=== PATIENT | female | born 1990 | race Caucasian/White ===

== ENCOUNTER 2020-04-24 19:06 | Emergency (ER) | payer OTHER, SELFPAY ==
[2020-04-24 19:20] VITALS: BP 161/88; PULSE 92; RESP 20; TEMP 36.6; O2SAT 100
[2020-04-24 21:35] VITALS: BP 153/109; PULSE 75; RESP 13; O2SAT 98
--- NOTE | 2020-04-24 22:45 | ED.URI ---
HPI - URI/Sore Throat General Chief Complaint: Upper Respiratory Infection Stated Complaint: throat pain Time Seen by Provider: 04/24/20 22:41 Source: patient Mode of arrival: ambulatory Limitations: no limitations History of Present Illness HPI Narrative: 30-year-old with no major medical problems here with complaints of sore throat on and off for past few days complains of occasional shortness of breath. She denies any cough or fever or chills. MD elicited complaint: sore throat Onset (ago): day(s) (2) Consistency: constant Exacerbating factors: swallowing Relieving factors: nothing Associated symptoms: nasal congestion and sore throat Treatments prior to arrival: none Related Data Allergies Allergy/AdvReac Type Severity Reaction Status Date / Time No Known Allergies Allergy Verified 12/18/15 23:05 Review of Systems Review of Systems: All systems reviewed & are unremarkable except as noted in HPI and below Constitutional: Constitutional: Reports no additional constitutional complaints Eyes: Eyes: Reports no additional eye complaints ENT: Reports as per HPI Cardiovascular: Cardiovascular: Reports no additional cardiovascular complaints Respiratory: Respiratory: Reports dyspnea Musculoskeletal: Musculoskeletal: Reports no additional musculoskeletal complaints Integumentary/Breasts: Skin/Breast: Reports system reviewed and no additional complaints, except as docu Neurologic: Reports system reviewed and no additional complaints, except as documented PMFSH Family History Family History Father Family history of diabetes mellitus in first degree relative Social History Social History Smoking status: Former smoker Second hand tobacco smoke exposure: No Smoking end date: 03/14/13 Alcohol intake: never Gender identity (if verbalized by the patient): Female Exam Narrative: Exam Narrative: GENERAL: Well-appearing, well-nourished, and in no acute distress. HEAD: Normocephalic, atraumatic. EYES: PERRLA and EOMI. ENT: Nares clear, no rhinorrhea or epistaxis. Mucous membranes moist. Mild erythematous tonsillar fossa but no exudates NECK: Supple. CHEST: Clear to auscultation. No respiratory distress. HEART: Regular rate and rhythm. No murmur heard. Normal peripheral pulses. EXTREMITIES: Normal range of motion. No edema. SKIN: Warm, dry, no rash. NEURO: No focal deficits. Alert and oriented x3. PSYCH: Normal mood and affect. Course Course Emergency Course: Inform patient about her lab findings advised her to take amoxicillin 3 times a day and follow-up with her primary doctor also recommended her to recheck her blood pressure in few days with her primary doctor. Vital Signs Vital signs: Vital Signs Temperature 36.6 C 04/24/20 19:20 Pulse Rate 92 04/24/20 19:20 Respiratory Rate 20 04/24/20 19:20 Blood Pressure 161/88 H 04/24/20 19:20 Pulse Oximetry 100 04/24/20 19:20 Temperature 36.6 C 04/24/20 19:20 Pulse Rate 75 04/24/20 21:35 Respiratory Rate 13 04/24/20 21:35 Blood Pressure 153/109 H 04/24/20 21:35 Pulse Oximetry 98 04/24/20 21:35 MDM - URI/Sore Throat Lab Data Labs: Strep Screen Presumptive Negative *(Reference Range: Negative)* Discharge Plan Discharge Clinical Impression: Acute streptococcal pharyngitis Hypertension Qualifiers: Hypertension type: unspecified Qualified Code(s): I10 - Essential (primary) hypertension Patient Disposition: Home, Self-Care Condition: Stable Instructions: Antibiotic Form, Strep Throat (DC) Additional Instructions: Take antibiotic as prescribed, follow-up with your primary doctor regarding your high blood pressure Prescriptions: New amoxicillin 875 mg tablet 875 mg PO Q12H Qty: 20 RF: 0 Follow-up/Referrals: João Jones MD [P
[2020-04-24 22:53] VITALS: BP 140/78; PULSE 72; RESP 18; O2SAT 100
== END 2020-04-24 22:54 | disposition home or self-care (01) ==
PROVIDERS: Emergency Provider Family Medicine; PCP Family Medicine
DX: J02.0 Streptococcal pharyngitis (principal); I10 Essential (primary) hypertension; Z87.891 Personal history of nicotine dependence
CPT/HCPCS: 87081; 87880; 99283

== ENCOUNTER 2020-06-03 23:52 | Emergency (ER) | payer OTHER, SELFPAY ==
[2020-06-03 23:56] VITALS: BP 146/74; PULSE 80; RESP 22; TEMP 36.3; O2SAT 100
--- NOTE | 2020-06-04 00:35 | ED.GENADULT ---
HPI - General Adult General Chief complaint: Upper Respiratory Infection Stated complaint: congestion, cold, numbness Time Seen by Provider: 06/04/20 00:29 History of Present Illness HPI narrative: Patient 30-year-old female who presents to emergency department with chief complaint of nasal congestion generalized weakness and body aches. Patient states she was tested for Covid about 3 weeks ago reports that she has had drainage from her nose that she states initially was yellow to green but then was transitioned to clear after she has been taking [id number] Mucinex. Patient states she is not had fevers but states she is just felt weak and is also reported that she has felt a little nauseated and also had some body aches. Related Data Allergies Allergy/AdvReac Type Severity Reaction Status Date / Time No Known Allergies Allergy Verified 12/18/15 23:05 Review of Systems Review of Systems: Narrative: A 10 system review of systems was completed on the patient and is negative except for what is stated in the HPI. Nursing and ancillary documentation was reviewed. [facility] Family History Family History Father Family history of diabetes mellitus in first degree relative Social History Social History Smoking status: Former smoker Second hand tobacco smoke exposure: No Smoking end date: 03/14/13 Alcohol intake: never Gender identity (if verbalized by the patient): Male Exam Narrative: Exam Narrative: GENERAL: Well-appearing, well-nourished, and in no acute distress. HEAD: Normocephalic, atraumatic. EYES: PERRLA and EOMI. ENT: Nares clear, no rhinorrhea or epistaxis. Mucous membranes moist. NECK: Supple. CHEST: Clear to auscultation. No respiratory distress. HEART: Regular rate and rhythm. No murmur heard. Normal peripheral pulses. ABDOMEN: Soft, nontender, nondistended, normal active bowel sounds. EXTREMITIES: Normal range of motion. No edema. SKIN: Warm, dry, no rash. NEURO: No focal deficits. Alert and oriented x3. PSYCH: Normal mood and affect. Course Course Emergency Course: l Vital Signs Vital signs: Vital Signs Temperature 36.3 C L 06/03/20 23:56 Pulse Rate 80 06/03/20 23:56 Respiratory Rate 22 H 06/03/20 23:56 Blood Pressure 146/74 H 06/03/20 23:56 Pulse Oximetry 100 06/03/20 23:56 Temperature 36.3 C L 06/03/20 23:56 Pulse Rate 80 06/03/20 23:56 Respiratory Rate 22 H 06/03/20 23:56 Blood Pressure 146/74 H 06/03/20 23:56 Pulse Oximetry 100 06/03/20 23:56 Medical Decision Making Vital Signs Vital Signs: Vital Signs Temperature 36.3 C L 06/03/20 23:56 Pulse Rate 80 06/03/20 23:56 Respiratory Rate 22 H 06/03/20 23:56 Blood Pressure 146/74 H 06/03/20 23:56 Pulse Oximetry 100 06/03/20 23:56 Temperature 36.3 C L 06/03/20 23:56 Pulse Rate 80 06/03/20 23:56 Respiratory Rate 22 H 06/03/20 23:56 Blood Pressure 146/74 H 06/03/20 23:56 Pulse Oximetry 100 06/03/20 23:56 Discharge Plan Discharge Clinical Impression: Acute bacterial sinusitis Patient Disposition: Home, Self-Care Condition: Stable Instructions: Antibiotic Form, Sinusitis (ED) Prescriptions: New amoxicillin-pot clavulanate [Augmentin] 875-125 mg tablet 1 tablet PO Q12H Qty: 20 RF: 0 No Action amoxicillin 875 mg tablet 875 mg PO Q12H Qty: 20 RF: 0 Follow-up/Referrals: João Jones MD [Primary Care Provider] - Stand Alone Forms: Work/School Release IP Time of Disposition: 00:39
[2020-06-04] MEDS: AMOXICILLIN/CLAVULANATE K 875-125 MG TAB 1 TABLET PO (01:01)
[2020-06-04 01:44] VITALS: BP 148/86; PULSE 84; RESP 18; TEMP 36.8; O2SAT 98
== END 2020-06-04 01:45 | disposition home or self-care (01) ==
LOC: ANHED 06-04 00:42
PROVIDERS: Emergency Provider Emergency Medicine; PCP Family Medicine
DX: J01.90 Acute sinusitis, unspecified (principal); B96.89 Other specified bacterial agents as the cause of diseases classified elsewhere; Z87.891 Personal history of nicotine dependence
CPT/HCPCS: 99283; A9270

== ENCOUNTER 2020-08-14 23:35 | Emergency (ER) | payer OTHER, SELFPAY ==
[2020-08-14 23:52] VITALS: BP 149/76; PULSE 66; RESP 18; TEMP 36.4; O2SAT 100
[2020-08-15 00:59] VITALS: PULSE 70; RESP 18; TEMP 36.6; O2SAT 100
[2020-08-15 01:37] VITALS: BP 139/104; PULSE 78; RESP 12; O2SAT 100
--- NOTE | 2020-08-15 01:48 | ED.GENADULT ---
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 patient denies any URI symptoms or other complaints Related Data Allergies Allergy/AdvReac Type Severity Reaction Status Date / Time No Known Allergies Allergy Verified 08/14/20 23:54 Review of Systems Review of Systems: All systems reviewed & are unremarkable except as noted in HPI and below PMFSH Family History Family History Father Family history of diabetes mellitus in first degree relative Social History Social History Smoking status: Former smoker Second hand tobacco smoke exposure: No Smoking end date: 03/14/13 Alcohol intake: never Gender identity (if verbalized by the patient): Female Exam Narrative: Exam Narrative: GENERAL: Well-appearing, well-nourished, and in no acute distress. HEAD: Normocephalic, atraumatic. EYES: PERRLA and EOMI. ENT: Nares clear, no rhinorrhea or epistaxis. Mucous membranes moist. Oropharynx without tonsillar hypertrophy exudate or other lesions. Bilateral TMs pearly quan nonbulging tenderness at the right external canal with slight redness CHEST: Clear to auscultation. No respiratory distress. No wheezes rales or rhonchi HEART: Regular rate and rhythm. No murmur heard. EXTREMITIES: Normal range of motion. No edema. SKIN: Warm, dry, no rash. NEURO: No focal deficits. Alert and oriented x3. PSYCH: Normal mood and affect. Course Course Emergency Course: Patient with irritation of the right ear patient will be referred to ENT agrees with this is afebrile nontoxic-appearing no distress Vital Signs Vital signs: Vital Signs Temperature 97.5 F L 08/14/20 23:52 Pulse Rate 66 08/14/20 23:52 Respiratory Rate 18 08/14/20 23:52 Blood Pressure 149/76 H 08/14/20 23:52 Pulse Oximetry 100 08/14/20 23:52 Temperature 98 F 08/15/20 00:59 Pulse Rate 78 08/15/20 01:37 Respiratory Rate 12 08/15/20 01:37 Blood Pressure 139/104 H 08/15/20 01:37 Pulse Oximetry 100 08/15/20 01:37 Medical Decision Making MDM Narrative Medical decision making narrative: Patient presented with right ear pain with history of ear infections will be discharged home with follow-up with ENT Vital Signs Vital Signs: Vital Signs Temperature 97.5 F L 08/14/20 23:52 Pulse Rate 66 08/14/20 23:52 Respiratory Rate 18 08/14/20 23:52 Blood Pressure 149/76 H 08/14/20 23:52 Pulse Oximetry 100 08/14/20 23:52 Temperature 98 F 08/15/20 00:59 Pulse Rate 78 08/15/20 01:37 Respiratory Rate 12 08/15/20 01:37 Blood Pressure 139/104 H 08/15/20 01:37 Pulse Oximetry 100 08/15/20 01:37 Discharge Plan Discharge Clinical Impression: Acute pain of right ear Patient Disposition: Home, Self-Care Condition: Stable Instructions: Antibiotic Form, Ear Infection (AC) Additional Instructions: Follow up with your ENT within 1-2 days to set up for reevaluation. Go to ER for shortness of breath, difficulty breathing, chest pain, fever/chills, weakness, nauseau/vomitting, etc. or any other concerns. Take any prescribed medications as directed. If you do not have a drug allergy to tylenol or motrin and can tolerate it then take tylenol or motrin as needed for discomfort/pain. Prescriptions: New amoxicillin 500 mg capsule 500 mg PO Q12H 10 Days Qty: 20 RF: 0 Follow-up/Referrals: João Jones MD [Primary Care Provider] -
== END 2020-08-15 02:00 | disposition home or self-care (01) ==
PROVIDERS: Emergency Provider Emergency Medicine; PCP Family Medicine
DX: H92.01 Otalgia, right ear (principal); Z87.891 Personal history of nicotine dependence
CPT/HCPCS: 99283

== ENCOUNTER 2020-12-29 13:49 | Emergency (ER) | payer OTHER, SELFPAY ==
[2020-12-29] VITALS (9 sets, daily range): BP systolic 136–158; BP diastolic 82–103; PULSE 70–78; RESP 14–18; TEMP 36.6; O2SAT 96–100
--- NOTE | ~2020-12-29 | XR_ITS ---
EXAMINATION: XR chest 2V 12/29/2020 14:57 INDICATION: Left-sided chest pain PROCEDURE: 2 view chest COMPARISON: No prior studies for comparison. FINDINGS: The lungs are clear. The cardiomediastinal silhouette is within normal limits. There are no pleural effusions. There is no pneumothorax suspected. IMPRESSION: 1: NO ACUTE CARDIOPULMONARY DISEASE. Reviewed, dictated and finalized at location B.
--- NOTE | 2020-12-29 14:03 | ECG_ITS ---
Measurements Intervals [place] Rate: 74 P: 42 AL: 178 QRS: 25 QRSD: 105 T: 49 QT: 392 QTc: 437 Interpretive Statements SINUS RHYTHM BORDERLINE R WAVE PROGRESSION, ANTERIOR LEADS BORDERLINE ECG Electronically Signed On 12-29-2020 14:35:34 CDT by Romain Diana D.O.
[2020-12-29 14:30] LABS: Basophils Percent Auto 0.3 % (0.2-1.2); Eosinophils Absolute Auto 0.3 K/mm3 (0-0.3); Hematocrit 34.9 % (37.0-47.0); Hemoglobin 11.1 g/dL (12.0-15.0); Immature Granulocyte Absolute 0.04 K/mm3 (0.00-0.031); Immature Granulocyte Percent A 0.4 % (0-0.5); Lymphocytes Absolute Auto 1.79 K/mm3 (0.9-3.2); Lymphocytes Percent Auto 18.3 % (18.3-44.2); Mean Corpuscular HGB Conc 31.8 g/dl (32-36); Mean Corpuscular Hemoglobin 25.4 pg (26-34); Mean Corpuscular Volume 79.9 fl (80-100); Mean Platelet Volume 9.5 fl (7.4-10.4); Monocytes Absolute Auto 0.5 K/mm3 (0.1-0.6); Monocytes Percent Auto 4.8 % (2.6-8.5); Neutrophils Absolute Auto 7.2 K/mm3 (1.3-6.7); Neutrophils Percent Auto 73.2 % (45.5-73.1); Platelet Count Result 358 k/mm3 (150-375); Red Blood Count 4.37 M/mm3 (4.2-5.4); Red Cell Distribution Width 15.3 % (11.5-14.5); White Blood Count 9.8 K/mm3 (4.5-10.0)
[2020-12-29 14:40] LABS: Anion Gap 11 mmol/L (8-16); Blood Urea Nitrogen 7 mg/dL (7-17); Carbon Dioxide 22 mmol/L (22-30); Chloride 105 mmol/L (98-107); Estimated CRCL calculation 151 ml/min; Estimated Glomerular Filt Rate > 60; Glucose 99 mg/dL (65-110); Sodium 138 mmol/L (137-145)
[2020-12-29 14:48] LABS: Prothrombin Time 13.4 Seconds (11.1-14.7)
[2020-12-29 14:49] LABS: Partial Thromboplastin Time 29.9 SECONDS (22.3-36.8)
[2020-12-29 14:52] LABS: Troponin I < 0.012 ng/mL (0.000-0.034)
--- NOTE | 2020-12-29 16:08 | ED.GENADULT ---
HPI - General Adult General Chief complaint: Anxiety Stated complaint: anxiety Time Seen by Provider: 12/29/20 15:08 History of Present Illness HPI narrative: Patient is a 30-year-old female who presents ER after having what she thinks is an anxiety attack. Reports she is driving and was on the phone with her boyfriend when she started to feel anxious. She reports her heart was racing and she was short of breath similar to previous anxiety attacks. However she felt like she had some blurred vision and some numbness in her left forearm from her elbow to her wrist. Symptoms lasted about 5 minutes and she is able to breathe slowly to get herself through the event which is typical for her. No subsequent events. No loss of consciousness. Denies chest pain or chest pressure. No new medications. Denies any recent stressors. No history of arrhythmia. Symptoms occurred at 1 PM. Related Data Allergies Allergy/AdvReac Type Severity Reaction Status Date / Time sulfamethoxazole AdvReac Mild Vomiting Verified 12/29/20 15:13 [From Bactrim] trimethoprim [From Bactrim] AdvReac Mild Vomiting Verified 12/29/20 15:13 Review of Systems Review of Systems: All systems reviewed & are unremarkable except as noted in HPI and below Constitutional: Constitutional: Denies chills, Denies fever(s) and Denies weakness ENT: Denies nasal congestion and Denies sore throat Cardiovascular: Cardiovascular: Denies chest pain, Denies rapid heart rate and Denies radiating jaw, neck or arm pain Respiratory: Respiratory: Denies cough, Reports dyspnea and Denies wheezing Neurologic: Denies syncope, Denies focal weakness and Reports numbness Psychiatric: Psychiatric: Reports anxiety and Denies depression [facility] Past Medical History Medical History (Updated 12/29/20 @ 16:16 by Roger Calderon MD) Anxiety Surgical History Surgical History (Updated 12/29/20 @ 16:10 by Roger Calderon MD) History of section Family History Family History Father Family history of diabetes mellitus in first degree relative Social History Social History Smoking status: Former smoker Second hand tobacco smoke exposure: No Smoking end date: 03/14/13 Alcohol intake: never Substance use type: does not use Gender identity (if verbalized by the patient): Female Exam Narrative: GENERAL: Well-appearing, well-nourished, and in no acute distress. HEAD: Normocephalic, atraumatic. EYES: PERRL and EOMI. CHEST: Clear to auscultation. No respiratory distress. HEART: Regular rate and rhythm. Normal peripheral pulses. Sensation intact in extremities. ABDOMEN: Soft, nontender, nondistended. EXTREMITIES: Normal range of motion. No edema. SKIN: Warm, dry, no rash. NEURO: Alert and oriented x3. PSYCH: Normal mood and affect. Course Vital Signs Vital signs: Vital Signs Temperature 97.8 F 12/29/20 14:00 Pulse Rate 78 12/29/20 14:00 Respiratory Rate 14 12/29/20 14:00 Blood Pressure 151/101 H 12/29/20 14:00 Pulse Oximetry 100 12/29/20 14:00 Temperature 97.8 F 12/29/20 14:00 Pulse Rate 70 12/29/20 15:05 Respiratory Rate 17 12/29/20 15:05 Blood Pressure 158/97 H 12/29/20 15:05 Pulse Oximetry 100 12/29/20 15:05 Medical Decision Making Vital Signs Vital Signs: Vital Signs Temperature 97.8 F 12/29/20 14:00 Pulse Rate 78 12/29/20 14:00 Respiratory Rate 14 12/29/20 14:00 Blood Pressure 151/101 H 12/29/20 14:00 Pulse Oximetry 100 12/29/20 14:00 Temperature 97.8 F 12/29/20 14:00 Pulse Rate 70 12/29/20 15:05 Respiratory Rate 17 12/29/20 15:05 Blood Pressure 158/97 H 12/29/20 15:05 Pulse Oximetry 100 12/29/20 15:05 Lab Data Result diagrams: 12/29/20 14:09 12/29/20 14:09 Labs: Lab Results 12/29/20 12/29/20 12/29/20 Range/Unit
== END 2020-12-29 16:29 | disposition home or self-care (01) ==
PROVIDERS: Emergency Provider Emergency Medicine; PCP Family Medicine
DX: F41.9 Anxiety disorder, unspecified (principal); Z87.891 Personal history of nicotine dependence; R00.2 Palpitations; R94.31 Abnormal electrocardiogram [ECG] [EKG]
CPT/HCPCS: 36415; 71046; 80048; 84484; 85025; 85610; 85730; 93005; 99284

== ENCOUNTER 2021-01-08 12:25 | Emergency (ER) | payer OTHER, SELFPAY ==
[2021-01-08] VITALS (16 sets, daily range): BP systolic 137–150; BP diastolic 66–89; PULSE 65–78; RESP 11–21; TEMP 36.2–36.5; O2SAT 98–100
--- NOTE | ~2021-01-08 | XR_ITS ---
EXAMINATION: XR chest 2V DATE: 01/08/2021 13:30 INDICATION: Chest pain and shortness of breath TECHNIQUE: PA and lateral views of the chest are obtained. COMPARISON: 12/29/2020 FINDINGS: The lungs are free of acute opacities. There is no pleural effusion or pneumothorax. The ca rdiomediastinal silhouette is normal. There is moderate thoracic spondylosis. IMPRESSION: 1. No acute cardiopulmonary abnormality. Reviewed, dictated and finalized at location A.
--- NOTE | 2021-01-08 12:46 | ECG_ITS ---
Measurements Intervals [place] Rate: 71 P: 36 HI: 176 QRS: 30 QRSD: 100 T: 52 QT: 393 QTc: 428 Interpretive Statements SINUS RHYTHM ANTERIOR INFARCT, AGE INDETERMINATE ABNORMAL ECG Electronically Signed On 01-08-2021 13:12:34 CDT by Romain Diana D.O.
[2021-01-08 13:23] LABS: Basophils Percent Auto 0.4 % (0.2-1.2); Eosinophils Absolute Auto 0.3 K/mm3 (0-0.3); Eosinophils Percent Auto 3.8 % (0-4.4); Hematocrit 35.8 % (37.0-47.0); Hemoglobin 11.3 g/dL (12.0-15.0); Immature Granulocyte Absolute 0.02 K/mm3 (0.00-0.031); Immature Granulocyte Percent A 0.3 % (0-0.5); Lymphocytes Absolute Auto 1.81 K/mm3 (0.9-3.2); Lymphocytes Percent Auto 25.3 % (18.3-44.2); Mean Corpuscular HGB Conc 31.6 g/dl (32-36); Mean Corpuscular Hemoglobin 25.9 pg (26-34); Mean Corpuscular Volume 82.1 fl (80-100); Mean Platelet Volume 9.6 fl (7.4-10.4); Monocytes Absolute Auto 0.4 K/mm3 (0.1-0.6); Monocytes Percent Auto 5.7 % (2.6-8.5); Neutrophils Absolute Auto 4.6 K/mm3 (1.3-6.7); Neutrophils Percent Auto 64.5 % (45.5-73.1); Platelet Count Result 333 k/mm3 (150-375); Red Blood Count 4.36 M/mm3 (4.2-5.4); Red Cell Distribution Width 15.1 % (11.5-14.5); White Blood Count 7.2 K/mm3 (4.5-10.0)
[2021-01-08 13:31] LABS: Anion Gap 10 mmol/L (8-16); Blood Urea Nitrogen 8 mg/dL (7-17); Calcium 9.2 mg/dL (8.4-10.2); Carbon Dioxide 22 mmol/L (22-30); Chloride 106 mmol/L (98-107); Estimated CRCL calculation 180 ml/min; Estimated Glomerular Filt Rate > 60; Glucose 95 mg/dL (65-110); Potassium 4.3 mmol/L (3.4-5.0); Sodium 138 mmol/L (137-145)
[2021-01-08 13:36] LABS: Prothrombin Time 13.4 Seconds (11.1-14.7)
[2021-01-08 13:37] LABS: Partial Thromboplastin Time 28.2 SECONDS (22.3-36.8)
[2021-01-08 13:43] LABS: Troponin I < 0.012 ng/mL (0.000-0.034)
[2021-01-08 13:47] LABS: Add Urine Microscopic? YES; Appearance Urine Cloudy (Clear); Bilirubin Urine Negative (Negative); Blood Urine Negative (Negative); Color Urine Yellow (Yellow); Glucose Urine UA Negative (Negative); Ketones Urine Negative (Negative); Leukocyte Esterase Ur Trace LEU/UL (Negative); Nitrate Urine Negative (Negative); Protein Urine Negative (Negative); Specific Grav Ur 1.015 (1.001-1.035); Squamous Epithelial Cell Urine Many /hpf (Few)
--- NOTE | 2021-01-08 16:22 | ED.ANXIETY ---
HPI - Anxiety General Chief Complaint: Anxiety Stated Complaint: cp/anxiety Time Seen by Provider: 01/08/21 16:22 Source: patient Mode of arrival: ambulatory Limitations: no limitations History of Present Illness HPI narrative: Patient is an 30-year-old female with history of morbid obesity, hypertension, presenting for evaluation of intermittent chest pain. Patient states that she has had intermittent chest pain over the past several weeks. At times the chest pain will occur when she is driving, at times it occurs with activity. Pain is located in the center of her chest, described as aching in nature without radiation to the jaw or neck. She sometimes experiences back pain. She denies any diaphoresis but does report nausea. Denies any recent episodes of vomiting. She denies ripping or tearing sensation to the lower flanks. Patient denies fever, chills, cough. At times she does feel short of breath. Patient reports she has intermittent leg swelling but denies any current calf pain or leg swelling. No rashes. Patient is not vaccinated for Covid. No known history of Covid infection. No recent upper respiratory infection type symptoms. Patient states that she is very anxious about various things in her life, is worried that she perhaps has had a heart attack. Patient does not smoke. She is on Nexplanon for control. She denies history of coagulopathy. No recent car or air travel. Related Data Allergies Allergy/AdvReac Type Severity Reaction Status Date / Time sulfamethoxazole AdvReac Mild Vomiting Verified 12/29/20 15:13 [From Bactrim] trimethoprim [From Bactrim] AdvReac Mild Vomiting Verified 12/29/20 15:13 Review of Systems Review of Systems: CONSTITUTIONAL: Denies fever, chills, or sweats. EYES: Denies visual changes, redness, or discharge. ENT: Denies rhinorrhea, congestion, sore throat, or otalgia. CARDIOVASCULAR: Reports chest pain without palpitations, reports intermittent leg edema, denies leg edema currently RESPIRATORY: Denies cough, reports intermittent shortness of breath GASTROINTESTINAL: Denies abdominal pain, reports nausea without vomiting GENITOURINARY: Denies dysuria or hematuria. SKIN: Denies rash or itching. MUSCULOSKELETAL: Denies back pain, joint pain, or myalgia. NEUROLOGIC: Denies headache, numbness, or weakness. PSYCHIATRIC: Reports anxiety, denies homicidal or suicidal ideation PMFSH Past Medical History Medical History Anxiety Surgical History Surgical History History of section Family History Family History Father Family history of diabetes mellitus in first degree relative Social History Social History Smoking status: Former smoker Second hand tobacco smoke exposure: No Smoking end date: 03/14/13 Alcohol intake: never Substance use type: does not use Gender identity (if verbalized by the patient): Female Exam Narrative: GENERAL: Awake, alert, conversant HEAD: Normocephalic, atraumatic. EYES: PERRLA and EOMI. ENT: Nares clear, no rhinorrhea or epistaxis. Mucous membranes moist. NECK: Supple. CHEST: No respiratory distress, breathing even and non labored, positive chest wall tenderness which reproduces pain HEART: Regular rate, sinus rhythm ABDOMEN:Non distended, non tender, no epigastric tenderness EXTREMITIES: Normal range of motion. No edema. SKIN: Warm, dry, no rash. NEURO:No focal deficits. Alert and oriented x3 Course Vital Signs Vital signs: Vital Signs Temperature 36.2 C L 01/08/21 12:41 Pulse Rate 72 01/08/21 12:41 Respiratory Rate 16 01/08/21 12:41 Blood Pressure 150/85 H 01/08/21 12:41 Pulse Oximetry 99 01/08/21 12:41 Temperature 36.5 C 01/08/21 16:08 Pulse Rate 78 01/08/21 16:48 Respiratory R
[2021-01-08 16:56] LABS: Lipase 68 U/L (23-300)
[2021-01-08 17:21] LABS: D Dimer 0.27 ug/mL (<0.48)
[2021-01-08 17:22] LABS: Troponin I < 0.012 ng/mL (0.000-0.034)
[2021-01-08] MEDS: KETOROLAC 15 MG/ML VIAL (*BKC) IV PUSH (18:10)
[2021-01-08] MEDS: LORazepam (*CRX) 0.5 MG TABLET PO (18:10)
== END 2021-01-08 19:11 | disposition home or self-care (01) ==
PROVIDERS: Emergency Medicine; Emergency Provider Emergency Medicine; PCP Family Medicine
DX: F41.0 Panic disorder [episodic paroxysmal anxiety] (principal); R07.89 Other chest pain; E66.01 Morbid (severe) obesity due to excess calories; Z68.42 Body mass index [BMI] 45.0-49.9, adult; I10 Essential (primary) hypertension; Z87.891 Personal history of nicotine dependence; R94.31 Abnormal electrocardiogram [ECG] [EKG]
CPT/HCPCS: 36415; 71046; 80048; 81001; 81025; 83690; 84484; 85025; 85380; 85610; 85730; 93005; 96374; 99284; A9270; J1885

== ENCOUNTER 2021-02-13 16:30 | Emergency (ER) | payer OTHER, SELFPAY ==
[2021-02-13 16:54] VITALS: BP 121/63; PULSE 72; RESP 16; TEMP 36.9; O2SAT 100
--- NOTE | 2021-02-13 17:16 | PC.NURSE ---
called pt twice for triage without answer. called at [id number] and [id number]
== END 2021-02-14 02:26 | disposition left against medical advice (07) ==
LOC: ANHED 17:27
PROVIDERS: PCP Family Medicine
DX: Z53.21 Procedure and treatment not carried out due to patient leaving prior to being seen by health care provider (principal)
CPT/HCPCS: 99199

== ENCOUNTER 2021-05-14 10:18 | Emergency (ER) | payer OTHER, SELFPAY ==
--- NOTE | ~2021-05-14 | CT_ITS ---
EXAMINATION: CT abdomen pelvis w con EXAM DATE: 05/14/2021 12:38 INDICATION: Abdominal pain. TECHNIQUE: Spiral CT of the abdomen and pelvis was performed following intravenous injection of 100 m L Omnipaque 350. Axial, coronal and sagittal images of the abdomen and pelvis were reviewed. The do se-length product (DLP) for this examination was 1657.33 mGy-cm. The exposure was tailored according to patient size (auto mA exposure control), and iterative reconstruction (ASIR) was used as addition al dose reduction technique. There is no prior study for comparison. FINDINGS: The liver, spleen, adrenal glands and pancreas are unremarkable. Gallbladder is unremarkab le. No biliary obstruction. Portal and splenic veins are patent. Kidneys enhance symmetrically. T here is no hydronephrosis. The uterus is anteverted and morphologically normal. The bladder is un remarkable. There is no retroperitoneal or pelvic lymphadenopathy. The appendix is normal. The stomach and small bowel are unremarkable. There is expected amount of c olonic stool. No free intraperitoneal gas. The heart is normal in size. There are no pericardial or pleural effusions. The lung bases are unremarkable. Chronic bilateral L5 spondylolysis and mode rate L5-S1 disc disease. Only about 2 mm anterolisthesis. IMPRESSION: No acute intra-abdominal findings. Reviewed, dictated and finalized at location B. HIATRIC NP
[2021-05-14 10:24] VITALS: BP 120/98; PULSE 75; RESP 16; TEMP 36.8; O2SAT 98
--- NOTE | 2021-05-14 10:33 | ECG_ITS ---
Measurements Intervals [place] Rate: 71 P: 23 WV: 182 QRS: 35 QRSD: 94 T: 44 QT: 380 QTc: 415 Interpretive Statements SINUS RHYTHM CANNOT RULE OUT ANTERIOR INFARCTION, AGE UNDETERMINED ABNORMAL EKG COMPARED TO ECG 01/08/2021 12:50:18 NO SIGNIFICANT CHANGES Electronically Signed On 05-14-2021 15:22:55 [employer] by Robert Navarro M.D.
[2021-05-14] MEDS: SODIUM CHLORIDE 0.9% IV 1,000 ML 999 ML IV CONT (11:10)
[2021-05-14 11:15] LABS: Basophils Percent Auto 0.5 % (0.2-1.2); Eosinophils Absolute Auto 0.3 K/mm3 (0-0.3); Eosinophils Percent Auto 4.3 % (0-4.4); Hematocrit 32.4 % (37.0-47.0); Hemoglobin 9.9 g/dL (12.0-15.0); Immature Granulocyte Absolute 0.01 K/mm3 (0.00-0.031); Immature Granulocyte Percent A 0.2 % (0-0.5); Lymphocytes Absolute Auto 1.94 K/mm3 (0.9-3.2); Lymphocytes Percent Auto 30.6 % (18.3-44.2); Mean Corpuscular HGB Conc 30.6 g/dl (32-36); Mean Corpuscular Hemoglobin 25.2 pg (26-34); Mean Corpuscular Volume 82.4 fl (80-100); Mean Platelet Volume 10.2 fl (7.4-10.4); Monocytes Absolute Auto 0.5 K/mm3 (0.1-0.6); Monocytes Percent Auto 7.7 % (2.6-8.5); Neutrophils Absolute Auto 3.6 K/mm3 (1.3-6.7); Neutrophils Percent Auto 56.7 % (45.5-73.1); Platelet Count Result 370 k/mm3 (150-375); Red Blood Count 3.93 M/mm3 (4.2-5.4); Red Cell Distribution Width 15.9 % (11.5-14.5); White Blood Count 6.4 K/mm3 (4.5-10.0)
[2021-05-14 11:21] LABS: Add Urine Microscopic? YES; Appearance Urine Cloudy (Clear); Bacteria Urine Trace /hpf; Bilirubin Urine Negative (Negative); Blood Urine 3+ (Negative); Color Urine Yellow (Yellow); Glucose Urine UA Negative (Negative); Ketones Urine Negative (Negative); Leukocyte Esterase Ur Negative LEU/UL (Negative); Mucus Urine Rare /lpf; Nitrate Urine Negative (Negative); Protein Urine Negative (Negative); Specific Grav Ur 1.011 (1.001-1.035); Squamous Epithelial Cell Urine Many /hpf (Few); Urobilinogen Urine Negative mg/dL (<2.0)
[2021-05-14 11:29] VITALS: BP 117/73; PULSE 62; RESP 18; TEMP 37.1; O2SAT 99
--- NOTE | 2021-05-14 11:31 | PC.NURSE ---
Bedside test was ordered all urine sent too lab. RN called lab and they will run test as Pt stated she's unable to void again at this time. MD Esquivel
[2021-05-14 11:33] LABS: Alanine Aminotransferase 14 U/L (4-35); Alkaline Phosphatase 59 U/L (38-126); Anion Gap 7 mmol/L (8-16); Aspartate Amino Transferase 30 U/L (14-36); Bilirubin,Total 0.6 mg/dL (0.2-1.3); Blood Urea Nitrogen 7 mg/dL (7-17); Calcium 8.3 mg/dL (8.4-10.2); Carbon Dioxide 22 mmol/L (22-30); Chloride 108 mmol/L (98-107); Estimated CRCL calculation 171 ml/min; Estimated Glomerular Filt Rate > 60; Glucose 90 mg/dL (65-110); Potassium 4.1 mmol/L (3.4-5.0); Sodium 137 mmol/L (137-145)
[2021-05-14 11:37] LABS: Lipase 66 U/L (23-300)
--- NOTE | 2021-05-14 11:53 | ED.ABDPAIN ---
HPI - Abdominal Pain General Chief Complaint: Abdominal Pain Stated Complaint: Abd and Chest pain Time Seen by Provider: 05/14/21 10:24 Source: patient Mode of arrival: ambulatory Limitations: no limitations History of Present Illness HPI narrative: 31-year-old female with history significant for anxiety presents today with complaints of abdominal pain for the last couple days. Patient states today the pain has gone from her abdomen to her chest so she got concerned and concerned and came here today. Patient rates pain an 8 out of 10 at the current time. Pain is cramping in nature with sometimes sharp. Patient currently menstruating states she is at the end of it. Patient states this. Seems worse than her previous ones that she has had lately. Patient denies runny nose, cough, fevers, shortness of breath, sick contacts, and diarrhea Related Data Allergies Allergy/AdvReac Type Severity Reaction Status Date / Time sulfamethoxazole AdvReac Mild Vomiting Verified 12/29/20 15:13 [From Bactrim] trimethoprim [From Bactrim] AdvReac Mild Vomiting Verified 12/29/20 15:13 Review of Systems Review of Systems: CONSTITUTIONAL: Denies fever, chills, or sweats. EYES: Denies visual changes, redness, or discharge. ENT: Denies rhinorrhea, congestion, sore throat, or otalgia. CARDIOVASCULAR: Positive for intermittent chest pain. Denies palpitations, or edema. RESPIRATORY: Denies cough or dyspnea. GASTROINTESTINAL: Positive for abdominal pain. Denies nausea, vomiting, or diarrhea. GENITOURINARY: Denies dysuria or hematuria. SKIN: Denies rash or itching. MUSCULOSKELETAL: Denies back pain, joint pain, or myalgia. NEUROLOGIC: Denies headache, numbness, dizziness, or weakness. PSYCHIATRIC: Denies anxiety or depression. [facility] Past Medical History Medical History Anxiety Surgical History Surgical History History of section Family History Family History Father Family history of diabetes mellitus in first degree relative Social History Social History Smoking status: Former smoker Second hand tobacco smoke exposure: No Smoking end date: 03/14/13 Alcohol intake: never Substance use type: does not use Gender identity (if verbalized by the patient): Female Exam Narrative: GENERAL: Well-appearing, well-nourished, and in no acute distress. HEAD: Normocephalic, atraumatic. EYES: PERRLA and EOMI. ENT: Nares clear, no rhinorrhea or epistaxis. Mucous membranes moist. Oropharynx without tonsillar hypertrophy exudate or other lesions. Bilateral TMs pearly quan nonbulging NECK: Supple. No adenopathy or masses. No carotid bruits or JVD CHEST: Clear to auscultation. No respiratory distress. No wheezes rales or rhonchi HEART: Regular rate and rhythm. No murmur heard. Normal peripheral pulses. ABDOMEN: Soft, generalized tenderness, nondistended, normal active bowel sounds. EXTREMITIES: Normal range of motion. No edema. SKIN: Warm, dry, no rash. NEURO: No focal deficits. Alert and oriented x3. PSYCH: Normal mood and affect. Course Course Emergency Course: Patient with noted improvement after IV fluids, Zofran, and dicyclomine. Results reviewed with patient. Patient ready to be discharged. Plan follow-up with primary. Patient in agreement with plan. Vital Signs Vital signs: Vital Signs Temperature 36.8 C 05/14/21 10:24 Pulse Rate 75 05/14/21 10:24 Respiratory Rate 16 05/14/21 10:24 Blood Pressure 120/98 H 05/14/21 10:24 Pulse Oximetry 98 05/14/21 10:24 Temperature 36.2 C L 05/14/21 13:31 Pulse Rate 67 05/14/21 13:31 Respiratory Rate 14 05/14/21 13:31 Blood Pressure 139/76 05/14/21 13:31 Pulse Oximetry 100 05/14/21 13:31 MDM - Abdominal Pain MDM Narrative Medic
[2021-05-14 12:24] LABS: Pregnancy On Board Control Positive; Urine Pregnancy Test Negative
[2021-05-14] MEDS: DICYCLOMINE HCL INJ 20 MG/2 ML VIAL IM (12:42)
[2021-05-14] MEDS: PROCHLORPERAZINE EDISYLATE 10 MG/2 ML VIAL IV PUSH (12:43)
[2021-05-14 13:31] VITALS: BP 139/76; PULSE 67; RESP 14; TEMP 36.2; O2SAT 100
--- NOTE | 2021-05-14 13:33 | PC.NURSE ---
Patient discharged to home with all discyharge instructions and all personal belongings. Verbalizes understanding iof discharge instructions.
== END 2021-05-14 13:34 | disposition home or self-care (01) ==
PROVIDERS: Emergency Provider Nurse Practitioner Family; PCP Family Medicine
DX: R10.84 Generalized abdominal pain (principal); Z87.891 Personal history of nicotine dependence
CPT/HCPCS: 36415; 74177; 80053; 81001; 81025; 83690; 85025; 93005; 96361; 96372; 96374; 99284; J0500; J0780; J7030; Q9967

== ENCOUNTER 2021-12-22 14:47 | Emergency (ER) | payer OTHER, SELFPAY ==
--- NOTE | ~2021-12-22 | US_ITS ---
EXAMINATION: US venous doppler [facility] DATE: 12/22/2021 16:48 INDICATION: Severe left calf pain TECHNIQUE: Adorno scale images without and with compression and Doppler images of the left lower extrem ity veins were obtained. COMPARISON: None FINDINGS: The left common femoral vein, profunda femoral vein, femoral vein, popliteal vein, peroneal trunk, posterior tibial veins, and greater saphenous vein are patent. IMPRESSION: 1. Patent left lower extremity veins. No evidence of deep venous thrombosis. Reviewed, dictated and finalized at location A.
--- NOTE | ~2021-12-22 | XR_ITS ---
EXAM: XR knee LT min 4V DATE: 12/22/2021 17:30 HISTORY: severe knee pain . COMPARISON: None available. FINDINGS: Normal mineralization. No fracture or dislocation. No lytic or blastic lesion. Moderate tr icompartmental osteoarthritis. Moderate left knee joint effusion. No erosion or periosteal change. So ft tissues within normal limits. IMPRESSION: No acute osseous finding the left knee. Reviewed, dictated and finalized at location K.
[2021-12-22 15:16] VITALS: BP 151/94; PULSE 87; RESP 16; TEMP 36.3; O2SAT 99
--- NOTE | 2021-12-22 17:03 | ED.GENADULT ---
HPI - General Adult General Chief complaint: Extremity Injury, Lower Stated complaint: lle pain Time Seen by Provider: 12/22/21 15:59 History of Present Illness HPI narrative: Patient is a 31-year-old female presenting with left knee pain. Patient states that she woke up this morning with pain in her left knee that has persisted throughout the day. States it is worse with ambulation. States that her left knee looked slightly swollen as well. 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 She denies further complaints. Related Data Allergies Allergy/AdvReac Type Severity Reaction Status Date / Time sulfamethoxazole AdvReac Mild Vomiting Verified 12/29/20 15:13 [From Bactrim] trimethoprim [From Bactrim] AdvReac Mild Vomiting Verified 12/29/20 15:13 Review of Systems Review of Systems: All systems reviewed & are unremarkable except as noted in HPI and below PMFSH Past Medical History Medical History Anxiety Surgical History Surgical History History of section Family History Family History Father Family history of diabetes mellitus in first degree relative Social History Social History Smoking status: Former smoker Second hand tobacco smoke exposure: No Smoking end date: 03/14/13 Alcohol intake: never Substance use type: does not use Gender identity (if verbalized by the patient): Female Exam Narrative: GENERAL: Well-appearing, well-nourished, and in no acute distress. HEAD: Normocephalic, atraumatic. EYES: PERRLA and EOMI. ENT: Nares clear, no rhinorrhea or epistaxis. Mucous membranes moist. NECK: Supple. CHEST: Clear to auscultation. No respiratory distress. HEART: Regular rate and rhythm. No murmur heard. Normal peripheral pulses. ABDOMEN: Soft, nontender, nondistended, normal active bowel sounds. EXTREMITIES: Normal range of motion. diffuse tenderness of left knee with palpation; no calf swelling; no erythema or skin changes; distal pulses DP/PT 2+ SKIN: Warm, dry, no rash. NEURO: No focal deficits. Alert and oriented x3. PSYCH: Normal mood and affect. Course Course Emergency Course: Patient is a 31-year-old female presenting with left knee pain. Exam remarkable for the above. Vitals are within normal limits. Patient is well-appearing and in no acute distress. Venous Doppler was obtained and shows no evidence of DVT. X-ray was obtained which shows moderate arthritis in the left knee with an associated effusion. Suspect that this is the cause of her pain. There is no evidence of infection, I am not concerned for septic joint at this time. Discussed with the patient appropriate supportive care. Appropriate return precautions were given. Patient voiced understanding and was agreeable with plan. Discharged in stable condition. Vital Signs Vital signs: Vital Signs Temperature 97.3 F L 12/22/21 15:16 Pulse Rate 87 12/22/21 15:16 Respiratory Rate 16 12/22/21 15:16 Blood Pressure 151/94 H 12/22/21 15:16 Pulse Oximetry 99 12/22/21 15:16 Temperature 97.3 F L 12/22/21 15:16 Pulse Rate 87 12/22/21 15:16 Respiratory Rate 16 12/22/21 15:16 Blood Pressure 151/94 H 12/22/21 15:16 Pulse Oximetry 99 12/22/21 15:16 Medical Decision Making Vital Signs Vital Signs: Vital Signs Temperature 97.3 F L 12/22/21 15:16 Pulse Rate 87 12/22/21 15:16 Respiratory Rate 16 12/22/21 15:16 Blood Pressure 151/94 H 12/22/21 15:16 Pulse Oximetry 99 12/22/21 15:16 Temperature 97.3 F L 12/22/21 15:16 Pulse Rate 87 12/22/21 15:16 Respiratory Rate 16 12/22/21 15:16 Blood Pressure 151/94 H 12/22/21 15:16 Pulse Oximetry 99 12/22/21 15:16 C
[2021-12-22] MEDS: IBUPROFEN 400 MG TABLET 800 MG PO (17:23)
[2021-12-22] MEDS: ACETAMINOPHEN 500 MG TABLET 1000 MG PO (17:23)
== END 2021-12-22 18:09 | disposition home or self-care (01) ==
PROVIDERS: Emergency Provider Emergency Medicine
DX: M17.12 Unilateral primary osteoarthritis, left knee (principal); Z87.891 Personal history of nicotine dependence
CPT/HCPCS: 73564; 93971; 99284; A9270

== ENCOUNTER 2022-06-01 16:03 | Emergency (ER) | payer OTHER, SELFPAY ==
--- NOTE | ~2022-06-01 | XR_ITS ---
EXAM: XR knee LT min 4V DATE: 06/01/2022 17:22 HISTORY: SLIPPED AND FELL ON HER KNEE, PAIN IN LOWER KNEE . COMPARISON: 12/22/2021. FINDINGS: Normal mineralization. No fracture or dislocation. No lytic or blastic lesion. Moderate le ft knee osteoarthritis. Small left knee joint effusion. No erosion or periosteal change. Soft tissues within normal limits. IMPRESSION: No acute osseous finding in the left knee. Reviewed, dictated and finalized at location K.
[2022-06-01 16:24] VITALS: BP 140/85; PULSE 82; RESP 18; TEMP 36.6; O2SAT 100
--- NOTE | 2022-06-01 17:06 | ED.GENADULT ---
HPI - General Adult General Chief complaint: Extremity Injury, Lower Stated complaint: Left Leg injury Time Seen by Provider: 06/01/22 17:04 History of Present Illness HPI narrative: This is a 32-year-old female presents the ED with no pertinent PMH and complaining of left knee pain after a fall today. She had a mechanical fall in which she tripped over dust fatima and landed directly onto the left knee. She has had pain and swelling since the fall today. Reports she is currently being worked up for bilateral knee arthritis and patellar maltracking with her orthopedic clinic. She also has a PT appointment on . Denies any further source of pain or injury. Denies fever, chills, numbness, weakness. Denies erythema, warmth. Related Data Allergies Allergy/AdvReac Type Severity Reaction Status Date / Time sulfamethoxazole AdvReac Mild Vomiting Verified 06/01/22 17:04 [From Bactrim] trimethoprim [From Bactrim] AdvReac Mild Vomiting Verified 06/01/22 17:04 Review of Systems Review of Systems: CONSTITUTIONAL: Denies fever, chills, or sweats. SKIN: Denies rash or itching. MUSCULOSKELETAL: Endorses left knee pain. Denies back pain, other joint pain, or myalgia. NEUROLOGIC: Denies headache, numbness, dizziness, or weakness. PSYCHIATRIC: Denies anxiety or depression. PMFSH Past Medical History Medical History Anxiety Surgical History Surgical History History of section Family History Family History Father Family history of diabetes mellitus in first degree relative Social History Social History Smoking status: Former smoker Second hand tobacco smoke exposure: No Smoking end date: 03/14/13 Alcohol intake: never Substance use type: does not use Gender identity (if verbalized by the patient): Female Exam Narrative: GENERAL: Well-appearing, well-nourished, and in no acute distress. HEAD: Normocephalic, atraumatic. EYES: PERRLA and EOMI. EXTREMITIES: Left knee: mild effusion. Diffuse tenderness. No redness or warmth. No deformity. Soft compartments. Active range of motion is full. Right knee: Benign. Bilateral maltracking of patella. MSK exam otherwise normal range of motion. No edema. DP and PT pulses strong and intact bilaterally. SKIN: Warm, dry, no rash. NEURO: Alert and oriented x3. No focal deficits. PSYCH: Normal mood and affect. Course Vital Signs Vital signs: Vital Signs Temperature 97.9 F 06/01/22 16:24 Pulse Rate 82 06/01/22 16:24 Respiratory Rate 18 06/01/22 16:24 Blood Pressure 140/85 06/01/22 16:24 Pulse Oximetry 100 06/01/22 16:24 Oxygen Delivery Room Air 06/01/22 16:24 Temperature 97.9 F 06/01/22 18:02 Pulse Rate 78 06/01/22 18:02 Respiratory Rate 16 06/01/22 18:02 Blood Pressure 131/83 06/01/22 18:02 Pulse Oximetry 98 06/01/22 18:02 Oxygen Delivery Room Air 06/01/22 16:24 Medical Decision Making MDM Narrative Medical decision making narrative: This is a 32-year-old female with PMH of bilateral knee arthritis who presents to the ED with a chief complaint of left knee pain after a fall earlier today. This fall was mechanical in nature as she tripped over a dust fatima. Vitals are stable. Afebrile. Exam shows minimal effusion and left knee diffuse tenderness. Strong pulses, soft compartments, full range of motion. She is ambulatory. X-rays of the knee left knee are negative. Encourage close follow-up with her physical therapist and orthopedic clinic on this knee pain. Advised to take [id number] pain medications. Supportive measures discussed. Return precautions given. Patient is agreeable with the plan for discharge. This patient was discussed with Dr. Jamison who agrees with plan for
[2022-06-01 18:02] VITALS: BP 131/83; PULSE 78; RESP 16; TEMP 36.6; O2SAT 98
== END 2022-06-01 18:32 | disposition home or self-care (01) ==
PROVIDERS: Emergency Provider Physician Assistant
DX: M25.562 Pain in left knee (principal); W01.0XXA Fall on same level from slipping, tripping and stumbling without subsequent striking against object, initial encounter; M17.0 Bilateral primary osteoarthritis of knee; Z87.891 Personal history of nicotine dependence
CPT/HCPCS: 73564; 99283

== ENCOUNTER 2022-08-26 10:16 | Emergency (ER) | payer MEDICAID, SELFPAY ==
[2022-08-26 10:22] VITALS: BP 154/95; PULSE 85; RESP 18; TEMP 36.6; O2SAT 98
--- NOTE | 2022-08-26 11:35 | ED.DENTAL ---
HPI - Dental/Oral General Chief complaint: Dental/Oral Stated complaint: right side ear pain Time Seen by Provider: 08/26/22 10:48 Source: patient and RN notes reviewed Mode of arrival: ambulatory Limitations: no limitations History of Present Illness HPI Narrative: This is a 32 year old female who presents for evaluation of right jaw pain and right ear pain. She states she has history of right ear tubes and right dental issues. She developed pain to right ear and right jaw on Tuesday. She has been taking ibuprofen for her pain with mild relief. She is unable to eat because eating makes her pain worse. She denies any fever or drainage from her ear Related Data Allergies Allergy/AdvReac Type Severity Reaction Status Date / Time sulfamethoxazole AdvReac Mild Vomiting Verified 06/01/22 17:04 [From Bactrim] trimethoprim [From Bactrim] AdvReac Mild Vomiting Verified 06/01/22 17:04 Review of Systems Review of Systems: All systems reviewed & are unremarkable except as noted in HPI and below Constitutional: Constitutional: Denies weakness Cardiovascular: Cardiovascular: Denies syncope, Denies rapid heart rate, Denies irregular heart rhythm, Denies leg edema and Denies dyspnea Respiratory: Respiratory: Denies chest congestion, Denies hemoptysis, Denies excessive phlegm production and Denies dyspnea Gastrointestinal: Gastrointestinal: Denies abdominal pain, Denies hematochezia, Denies diarrhea and Denies vomiting Genitourinary: Genitourinary: Denies hematuria and Denies dysuria Musculoskeletal: Musculoskeletal: Denies joint swelling, Denies loss of height and Denies muscle weakness Neurologic: Denies syncope, Denies focal weakness and Denies weakness PMFSH Past Medical History Medical History Anxiety Surgical History Surgical History History of section Family History Family History Father Family history of diabetes mellitus in first degree relative Social History Social History Smoking status: Former smoker Second hand tobacco smoke exposure: No Smoking end date: 03/14/13 Alcohol intake: never Substance use type: does not use Gender identity (if verbalized by the patient): Female Exam Const: General: no acute distress and alert Nutritional Appearance: obese Orientation/consciousness: patient oriented x3 HENMT: Head: normal to inspection Ears: external ears normal and TM abnormal (right TM with serous effusion and tube in place, no erythema) Face/Nose/Sinus: Normal external nose present Face and sinus: normal facial exam and sinuses nontender Mouth: Yes lip normal and Yes moist mucous membranes Teeth and gingiva: abnormal tooth and associated gingiva (broken tooth 29, Ttp, no gum swelling) Throat: posterior oropharynx normal and uvula midline Eyes: EOM: EOMs intact bilaterally Neck: Neck: normal visual inspection Resp: Effort & Inspection: normal respiratory effort Skin: General skin exam: normal color Rashes: no rashes Wounds: no wounds Neuro: General: patient oriented x3, moves all extremities and CN's II-XI intact bilaterally Extrem: General: normal to inspection Psych: Mental Status: mental status grossly normal Affect: normal affect Course Reevaluation(s) Reevaluation #1: Patient request dose of ibuprofen and antibiotics in ER before discharge so those were ordered Date: 08/26/22 Time: 12:13 Vital Signs Vital signs: Vital Signs Temperature 97.9 F 08/26/22 10:22 Pulse Rate 85 08/26/22 10:22 Respiratory Rate 18 08/26/22 10:22 Blood Pressure 154/95 H 08/26/22 10:22 Pulse Oximetry 98 08/26/22 10:22 Oxygen Delivery Room Air 08/26/22 10:22 Temperature 97.9 F 08/26/22 10:22 Pulse Rate 85 08/26/22 10:22 Respi
[2022-08-26] MEDS: AMOXICILLIN/CLAVULANATE K 875-125 MG TAB 1 TABLET PO (11:40)
[2022-08-26] MEDS: IBUPROFEN 400 MG TABLET 800 MG PO (11:40)
== END 2022-08-26 12:33 | disposition home or self-care (01) ==
PROVIDERS: Emergency Provider General Practice
DX: K08.89 Other specified disorders of teeth and supporting structures (principal); Z87.891 Personal history of nicotine dependence
CPT/HCPCS: 99283; A9270

== ENCOUNTER 2022-11-08 18:27 | Emergency (ER) | payer OTHER, SELFPAY ==
--- NOTE | ~2022-11-08 | CT_ITS ---
CT of the Abdomen and Pelvis: Indication: Abdominal pain Technique: 2.5 mm axial scans were obtained through the abdomen and pelvis following intravenous adm inistration of 100 cc of Omnipaque 350. Dose reduction technique was used on this scan by utilizing a utomated exposure control and iterative reconstruction technique. The dose-length product (DLP) was 1 792.16 mGy-cm. COMPARISON: 05/14/2021 Findings: Scans through the lung bases are unremarkable. The liver, spleen, pancreas, gallbladder, adrenals and kidneys are within normal limits. No evidence of aortic aneurysm. No lymphadenopathy. No bowel obstruction or bowel wall thickening. There is no evidence to suggest acute appendicitis. Images through the pelvis were performed. Urinary bladder unremarkable. No pelvic mass seen. No ascit es. There are bilateral L5 pars interarticularis defects, without subluxation. Impression: No acute abnormalities seen. Bilateral L5 pars interarticularis defects, without subluxation. Reviewed, dictated and finalized at [facility]. Impression: No acute abnormalities seen. Bilateral L5 pars interarticularis defects, without subluxation.
[2022-11-08 19:05] VITALS: BP 136/89; PULSE 89; RESP 18; TEMP 36.4; O2SAT 99
[2022-11-08 23:11] VITALS: BP 128/62; PULSE 78; RESP 13; TEMP 36.4; O2SAT 100
[2022-11-08 23:24] VITALS: PULSE 68; RESP 16; O2SAT 100
[2022-11-08 23:30] VITALS: PULSE 66; RESP 19; O2SAT 99
[2022-11-08 23:34] LABS: Appearance Urine Cloudy (Clear); Bacteria Urine None Seen /hpf; Bilirubin Urine Negative (Negative); Blood Urine Negative (Negative); Color Urine Yellow (Yellow); Glucose Urine UA Negative (Negative); Ketones Urine 1+ mg/dL (Negative); Leukocyte Esterase Ur Negative LEU/UL (Negative); Nitrate Urine Negative (Negative); Non Pathogenic Casts 0-2; Protein Urine Negative (Negative); RBC Urine 0-2 /hpf (0-2); Squamous Epithelial Cell Urine Few /hpf (Few); Urobilinogen Urine 0.2 mg/dL (<2.0); pH Urine 5.5 (5.0-9.0)
[2022-11-08 23:41] LABS: Basophils Percent Auto 0.3 % (0.2-1.2); Eosinophils Percent Auto 0.2 % (0-4.4); Hematocrit 32.4 % (37.0-47.0); Hemoglobin 9.6 g/dL (12.0-15.0); Immature Granulocyte Absolute 0.04 K/mm3 (0.00-0.031); Immature Granulocyte Percent A 0.4 % (0-0.5); Lymphocytes Absolute Auto 1.51 K/mm3 (0.9-3.2); Lymphocytes Percent Auto 14.3 % (18.3-44.2); Mean Corpuscular HGB Conc 29.6 g/dl (32-36); Mean Corpuscular Hemoglobin 22.5 pg (26-34); Mean Corpuscular Volume 75.9 fl (80-100); Mean Platelet Volume 9.4 fl (7.4-10.4); Monocytes Absolute Auto 0.3 K/mm3 (0.1-0.6); Monocytes Percent Auto 3.2 % (2.6-8.5); Neutrophils Absolute Auto 8.7 K/mm3 (1.3-6.7); Neutrophils Percent Auto 81.6 % (45.5-73.1); Platelet Count Result 448 k/mm3 (150-375); Red Blood Count 4.27 M/mm3 (4.2-5.4); Red Cell Distribution Width 17.8 % (11.5-14.5); White Blood Count 10.6 K/mm3 (4.5-10.0)
[2022-11-08 23:45] VITALS: PULSE 74; RESP 21; O2SAT 100
[2022-11-08 23:50] LABS: Add Urine Microscopic? YES
[2022-11-08 23:53] LABS: Alanine Aminotransferase 22 U/L (6-35); Albumin Level 4.6 g/dL (3.5-5.1); Alkaline Phosphatase 81 U/L (38-126); Anion Gap 12 mmol/L (8-16); Aspartate Amino Transferase 27 U/L (14-36); Bilirubin,Total 0.5 mg/dL (0.2-1.3); Blood Urea Nitrogen 11 mg/dL (7-17); Calcium 9.1 mg/dL (8.4-10.2); Carbon Dioxide 20 mmol/L (22-30); Chloride 105 mmol/L (98-107); Estimated CRCL calculation 170 ml/min; Estimated Glomerular Filt Rate > 60; Glucose 128 mg/dL (65-110); Hypochromasia 1+ (NORMAL); Lipase 69 U/L (23-300); Platelet Estimate Increased (Adequate); Potassium 4.1 mmol/L (3.4-5.0); Schistocytes None Seen (NORMAL); Sodium 137 mmol/L (137-145)
[2022-11-09] VITALS (24 sets, daily range): BP systolic 100–152; BP diastolic 43–104; PULSE 56–88; RESP 15–20; TEMP 36.8; O2SAT 95–100
--- NOTE | 2022-11-09 01:09 | ED.NAVMDI ---
HPI - Nausea/Vomiting/Diarrhea General Chief complaint: Nausea/Vomiting/Diarrhea Stated complaint: vomiting, lightheaded, dizzy Time Seen by Provider: 11/08/22 23:32 Source: patient Mode of arrival: ambulatory Limitations: no limitations History of Present Illness HPI Narrative: Patient is a 32-year-old female who presents to the ED with report of dizziness and nausea. Patient reports she became dizzy today while at work. Dizziness worse with movement. Described as though the room is spinning. She also feels somewhat lightheaded. She reports nausea and vomiting associated with the dizziness. She denies ever having dizziness like this before. She tried lying down after work today, but symptoms persisted. She also reports having a headache and upper abdominal pain from the vomiting. Denies diarrhea, constipation, fevers, vision changes, focal weakness or numbness. Denies cough or cold symptoms. Denies family members with similar symptoms. Related Data Allergies Allergy/AdvReac Type Severity Reaction Status Date / Time sulfamethoxazole AdvReac Mild Vomiting Verified 06/01/22 17:04 [From Bactrim] trimethoprim [From Bactrim] AdvReac Mild Vomiting Verified 06/01/22 17:04 Review of Systems Review of Systems: CONSTITUTIONAL: Denies fever, chills, or sweats. EYES: Denies visual changes. CARDIOVASCULAR: Denies chest pain. RESPIRATORY: Denies cough or dyspnea. GASTROINTESTINAL: See HPI. GENITOURINARY: Denies dysuria or hematuria. MUSCULOSKELETAL: Denies back pain, joint pain, or myalgia. NEUROLOGIC: See HPI. All systems reviewed & are unremarkable except as noted in HPI and below PMFSH Past Medical History Medical History Anxiety Surgical History Surgical History History of section Family History Family History Father Family history of diabetes mellitus in first degree relative Social History Social History Smoking status: Former smoker Second hand tobacco smoke exposure: No Smoking end date: 03/14/13 Alcohol intake: never Substance use type: does not use Gender identity (if verbalized by the patient): Female Exam Narrative: GENERAL: Well appearing, morbidly obese with BMI 51.7, non-toxic, in no acute distress. HEAD: Normocephalic, atraumatic. EYES: PERRLA/EOMI, conjunctiva clear. No significant nystagmus. ENT: Poor dentition. MMs slightly dry. NECK: Supple. No adenopathy, no masses. No meningeal signs. RESPIRATORY: Airway patent, respirations nonlabored. Clear to auscultation bilaterally, no rales, rhonchi, wheezing. CARDIOVASCULAR: Regular rate and rhythm without murmurs, rubs, or gallops. Radial pulses 2+ and equal bilaterally. ABDOMINAL: Soft, mild tenderness in epigastric region and left lower quadrant, nondistended, no hepatosplenomegaly. Normoactive BS. MUSCULOSKELETAL: Moves all extremities. Strength/ROM intact without gross deformities. SKIN: Warm, dry, normal color. No rashes. NEURO: A&O X3. Speech clear. Cranial nerves II-XII grossly intact. Steady gait. No ataxic movements. No focal neurologic deficits. Dizziness elicited with turning head left and right, sitting upright in ED bed. PSYCHIATRIC: Appropriate mood and affect. Normal interaction. Course Vital Signs Vital signs: Vital Signs Temperature 97.6 F 11/08/22 19:05 Pulse Rate 89 11/08/22 19:05 Respiratory Rate 18 11/08/22 19:05 Blood Pressure 136/89 11/08/22 19:05 Pulse Oximetry 99 11/08/22 19:05 Oxygen Delivery Room Air 11/08/22 19:05 Temperature 97.6 F 11/08/22 23:11 Pulse Rate 66 11/09/22 00:39 Respiratory Rate 20 11/09/22 00:39 Blood Pressure 116/69 11/09/22 00:39 Pulse Oximetry 100 11/09/22 00:39 Oxygen Delivery Room Air
[2022-11-09] MEDS: ONDANSETRON INJ 4 MG/2 ML VIAL IV PUSH (01:39)
[2022-11-09] MEDS: SODIUM CHLORIDE 0.9% IV 1,000 ML 999 ML IV CONT (01:39)
[2022-11-09] MEDS: MECLIZINE HCL 25 MG TABLET PO (01:40)
== END 2022-11-09 04:39 | disposition home or self-care (01) ==
PROVIDERS: Emergency Medicine; Emergency Provider Physician Assistant
DX: R42 Dizziness and giddiness (principal); R11.2 Nausea with vomiting, unspecified; D64.9 Anemia, unspecified; F41.9 Anxiety disorder, unspecified
CPT/HCPCS: 36415; 74177; 80053; 81001; 81025; 83690; 85025; 87086; 87088; 96361; 96374; 99284; A9270; J2405; J7030; Q9967

== ENCOUNTER 2022-11-10 12:01 | Emergency (ER) | payer OTHER, SELFPAY ==
[2022-11-10] VITALS (9 sets, daily range): BP systolic 121–144; BP diastolic 72–76; PULSE 60–74; RESP 13–21; TEMP 36.9; O2SAT 100
--- NOTE | ~2022-11-10 | XR_ITS ---
Portable chest x-ray Comparison: 01/08/2021 Clinical History: Dizziness, headache Findings: Lungs are clear, without focal consolidation or pleural effusion. Cardiomediastinal silho uette is stable. Bones and soft tissues are unremarkable. Impression: Normal chest Reviewed, dictated and finalized at [facility]. Impression: Normal chest
--- NOTE | ~2022-11-10 | CT_ITS ---
EXAMINATION: CT brain wo con DATE: 11/10/2022 13:10 INDICATION: Headache and dizziness TECHNIQUE: Computed tomography (CT) of the head was performed without intravenous contrast. Sagittal and coronal reconstructions were performed. The mA was adjusted according to patient size. Iterative reconstruction technique was employed. The dose-length product was 605.33 mGy-cm. COMPARISON: None FINDINGS: No acute intracranial hemorrhage, acute infarction or abnormal extra axial fluid collection. Ventricl es are normal and symmetric. No mass/mass effect. Small left and trace right mastoid effusion. Bilate ral middle ear cavities are clear. Mild mucosal thickening in the right maxillary and bilateral ethmo id sinuses. The orbits are normal. IMPRESSION: 1. Normal brain. No acute intracranial process. Reviewed, dictated and finalized at location A.
--- NOTE | 2022-11-10 12:28 | ED.DIZZY ---
HPI - Dizziness General Chief Complaint: Dizziness Stated Complaint: dizzy/n/v/esparza Time Seen by Provider: 11/10/22 12:19 Source: patient Mode of arrival: ambulatory Limitations: no limitations History of Present Illness HPI Narrative: 32 years old white female who came to the emergency room by private car complaining of lightheadedness, dizziness, nausea and vomiting. This does get worse with any head or body movement. Currently complaining of frontal throbbing headache. The symptoms started 4 days ago. Was seen in our emergency room 4 days ago. And was discharged with vertigo. On Zofran and meclizine. Patient reported no new changes today compared to 4 days ago, unable to work because any movement can trigger the spinning and lightheadedness. Patient reports a lot of stress lately, lives with her sister, does not have a place to go. She denies any fever, chills, chest pain, shortness of breath, vision abnormality, abdominal pain, or back pain. Related Data Allergies Allergy/AdvReac Type Severity Reaction Status Date / Time sulfamethoxazole AdvReac Mild Vomiting Verified 11/10/22 12:06 [From Bactrim] trimethoprim [From Bactrim] AdvReac Mild Vomiting Verified 11/10/22 12:06 Review of Systems Review of Systems: All systems reviewed & are unremarkable except as noted in HPI and below PMFSH Past Medical History Medical History Anxiety Surgical History Surgical History History of section Family History Family History Father Family history of diabetes mellitus in first degree relative Social History Social History Smoking status: Former smoker Second hand tobacco smoke exposure: No Smoking end date: 03/14/13 Alcohol intake: never Substance use type: does not use Gender identity (if verbalized by the patient): Female Exam Narrative: General appearance: Well-developed, well-nourished Skin: Normal color Head: Normocephalic, nontraumatic Eyes: Clear conjunctiva ENT: Oropharynx normal, ears normal, nose normal Neck: Supple, nontender Chest and respiratory: Airway patent, no respiratory distress, no accessory muscle use Heart: Regular rate/rhythm Abdomen: Soft, nontender, no organomegaly, quiet bowel sounds Vascular: Normal peripheral pulses, normal capillary refill. Musculoskeletal: Normal range of motion, nontender back Neurologic: Alert and oriented ?3, PATIENT FINANCIAL REPRESENTATIVE is normal as tested, no gross motor deficit patient develops dizziness with any head or body movement during examination. Which resolves in 30 seconds. Course Vital Signs Vital signs: Vital Signs Temperature 36.9 C 11/10/22 12:03 Pulse Rate 74 11/10/22 12:03 Respiratory Rate 16 11/10/22 12:03 Blood Pressure 144/74 H 11/10/22 12:03 Pulse Oximetry 100 11/10/22 12:03 Temperature 36.9 C 11/10/22 12:03 Pulse Rate 74 11/10/22 12:03 Respiratory Rate 16 11/10/22 12:03 Blood Pressure 144/74 H 11/10/22 12:03 Pulse Oximetry 100 11/10/22 12:03 MDM - Dizziness MDM Narrative Medical decision making narrative: 32 years old white female presented to the ED with dizziness, everything is stands with head or body movement. Patient came to our emergency room 4 days ago for the same symptoms. Physical examination was unremarkable except for dizzy spells with head or body movement during examination. Work-up today include CBC, CMP, chest x-ray, CT scan of the head showed no acute abnormality. In the ED patient received 25 mg
--- NOTE | 2022-11-10 12:29 | ECG_ITS ---
Measurements Intervals [place] Rate: 68 P: 26 NH: 170 QRS: 52 QRSD: 98 T: 44 QT: 406 QTc: 435 Interpretive Statements SINUS RHYTHM POSSIBLE ANTERIOR MYOCARDIAL INFARCTION , OF INDETERMINATE AGE [30 ms Q WAVE IN V3/V4, OR R < 0.2 mV IN V4] ABNORMAL ECG COMPARED TO ECG 05/14/2021 10:26:50 NO SIGNIFICANT CHANGES Electronically Signed On 11-10-2022 14:01:44 CDT by Robert Navarro M.D.
[2022-11-10 13:04] LABS: Alanine Aminotransferase 18 U/L (6-35); Albumin Level 4.2 g/dL (3.5-5.1); Alkaline Phosphatase 60 U/L (38-126); Anion Gap 9 mmol/L (8-16); Aspartate Amino Transferase 30 U/L (14-36); Bilirubin,Total 0.6 mg/dL (0.2-1.3); Blood Urea Nitrogen 10 mg/dL (7-17); Calcium 8.6 mg/dL (8.4-10.2); Carbon Dioxide 19 mmol/L (22-30); Chloride 107 mmol/L (98-107); Estimated CRCL calculation 196 ml/min; Estimated Glomerular Filt Rate > 60; Glucose 87 mg/dL (65-110); Potassium 4.1 mmol/L (3.4-5.0); Sodium 135 mmol/L (137-145)
[2022-11-10 13:08] LABS: Basophils Percent Auto 0.4 % (0.2-1.2); Eosinophils Absolute Auto 0.1 K/mm3 (0-0.3); Eosinophils Percent Auto 1.6 % (0-4.4); Hematocrit 31.8 % (37.0-47.0); Hemoglobin 9.2 g/dL (12.0-15.0); Immature Granulocyte Absolute 0.02 K/mm3 (0.00-0.031); Immature Granulocyte Percent A 0.3 % (0-0.5); Lymphocytes Absolute Auto 1.98 K/mm3 (0.9-3.2); Lymphocytes Percent Auto 25.6 % (18.3-44.2); Mean Corpuscular HGB Conc 28.9 g/dl (32-36); Mean Corpuscular Hemoglobin 22.1 pg (26-34); Mean Corpuscular Volume 76.3 fl (80-100); Mean Platelet Volume 9.3 fl (7.4-10.4); Monocytes Absolute Auto 0.4 K/mm3 (0.1-0.6); Monocytes Percent Auto 5.4 % (2.6-8.5); Neutrophils Absolute Auto 5.2 K/mm3 (1.3-6.7); Neutrophils Percent Auto 66.7 % (45.5-73.1); Platelet Count Result 379 k/mm3 (150-375); Red Blood Count 4.17 M/mm3 (4.2-5.4); Red Cell Distribution Width 17.9 % (11.5-14.5); White Blood Count 7.7 K/mm3 (4.5-10.0)
[2022-11-10] MEDS: ONDANSETRON INJ 4 MG/2 ML VIAL 8 MG IV PUSH (13:14)
[2022-11-10] MEDS: SODIUM CHLORIDE 0.9% IV 1,000 ML 999 ML IV CONT (13:14)
[2022-11-10] MEDS: MECLIZINE HCL 25 MG TABLET PO (13:14)
[2022-11-10] MEDS: diazePAM (*CRX) 5 MG TABLET PO (13:14)
[2022-11-10] MEDS: KETOROLAC 30 MG/ML VIAL (*BKC) IV PUSH (13:14)
[2022-11-10 13:23] LABS: Hypochromasia 1+ (NORMAL); Schistocytes None Seen (NORMAL)
[2022-11-10 14:43] LABS: Appearance Urine Cloudy (Clear); Bacteria Urine Rare /hpf; Bilirubin Urine Negative (Negative); Blood Urine Negative (Negative); Color Urine Dark Yellow (Yellow); Glucose Urine UA Negative (Negative); Ketones Urine 1+ mg/dL (Negative); Leukocyte Esterase Ur Trace LEU/UL (Negative); Nitrate Urine Negative (Negative); Non Pathogenic Casts 0-2; Protein Urine Trace mg/dL (Negative); RBC Urine 0-2 /hpf (0-2); Specific Grav Ur 1.028 (1.001-1.035); Squamous Epithelial Cell Urine Few /hpf (Few); WBC Urine 0-5 /hpf; pH Urine 5.5 (5.0-9.0)
[2022-11-10 14:56] LABS: Amphetamine Screen Urine Negative (Negative); Barbiturate Screen Urine Negative (Negative); Benzodiazepines Screen Urine Negative (Negative); Cannabinoid Screen Urine Negative (Negative); Cocaine Screen Urine Negative (Negative); Methadone Screen Urine Negative (Negative); Opiate Screen Urine Negative (Negative); Phencyclidine Screen Urine Negative (Negative)
[2022-11-10 15:00] LABS: Add Urine Microscopic? YES
== END 2022-11-10 15:08 | disposition home or self-care (01) ==
PROVIDERS: Emergency Provider Emergency Medicine
DX: H81.10 Benign paroxysmal vertigo, unspecified ear (principal); Z87.891 Personal history of nicotine dependence
CPT/HCPCS: 36415; 70450; 71045; 80053; 80307; 81001; 81025; 85025; 93005; 96361; 96374; 96375; 99284; A9270; J1885; J2405; J7030

== ENCOUNTER 2023-07-16 10:24 | Emergency (ER) | payer OTHER, SELFPAY ==
--- NOTE | ~2023-07-16 | CT_ITS ---
EXAMINATION: CT abdomen pelvis w con DATE: 07/16/2023 12:21 INDICATION: Abdominal pain and vomiting TECHNIQUE: Computed tomography (CT) of the abdomen and pelvis was performed with 100 mL Omnipaque-350 intravenous contrast. Automated exposure control and iterative reconstruction technique were employe d. The dose-length product was 1669.75 mGy-cm. COMPARISON: 11/09/2022 FINDINGS: Lung bases are clear. Heart size is normal. No pericardial or pleural effusion. Liver, gallbladder, p ancreas, bilateral adrenal glands and kidneys are normal. No significant change in mild splenomegaly measuring up to 14.6 cm in maximal length. Bowels including the appendix are normal. Bladder, antever prudence uterus and bilateral adnexa are unremarkable. No free intraperitoneal gas or fluid. No pathologic ally enlarged abdominal or pelvic lymphadenopathy. With bilateral L5 pars interarticularis defects. M oderate disc height loss at L5-S1 with degenerative endplate changes at S1. Moderate lower thoracic s pondylosis. IMPRESSION: 1. No acute intra-abdominal/pelvic process. 2. Unchanged mild splenomegaly. 3. Bilateral L5 pars intra-articular is defects Reviewed, dictated and finalized at location A.
[2023-07-16 10:26] VITALS: BP 175/83; PULSE 88; RESP 18; TEMP 36.6; O2SAT 99
[2023-07-16 10:58] LABS: Basophils Percent Auto 0.4 % (0.2-1.2); Eosinophils Absolute Auto 0.3 K/mm3 (0-0.3); Eosinophils Percent Auto 3.5 % (0-4.4); Hematocrit 35.4 % (37.0-47.0); Hemoglobin 10.8 g/dL (12.0-15.0); Immature Granulocyte Absolute 0.01 K/mm3 (0.00-0.031); Immature Granulocyte Percent A 0.1 % (0-0.5); Lymphocytes Absolute Auto 2.21 K/mm3 (0.9-3.2); Lymphocytes Percent Auto 28.3 % (18.3-44.2); Mean Corpuscular HGB Conc 30.5 g/dl (32-36); Mean Corpuscular Hemoglobin 23.6 pg (26-34); Mean Corpuscular Volume 77.5 fl (80-100); Mean Platelet Volume 9.8 fl (7.4-10.4); Monocytes Absolute Auto 0.5 K/mm3 (0.1-0.6); Neutrophils Absolute Auto 4.8 K/mm3 (1.3-6.7); Neutrophils Percent Auto 61.7 % (45.5-73.1); Platelet Count Result 395 k/mm3 (150-375); Red Blood Count 4.57 M/mm3 (4.2-5.4); Red Cell Distribution Width 18.4 % (11.5-14.5); White Blood Count 7.8 K/mm3 (4.5-10.0)
[2023-07-16 11:04] LABS: Bacteria Urine 1+ /hpf; Non Pathogenic Casts 0-2; RBC Urine >100 /hpf (0-2); Squamous Epithelial Cell Urine Few /hpf (Few)
[2023-07-16 11:10] LABS: Appearance Urine Turbid (Clear); Bilirubin Urine 1+ (Negative); Blood Urine 3+ (Negative); Color Urine Orange (Yellow); Glucose Urine UA Negative (Negative); Ketones Urine Trace mg/dL (Negative); Leukocyte Esterase Ur 1+ LEU/UL (Negative); Nitrate Urine Negative (Negative); Protein Urine 2+ mg/dL (Negative); Specific Grav Ur 1.028 (1.001-1.035)
--- NOTE | 2023-07-16 11:10 | ED.NAVMDI ---
HPI - Nausea/Vomiting/Diarrhea General Chief complaint: Nausea/Vomiting/Diarrhea Stated complaint: vomiting Time Seen by Provider: 07/16/23 10:38 Source: patient Mode of arrival: ambulatory Limitations: no limitations History of Present Illness HPI Narrative: This is a 33-year-old female that presents to the emergency department for nausea and vomiting. Ongoing since yesterday. Associated with epigastric pain. Reports she has not been able to keep anything down. Every time she eats she experiences discomfort and then vomits. Denies fever, dysuria, or diarrhea. Related Data Allergies Allergy/AdvReac Type Severity Reaction Status Date / Time sulfamethoxazole AdvReac Mild Vomiting Verified 07/16/23 11:59 [From Bactrim] trimethoprim [From Bactrim] AdvReac Mild Vomiting Verified 07/16/23 11:59 Review of Systems Review of Systems: CONSTITUTIONAL: Denies fever GASTROINTESTINAL: Reports abdominal pain, nausea, vomiting. Denies diarrhea. GENITOURINARY: Denies dysuria or hematuria. All systems reviewed & are unremarkable except as noted in HPI and below PMFSH Past Medical History Medical History Anxiety Surgical History Surgical History History of section Family History Family History Father Family history of diabetes mellitus in first degree relative Social History Social History Smoking status: Former smoker Second hand tobacco smoke exposure: No Smoking end date: 03/14/13 Alcohol intake: never Substance use type: does not use Gender identity (if verbalized by the patient): Female Exam Narrative: GENERAL: Well-appearing, well-nourished, and in no acute distress. HEAD: Normocephalic, atraumatic. EYES: EOMI. CHEST: Clear to auscultation. No respiratory distress. No wheezes rales or rhonchi HEART: Regular rate and rhythm. No murmur heard. Normal peripheral pulses. ABDOMEN: Soft, nondistended, normal active bowel sounds. Tender to palpation in the epigastrium, without guarding EXTREMITIES: Normal range of motion. No edema. SKIN: Warm, dry, no rash. NEURO: No focal deficits. Alert and oriented x3. PSYCH: Normal mood and affect Course Course Emergency Course: Patient updated on her workup. Resting comfortably Vital Signs Vital signs: Vital Signs Temperature 97.8 F 07/16/23 10:26 Pulse Rate 88 07/16/23 10:26 Respiratory Rate 18 07/16/23 10:26 Blood Pressure 175/83 H 07/16/23 10:26 Pulse Oximetry 99 07/16/23 10:26 Oxygen Delivery Room Air 07/16/23 10:26 Temperature 97.8 F 07/16/23 10:26 Pulse Rate 72 07/16/23 11:31 Respiratory Rate 14 07/16/23 11:31 Blood Pressure 149/71 H 07/16/23 11:31 Pulse Oximetry 97 07/16/23 11:31 Oxygen Delivery Room Air 07/16/23 10:26 MDM - Nausea/Vomiting/Diarrhea MDM Narrative Medical decision making narrative: Patient presents to the emergency department for epigastric abdominal discomfort, nausea vomiting. Ongoing since yesterday. Patient is afebrile and nontoxic appearing. Initially hypertensive, this down trended with treatment of her pain. Cbc without leukocytosis. Metabolic panel and lipase without concerning findings. UA with 6-10 white blood cells and greater than 100 red blood cells, patient is currently on her menstrual cycle. Her test is negative. She is not having any urinary symptoms. CT abdomen and pelvis is without acute findings. Patient updated on her workup. Resting comfortably. She is to follow up with PCP. She was given warnings to return to the ER Differential Diagnosis Differential diagnosis: Likely food poisoning, gastroenteritis, dehydration and other (Biliary colic, SBO) Lab Data Attestation: I reviewed the patient's lab results. 07/16/23 10:40
[2023-07-16 11:12] LABS: Add Urine Microscopic? YES; Alanine Aminotransferase 14 U/L (6-35); Albumin Level 4.3 g/dL (3.5-5.1); Alkaline Phosphatase 75 U/L (38-126); Anion Gap 10 mmol/L (4-12); Aspartate Amino Transferase 22 U/L (14-36); Bilirubin,Total 0.5 mg/dL (0.2-1.3); Blood Urea Nitrogen 10 mg/dL (7-17); Calcium 9.6 mg/dL (8.4-10.2); Carbon Dioxide 21 mmol/L (22-30); Chloride 110 mmol/L (98-107); Estimated CRCL calculation 196 ml/min; Estimated Glomerular Filt Rate > 60; Glucose 91 mg/dL (65-110); Lipase 90 U/L (23-300); Potassium 4.4 mmol/L (3.4-5.0); Sodium 141 mmol/L (137-145)
[2023-07-16] MEDS: SODIUM CHLORIDE 0.9% IV 1,000 ML 999 ML IV CONT (11:29)
[2023-07-16] MEDS: PANTOPRAZOLE SODIUM IV 40 MG VIAL IV PUSH (11:30)
[2023-07-16] MEDS: ONDANSETRON INJ 4 MG/2 ML VIAL IV PUSH (11:30)
[2023-07-16 11:31] VITALS: BP 149/71; PULSE 72; RESP 14; O2SAT 97
[2023-07-16 13:00] VITALS: BP 145/87; PULSE 70; RESP 14; O2SAT 99
[2023-07-16 14:55] VITALS: BP 151/82; PULSE 71; RESP 19; O2SAT 100
== END 2023-07-16 15:05 | disposition home or self-care (01) ==
PROVIDERS: Emergency Medicine; Emergency Provider Physician Assistant
DX: R10.13 Epigastric pain (principal); Z87.891 Personal history of nicotine dependence; R16.1 Splenomegaly, not elsewhere classified
CPT/HCPCS: 36415; 74177; 80053; 81001; 81025; 83690; 85025; 87086; 87088; 96361; 96374; 96375; 99284; C9113; J2405; J7030; Q9967

== ENCOUNTER 2023-09-02 11:42 | Emergency (ER) | payer OTHER, SELFPAY ==
[2023-09-02 11:44] VITALS: BP 140/97; PULSE 74; RESP 16; TEMP 36.6; O2SAT 100
--- NOTE | 2023-09-02 13:20 | ED.GENADULT ---
[facility] - General Adult General Chief complaint: Neck Pain/Injury Stated complaint: neck pain Time Seen by Provider: 09/02/23 12:52 Source: patient Mode of arrival: ambulatory Limitations: no limitations History of Present Illness HPI narrative: This is a 33-year-old female who presents to the ED with chief complaint of left-sided neck pain x2 days. Patient reports that the pain radiates down the left arm into the fingers. Reports certain movements make the pain worse. 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 She does this daily and does note that she carries heavy things sometimes. No specific injury that she can recall. Denies numbness, weakness or dropping any items. Denies chest pain, shortness of breath, back pain, fevers, chills. No IV drug use Related Data Allergies Allergy/AdvReac Type Severity Reaction Status Date / Time sulfamethoxazole AdvReac Mild Vomiting Verified 09/02/23 11:47 [From Bactrim] trimethoprim [From Bactrim] AdvReac Mild Vomiting Verified 09/02/23 11:47 Review of Systems Review of Systems: All systems as dictated in [facility] Past Medical History Medical History Anxiety Surgical History Surgical History History of section Family History Family History Father Family history of diabetes mellitus in first degree relative Social History Social History Smoking status: Former smoker Second hand tobacco smoke exposure: No Smoking end date: 03/14/13 Alcohol intake: never Substance use type: does not use Gender identity (if verbalized by the patient): Female Exam Narrative: GENERAL: Well-appearing, well-nourished, and in no acute distress. HEAD: Normocephalic, atraumatic. EYES: PERRLA and EOMI. ENT: Nares clear, no rhinorrhea or epistaxis. Mucous membranes moist. Oropharynx without tonsillar hypertrophy exudate or other lesions. NECK: Supple. No adenopathy or masses. CHEST: No respiratory distress. Clear to auscultation. No wheezes rales or rhonchi HEART: Regular rate and rhythm. No murmur heard. Normal peripheral pulses. ABDOMEN: Soft, nontender, nondistended, normal active bowel sounds. MSK: No midline spinal tenderness throughout. Reproducible neck pain with range of motion in all directions of the cervical spine. 5/5 strength and sensation in the upper extremities. SKIN: Warm, dry, no rash. NEURO: Alert and oriented x4. No focal deficits. PSYCH: Normal mood and affect. Course Vital Signs Vital signs: Vital Signs Temperature 97.8 F 09/02/23 11:44 Pulse Rate 74 09/02/23 11:44 Respiratory Rate 16 09/02/23 11:44 Blood Pressure 140/97 H 09/02/23 11:44 Pulse Oximetry 100 09/02/23 11:44 Temperature 97.8 F 09/02/23 11:44 Pulse Rate 74 09/02/23 11:44 Respiratory Rate 16 09/02/23 11:44 Blood Pressure 140/97 H 09/02/23 11:44 Pulse Oximetry 100 09/02/23 11:44 Medical Decision Making MDM Narrative Medical decision making narrative: This is a 33-year-old female who presents to the ED with chief complaint of left-sided neck pain for the past few days. Pain is radiating into the left upper extremity. Vitals are normal. Exam shows reproducible neck pain. Neurologically she is fully intact. No deficits. Symptoms and presentation most likely consistent with cervical radiculopathy. Shared decision making to avoid CT scan at this time. She has no other red flag signs for back or neck pain. Muscle relaxer, Medrol Dosepak prescribed. She was given Toradol IM here. Pt will be discharged in stable condition. Return precautions given and supportive measures discussed. Pt is understanding and agreeable with plan for discharge and follow-up with PCP. Vital Signs Vital Signs: Vital Signs
[2023-09-02] MEDS: KETOROLAC 30 MG/ML VIAL (*BKC) IM (13:29)
== END 2023-09-02 13:36 | disposition home or self-care (01) ==
LOC: ANHED 13:34
PROVIDERS: Emergency Provider Physician Assistant
DX: M54.12 Radiculopathy, cervical region (principal); F41.9 Anxiety disorder, unspecified; Z87.891 Personal history of nicotine dependence; Z79.899 Other long term (current) drug therapy
CPT/HCPCS: 96372; 99283; J1885

== ENCOUNTER 2023-09-27 21:02 | Emergency (ER) | payer OTHER, SELFPAY ==
--- NOTE | ~2023-09-27 | XR_ITS ---
Left ankle Technique: AP, oblique, and lateral views were obtained. Clinical History: Pain Findings: No acute fracture or dislocation is seen. Osseous alignment is anatomic. Ankle mortise and other visualized joint spaces are preserved. Soft tissues are otherwise unremarkable. Impression: Unremarkable left ankle. Reviewed, dictated and finalized at location . Impression: Unremarkable left ankle.
--- NOTE | ~2023-09-27 | XR_ITS ---
Left Knee Technique: AP, lateral, and sunrise views were obtained. Clinical History: Pain Findings: No fracture or dislocation is seen. Osseous alignment is anatomic. There is mild tricompart mental degenerative spurring. Soft tissues are unremarkable. No joint effusion is seen. Impression: Mild tricompartment degenerative spurring. Reviewed, dictated and finalized at location . Impression: Mild tricompartment degenerative spurring.
--- NOTE | ~2023-09-27 | US_ITS ---
EXAMINATION:US venous doppler LE LT INDICATION:Left leg swelling TECHNIQUE: Multiple grayscale, color flow and Doppler images of the left lower extremity deep venous systems were obtained and reviewed. COMPARISON:12/22/2021 FINDINGS: The common femoral, profunda femoral and popliteal veins demonstrate normal respiratory manoj iation, augmentation and compressibility. There is deep venous thrombosis of the left femoral vein. C olor flow is also seen within the posterior tibial, peroneal, greater saphenous and profunda veins. IMPRESSION: 1: Deep venous thrombosis of the left femoral vein. Reviewed, dictated and finalized at location B.
[2023-09-27 21:06] VITALS: BP 140/81; PULSE 87; RESP 15; TEMP 36.1; O2SAT 100
[2023-09-28] MEDS: KETOROLAC 30 MG/ML VIAL (*BKC) IM (03:17)
[2023-09-28 03:36] LABS: Basophils Percent Auto 0.3 % (0.2-1.2); Eosinophils Absolute Auto 0.3 K/mm3 (0-0.3); Eosinophils Percent Auto 2.8 % (0-4.4); Hematocrit 33.6 % (37.0-47.0); Hemoglobin 10.3 g/dL (12.0-15.0); Immature Granulocyte Absolute 0.02 K/mm3 (0.00-0.031); Immature Granulocyte Percent A 0.2 % (0-0.5); Lymphocytes Percent Auto 32.2 % (18.3-44.2); Mean Corpuscular HGB Conc 30.7 g/dl (32-36); Mean Corpuscular Hemoglobin 23.7 pg (26-34); Mean Corpuscular Volume 77.4 fl (80-100); Mean Platelet Volume 9.6 fl (7.4-10.4); Monocytes Absolute Auto 0.6 K/mm3 (0.1-0.6); Monocytes Percent Auto 6.1 % (2.6-8.5); Neutrophils Absolute Auto 5.6 K/mm3 (1.3-6.7); Neutrophils Percent Auto 58.4 % (45.5-73.1); Platelet Count Result 369 k/mm3 (150-375); Red Blood Count 4.34 M/mm3 (4.2-5.4); Red Cell Distribution Width 15.6 % (11.5-14.5); White Blood Count 9.6 K/mm3 (4.5-10.0)
[2023-09-28 03:48] LABS: Alanine Aminotransferase 11 U/L (6-35); Albumin Level 4.1 g/dL (3.5-5.1); Alkaline Phosphatase 74 U/L (38-126); Anion Gap 11 mmol/L (4-12); Aspartate Amino Transferase 19 U/L (14-36); Bilirubin,Total 0.6 mg/dL (0.2-1.3); Blood Urea Nitrogen 8 mg/dL (7-17); Calcium 8.7 mg/dL (8.4-10.2); Carbon Dioxide 22 mmol/L (22-30); Chloride 104 mmol/L (98-107); Estimated CRCL calculation 167 ml/min; Estimated Glomerular Filt Rate > 60; Glucose 95 mg/dL (65-110); Potassium 3.6 mmol/L (3.4-5.0); Sodium 137 mmol/L (137-145)
[2023-09-28 03:49] LABS: INR 1.1; Prothrombin Time 14.6 Seconds (11.1-14.7)
[2023-09-28 03:50] LABS: Partial Thromboplastin Time 24.7 Seconds (22.3-36.8)
[2023-09-28 03:57] LABS: NT Pro B Type Natriuretic Pept 35 pg/mL (19.9-100)
[2023-09-28 03:58] LABS: D Dimer 0.41 ug/mL (<0.48)
[2023-09-28 05:14] VITALS: BP 138/76; PULSE 80; RESP 16; O2SAT 100
--- NOTE | 2023-09-28 06:03 | ED.GENADULT ---
HPI - General Adult General Chief complaint: Extremity Injury, Lower <Jose Smith MD - Last Filed: 09/28/23 06:45> Stated complaint: L leg swelling <Jose Smith MD - Last Filed: 09/28/23 06:45> Time Seen by Provider: 09/28/23 02:25 <Jose Smith MD - Last Filed: 09/28/23 06:45> History of Present Illness HPI narrative: Patient 53-year-old female who presents emergency department chief complaint blood flu extremity pain. Patient reports she has pain in the left knee and left ankle the patient reports the symptoms are not improved by anything reports there were seen by Physical touch. Patient reports no prior injuries denies fever chills reports no injury or trauma the a UOM weakness <Jose Smith MD - Last Filed: 09/28/23 06:45> Related Data Allergies/adverse reactions: Allergies Allergy/AdvReac Type Severity Reaction Status Date / Time sulfamethoxazole AdvReac Mild Vomiting Verified 09/28/23 00:27 [From Bactrim] trimethoprim [From Bactrim] AdvReac Mild Vomiting Verified 09/28/23 00:27 <Jose Smith MD - Last Filed: 09/28/23 06:45> Review of Systems Review of Systems: A 10 system review of systems was completed on the patient and is negative except for what is stated in the HPI. Nursing and ancillary documentation was reviewed. <Jose Smith MD - Last Filed: 09/28/23 06:45> [facility] Past Medical History Medical History: Medical History Anxiety <Jose Smith MD - Last Filed: 09/28/23 06:45> Surgical History Surgical History: Surgical History History of section <Jose Smith MD - Last Filed: 09/28/23 06:45> Family History Family History: Family History Father Family history of diabetes mellitus in first degree relative <Jose Smith MD - Last Filed: 09/28/23 06:45> Social History Social History: Social History Smoking status: Former smoker Second hand tobacco smoke exposure: No Smoking end date: 03/14/13 Alcohol intake: never Substance use type: does not use Gender identity (if verbalized by the patient): Female <Jose Smith MD - Last Filed: 09/28/23 06:45> Exam Narrative: GENERAL: Well-appearing, well-nourished, and in no acute distress. HEAD: Normocephalic, atraumatic. EYES: PERRLA and EOMI. ENT: Nares clear, no rhinorrhea or epistaxis. Mucous membranes moist. NECK: Supple. CHEST: Clear to auscultation. No respiratory distress. HEART: Regular rate and rhythm. No murmur heard. Normal peripheral pulses. ABDOMEN: Soft, nontender, nondistended, normal active bowel sounds. EXTREMITIES: Normal range of motion. Trace edema. SKIN: Warm, dry, no rash. NEURO: No focal deficits. Alert and oriented x3. PSYCH: Normal mood and affect. <Jose Smith MD - Last Filed: 09/28/23 06:45> Course Course Emergency Course: [id number]: Patient signed out to me pending venous ultrasound. Patient's left femoral DVT. Patient placed on Eliquis and provided appropriate prescriptions. Discussed bleeding precautions and return precautions with the patient. Instructed follow-up with primary care physician in next 1-2 days. Patient requested a work note. <Manyn Nunez MD - Last Filed: 09/28/23 09:00> Vital Signs Vital signs: Vital Signs Temperature 97 F L 09/27/23 21:06 Pulse Rate 87 09/27/23 21:06 Respiratory Rate 15 09/27/23 21:06 Blood Pressure 140/81 09/27/23 21:06 Pulse Oximetry 100 09/27/23 21:06 Temperature 97 F L 09/27/23 21:06 Pulse Rate 65 09/28/23 08:42 Respiratory Rate 18 09/28/23 08:42 Blood Pressure 14
[2023-09-28 08:42] VITALS: BP 146/81; PULSE 65; RESP 18; O2SAT 97
[2023-09-28] MEDS: APIXABAN 5 MG TABLET 10 MG PO (09:32)
== END 2023-09-28 09:35 | disposition home or self-care (01) ==
PROVIDERS: Emergency Provider Emergency Medicine
DX: I82.412 Acute embolism and thrombosis of left femoral vein (principal); M79.605 Pain in left leg; F41.9 Anxiety disorder, unspecified
CPT/HCPCS: 36415; 73562; 73610; 80053; 83880; 85025; 85380; 85610; 85730; 93971; 96372; 99284; A9270; J1885

== ENCOUNTER 2023-10-04 10:15 | Emergency (ER) | payer OTHER, SELFPAY ==
[2023-10-04 10:25] VITALS: BP 125/78; PULSE 87; RESP 17; TEMP 36.7; O2SAT 96
[2023-10-04 10:49] LABS: Basophils Percent Auto 0.5 % (0.2-1.2); Eosinophils Absolute Auto 0.3 K/mm3 (0-0.3); Eosinophils Percent Auto 3.4 % (0-4.4); Hematocrit 34.5 % (37.0-47.0); Hemoglobin 10.4 g/dL (12.0-15.0); Immature Granulocyte Absolute 0.02 K/mm3 (0.00-0.031); Immature Granulocyte Percent A 0.2 % (0-0.5); Lymphocytes Absolute Auto 2.25 K/mm3 (0.9-3.2); Lymphocytes Percent Auto 27.5 % (18.3-44.2); Mean Corpuscular HGB Conc 30.1 g/dl (32-36); Mean Corpuscular Hemoglobin 23.7 pg (26-34); Mean Corpuscular Volume 78.8 fl (80-100); Mean Platelet Volume 9.8 fl (7.4-10.4); Monocytes Absolute Auto 0.4 K/mm3 (0.1-0.6); Monocytes Percent Auto 4.4 % (2.6-8.5); Neutrophils Absolute Auto 5.2 K/mm3 (1.3-6.7); Platelet Count Result 415 k/mm3 (150-375); Red Blood Count 4.38 M/mm3 (4.2-5.4); Red Cell Distribution Width 15.7 % (11.5-14.5); White Blood Count 8.2 K/mm3 (4.5-10.0)
[2023-10-04 10:58] LABS: Alanine Aminotransferase 13 U/L (6-35); Albumin Level 4.1 g/dL (3.5-5.1); Alkaline Phosphatase 75 U/L (38-126); Anion Gap 11 mmol/L (4-12); Aspartate Amino Transferase 16 U/L (14-36); Bilirubin,Total 0.3 mg/dL (0.2-1.3); Blood Urea Nitrogen 6 mg/dL (7-17); Calcium 8.6 mg/dL (8.4-10.2); Carbon Dioxide 22 mmol/L (22-30); Chloride 104 mmol/L (98-107); Estimated CRCL calculation 170 ml/min; Estimated Glomerular Filt Rate > 60; Glucose 97 mg/dL (65-110); Potassium 4.3 mmol/L (3.4-5.0); Sodium 137 mmol/L (137-145)
[2023-10-04 10:59] LABS: INR 1.3; Prothrombin Time 16.5 Seconds (11.1-14.7)
[2023-10-04 11:00] LABS: Partial Thromboplastin Time 28.8 Seconds (22.3-36.8)
[2023-10-04 11:39] VITALS: BP 131/57; PULSE 74; RESP 16; O2SAT 99
--- NOTE | 2023-10-04 11:59 | ED.FEMALEGU ---
HPI - Female Genitourinary General Chief complaint: Vaginal Bleeding Stated complaint: vaginal bleeding Time Seen by Provider: 10/04/23 11:33 Source: patient Mode of arrival: ambulatory Limitations: no limitations History of Present Illness HPI Narrative: Patient is a female who started having vaginal bleeding Tuesday night. At baseline she has heavy periods. She was due to start her menstrual period 10/05 so this is a few days early but her cycle is irregular at baseline, sometimes early and sometimes late. Recently started on Elliquis for a DVT in her left leg. Says she is soaking an overnight pad every hour and passing clots. She also reports having a boil on her vagina and thought this might be contributing. She is having abdominal and pelvic pain. Her PCP Berta Erickson handles her reproductive health care. Has been having dysuria and urinary urgency. Sexually active with men; 1 partner in the past 1 month; does not use condoms. No hair changes, weight changes, acne changes, or vision changes. Uncertain if temperature changes. She has had lower extremity edema but again, diagnosed with a DVT. No mucosal bleeding. No trauma/foreign body insertion. Believes diagnosed with the STI trichomonas at one point, treated. At baseline she has heavy periods and it is not unusual to pass clots. Related Data Allergies Allergy/AdvReac Type Severity Reaction Status Date / Time sulfamethoxazole AdvReac Mild Vomiting Verified 09/28/23 00:27 [From Bactrim] trimethoprim [From Bactrim] AdvReac Mild Vomiting Verified 09/28/23 00:27 [facility] Past Medical History Medical History (Updated 10/06/23 @ 09:32 by Olivia Fernandez MD) Anxiety History of miscarriage with twins Left leg DVT Menorrhagia with irregular cycle Surgical History Surgical History History of section Family History Family History Father Family history of diabetes mellitus in first degree relative Social History Social History Smoking status: Former smoker Second hand tobacco smoke exposure: No Smoking end date: 03/14/13 Alcohol intake: never Substance use type: does not use Gender identity (if verbalized by the patient): Female Exam Narrative: GENERAL: Well-appearing, well-nourished, and in no acute distress. HEAD: Normocephalic, atraumatic. EYES: Non injected, non icteric. No conjunctival pallor. ENT: Nares clear, no rhinorrhea or epistaxis. Poor dentition. NECK: Supple. CHEST: Speaking in full sentences. No respiratory distress. HEART: Regular rate and rhythm. . ABDOMEN: Soft, nondistended. Obese. Non tender to palpation. : Normal external genitalia without appreciable lesions. NOrmal vaginal vault. Some blood posterior to cervix. No cervical motion tenderness. No adnexal motion tenderness. No appreiable masses. No clots. EXTREMITIES: Normal range of motion. Left leg edema. SKIN: Warm, dry, no rash. NEURO: No focal deficits. Alert and oriented x3. PSYCH: Congruent mood and affect. Loquacious/verbose Course Vital Signs Vital signs: Vital Signs Temperature 98.1 F 10/04/23 10:25 Pulse Rate 87 10/04/23 10:25 Respiratory Rate 17 10/04/23 10:25 Blood Pressure 125/78 10/04/23 10:25 Pulse Oximetry 96 10/04/23 10:25 Oxygen Delivery Room Air 10/04/23 10:25 Temperature 98.1 F 10/04/23 10:25 Pulse Rate 65 10/04/23 14:20 Respiratory Rate 20 10/04/23 14:20 Blood Pressure 131/80 10/04/23 14:20 Pulse Oximetry 100 10/04/23 14:20 Oxygen Delivery Room Air 10/04/23 10:25 MDM - Female Genitourinary MDM Narrative Medical decision making narrative: Patient is a female who presents with vaginal bleeding since Tuesday which was a few days earlier than anticipated. She has baseline menorrhagia with
[2023-10-04 14:00] LABS: Trichomonas Vag PCR NOT DETECTED (NOT DETECTE)
[2023-10-04 14:02] LABS: SPREG INTERNAL CONTROL Positive; Serum Qual hCG Negative
[2023-10-04 14:20] VITALS: BP 131/80; PULSE 65; RESP 20; O2SAT 100
[2023-10-04 14:22] LABS: Appearance Urine Turbid (Clear); Bacteria Urine Rare /hpf; Bilirubin Urine 2+ (Negative); Blood Urine 2+ (Negative); Color Urine Red (Yellow); Glucose Urine UA Negative (Negative); Ketones Urine Negative (Negative); Leukocyte Esterase Ur 2+ LEU/UL (Negative); Need Manual Microscopic Reviewed; Nitrate Urine Positive (Negative); Non Pathogenic Casts 0-2; Protein Urine 2+ mg/dL (Negative); Squamous Epithelial Cell Urine None Seen /hpf (Few); Urobilinogen Urine 0.2 mg/dL (<2.0); WBC Urine 21-50 /hpf (0-3)
[2023-10-04 14:23] LABS: RBC Urine >100 /hpf (0-2)
[2023-10-04 14:23] LABS: Chlamydia trachomatis NOT DETECTED (NOT DETECTE); Neisseria gonorrhoeae PCR NOT DETECTED (NOT DETECTE)
[2023-10-04 14:24] LABS: Add Urine Microscopic? YES
[2023-10-04] MEDS: FERROUS SULFATE 325 MG TABLET DR PO (15:01)
[2023-10-04] MEDS: NITROFURANTOIN MONOHYD MACROCR 100 MG CAP PO (15:01)
== END 2023-10-04 15:07 | disposition home or self-care (01) ==
PROVIDERS: Emergency Provider Student in an Organized Health Care Education/Training Program; PCP Family Medicine
DX: N93.9 Abnormal uterine and vaginal bleeding, unspecified (principal); D64.9 Anemia, unspecified; D75.839 Thrombocytosis, unspecified; N39.0 Urinary tract infection, site not specified; Z79.01 Long term (current) use of anticoagulants; Z86.718 Personal history of other venous thrombosis and embolism; Z87.891 Personal history of nicotine dependence
CPT/HCPCS: 36415; 80053; 81001; 81025; 84443; 84703; 85025; 85610; 85730; 87086; 87088; 87491; 87591; 87661; 99284; A9270

== ENCOUNTER 2024-01-21 13:20 | Emergency (ER) | payer OTHER, SELFPAY ==
--- NOTE | ~2024-01-21 | XR_ITS ---
EXAM: XR knee RT min 4V, XR knee LT min 4V DATE: 01/21/2024 14:56 HISTORY: fall, pain . COMPARISON: None available. FINDINGS: Normal mineralization. No fracture or dislocation. No lytic or blastic lesion. Moderate tr icompartmental osteoarthritis Large volume left and small volume right joint effusions. No erosion or periosteal change. Soft tissues within normal limits. IMPRESSION: No acute osseous finding in the right or left knees. Reviewed, dictated and finalized at location K. CTOR PHONE IMPRESSION: No acute osseous finding in the right or left knees.
--- NOTE | ~2024-01-21 | US_ITS ---
EXAMINATION: US venous doppler LE DATE: 01/21/2024 14:46 INDICATION: pain, swelling, hx DVT . TECHNIQUE: Grayscale images without and with compression and Doppler images of the bilateral lower ex tremity veins were obtained. COMPARISON: 09/28/2023 FINDINGS: The right common femoral vein, profunda (deep) femoral vein, femoral vein, popliteal vein, peroneal v ein, posterior tibial veins, gastrocnemius vein, and greater saphenous vein are patent. Chronic left femoral vein thrombosis. The left common femoral vein, profunda (deep) femoral vein, po pliteal vein, peroneal vein, posterior tibial veins, gastrocnemius vein, and greater saphenous vein a re patent. IMPRESSION: Chronic left femoral vein thrombosis. No evidence of new acute deep venous thrombosis in either lower extremity. Reviewed, dictated and finalized at location K. NIZATIONAL DEVELOPMENT MANAGER IMPRESSION: Chronic left femoral vein thrombosis. No evidence of new acute deep venous thro mbosis in either lower extremity.
[2024-01-21 13:22] VITALS: BP 136/93; PULSE 80; RESP 18; TEMP 36.3; O2SAT 98
--- NOTE | 2024-01-21 14:18 | ED.LOWEXIN ---
HPI - Extremity Injury (Lower) General Chief Complaint: Extremity Injury, Lower Stated Complaint: swollen right leg/pain Time Seen by Provider: 01/21/24 14:10 Source: patient Mode of arrival: ambulatory Limitations: no limitations History of Present Illness HPI Narrative: This is a 33 year old female that presents to the ER for bilateral leg pain. Reports she tripped and fell yesterday. Reports injury to the bilateral knees, R>L). Reports swelling in her legs as well, (R>L). She has history of DVT in her left leg. Denies fever, erythema, decreased ROM or numbness. Related Data Allergies Allergy/AdvReac Type Severity Reaction Status Date / Time sulfamethoxazole AdvReac Mild Vomiting Verified 01/21/24 13:42 [From Bactrim] trimethoprim [From Bactrim] AdvReac Mild Vomiting Verified 01/21/24 13:42 Review of Systems Review of Systems: CONSTITUTIONAL: Denies fever SKIN: Denies rash MUSCULOSKELETAL: Reports joint pain, and myalgia. NEUROLOGIC: Denies numbness, or weakness. All systems reviewed & are unremarkable except as noted in HPI and below PMFSH Past Medical History Medical History (Updated 01/21/24 @ 15:37 by Anaya Zuniga PA-C) Anxiety History of miscarriage with twins Left leg DVT Menorrhagia with irregular cycle Surgical History Surgical History History of section Family History Family History Father Family history of diabetes mellitus in first degree relative Social History Social History Smoking status: Former smoker Second hand tobacco smoke exposure: No Smoking end date: 03/14/13 Alcohol intake: never Substance use type: does not use Gender identity (if verbalized by the patient): Female Exam Narrative: GENERAL: Well-appearing, well-nourished, and in no acute distress. HEAD: Normocephalic, atraumatic. EYES: EOMI. CHEST: No respiratory distress. HEART: Regular rate EXTREMITIES: Normal range of motion. Mild edema about the knees bilaterally. Normal DP pulses. Normal sensation. No erythema or warmth SKIN: Warm, dry, no rash. NEURO: No focal deficits. Alert and oriented x3. PSYCH: Normal mood and affect Course Course Emergency Course: Patient updated on her workup and agrees with plan of care Vital Signs Vital signs: Vital Signs Temperature 97.4 F L 01/21/24 13:22 Pulse Rate 80 01/21/24 13:22 Respiratory Rate 18 01/21/24 13:22 Blood Pressure 136/93 H 01/21/24 13:22 Pulse Oximetry 98 01/21/24 13:22 Temperature 97.4 F L 01/21/24 13:22 Pulse Rate 80 01/21/24 13:22 Respiratory Rate 18 01/21/24 13:22 Blood Pressure 136/93 H 01/21/24 13:22 Pulse Oximetry 98 01/21/24 13:22 MDM - Extremity Injury (Lower) MDM Narrative Medical decision making narrative: patient presents to emergency department after a fall yesterday with bilateral knee pain. X-rays are without acute osseous abnormalities. Patient also reporting swelling and concern for DVT. She has a chronic DVT in her left leg, no acute thrombosis. Patient updated on her workup and agrees with plan of care. Placed in Jesus wrap for comfort. She is to follow up with primary provider. She was given warnings to return to the ER Differential Diagnosis Differential diagnosis: Likely other (knee sprain, DVT, contusion) Lab Data Attestation: I reviewed the patient's lab results. 01/21/24 15:01 01/21/24 15:01 Labs: Lab Results 01/21/24 Range/Units 15:01 WBC 10.6 H (4.5-10.0) K/mm3 RBC 4.99 (4.2-5.4) M/mm3 Hgb 12.6 (12.0-15.0) g/dL Hct 40.4 (37.0-47.0) % MCV 81.0 (80-100) fl MCH 25.3 L (26-34) pg MCHC 31.2 L (32-36) g/dl RDW 20.9 H (11.5-14.5) % Plt Count 411 H (150-375) k/mm3 MPV 9.1 (7.4-10.4) fl Immature Gran % (Auto) 0.2 (0-0.5) % Neut % (Auto) 64.5 (45.5-73.1) % Lymph % (Auto) 27.2 (18.3-44.2) % [place] % (Auto) 5.0 (2.6-8.5) % Eos % (Auto) 2.8 (0-4.4) % Baso % (Auto) 0.3 (0.2-1.2) % Lymph # (Auto) 2.89 (0.9-3.2) K/mm3 [place] # (Auto) 0.5 (0.1-0.6) K/mm3 Eos # (Auto) 0.3 (0-0.3) K/mm3 Baso # (Auto) 0.0 (0.0-0.1) K/mm3 Abs Immat Gran (auto) 0.02 (0.00-0.031) K/mm3 Absolute Neuts (auto) 6.9 H (1.3-6.7) K/mm3 Absolute Nucleated RBC 0.000 (0.0-0.012) K/mm3 Nucleated RBC % 0.0 (0.0-0.2) % PT 14.3 (11.1-14.7) Seconds INR 1.1 APTT 27.8 (22.3-36.8) Seconds Sodium 135 L (137-145) mmol/L Potassium 4.6 (3.4-5.0) mmol/L Chloride 102 (98-107) mmol/L Carbon Dioxide 28 (22-30) mmol/L Anion Gap 5 (4-12) mmol/L BUN 8 (7-17) mg/dL Creatinine 0.70 (0.7-1.0) mg/dL Estim Creat Clear Calc 168 ml/min Estimated GFR > 60 (59 - ) Glucose 89 (65-110) mg/dL Calcium 9.1 (8.4-10.2) mg/dL Imaging Data Radiologist's impression: ITS Impressions Venous Doppler Study 01/21/24 14:54 IMPRESSION: Chronic left femoral vein thrombosis. No evidence of new acute deep venous thrombosis in either lower extremity. Knee X-Ray 01/21/24 15:04 IMPRESSION: No acute osseous finding in the right or left knees. Knee X-Ray 01/21/24 15:04 IMPRESSION: No acute osseous finding in the right or left knees. Critical Care Time Critical Care Time Critical Care Time: No Discharge Plan Discharge Clinical Impression: Knee sprain Qualifiers: Encounter type: initial encounter Involved ligament of knee: unspecified ligament Laterality: right Qualified Code(s): S83.91XA - Sprain of unspecified site of right knee, initial encounter Chronic deep vein thrombosis (DVT) Qualifiers: DVT location: lower extremity Affected thrombotic vein of extremity: femoral Laterality: left Qualified Code(s): I82.512 - Chronic embolism and thrombosis of left femoral vein Patient Disposition: Home, Self-Care Condition: Stable Instructions: Knee Sprain (ED) Additional Instructions: Return to the ER if you experience fever, redness and swelling of your extremity, numbness or any other symptoms that are concerning to you Wear JESUS wrap. Ice and elevate extremity. Pain medication as needed and directed. Follow up with your doctor for further care. Prescriptions: No Action diazepam [Valium] 5 mg tablet 5 mg PO TID PRN (Reason: anxiety) Qty: 15 0RF meclizine [Antivert] 25 mg tablet,chewable 25 mg PO TID Qty: 20 0RF methylprednisolone [Medrol ([place])] 4 mg tablets,dose pack See Rx Instructions .ROUTE .COMPLEX Qty: 21 0RF Rx Instructions: for 6 days cyclobenzaprine 10 mg tablet 10 mg PO HS PRN (Reason: muscle spasm) Qty: 10 0RF diclofenac potassium 50 mg tablet 50 mg PO TID PRN (Reason: pain) Qty: 21 0RF Eliquis DVT-PE Treat 30D Start 5 mg (74 tabs) tablets,dose pack See Rx Instructions .ROUTE .COMPLEX Qty: 74 0RF Rx Instructions: orally per package directions acetaminophen 500 mg capsule 1,000 mg PO Q6H PRN (Reason: pain) Qty: 20 0RF ferrous sulfate 325 mg (65 mg iron) tablet 325 mg PO EVERY OTHER DAY 30 Days Qty: 15 0RF nitrofurantoin monohyd/m-cryst [Macrobid] 100 mg capsule 100 mg PO Q12H 5 Days Qty: 10 0RF Rx Instructions: must administer with a meal/food amoxicillin-pot clavulanate 875-125 mg tablet 1 tablet PO Q12H Qty: 20 0RF ibuprofen 800 mg tablet 800 mg PO TID PRN (Reason: pain) Qty: 14 0RF meclizine 25 mg tablet 25 mg PO TID PRN (Reason: dizziness) Qty: 15 0RF ondansetron 4 mg tablet,disintegrating 4 mg PO Q8H PRN (Reason: nausea and vomiting) Qty: 15 0RF ondansetron 4 mg tablet,disintegrating 4 mg PO Q8H PRN (Reason: nausea and vomiting) Qty: 10 0RF Follow-up/Referrals: rBannon,Berta Wheeler MD [Primary Care Provider] -
[2024-01-21 15:07] LABS: Basophils Percent Auto 0.3 % (0.2-1.2); Eosinophils Absolute Auto 0.3 K/mm3 (0-0.3); Eosinophils Percent Auto 2.8 % (0-4.4); Hematocrit 40.4 % (37.0-47.0); Hemoglobin 12.6 g/dL (12.0-15.0); Immature Granulocyte Absolute 0.02 K/mm3 (0.00-0.031); Immature Granulocyte Percent A 0.2 % (0-0.5); Lymphocytes Absolute Auto 2.89 K/mm3 (0.9-3.2); Lymphocytes Percent Auto 27.2 % (18.3-44.2); Mean Corpuscular HGB Conc 31.2 g/dl (32-36); Mean Corpuscular Hemoglobin 25.3 pg (26-34); Mean Platelet Volume 9.1 fl (7.4-10.4); Monocytes Absolute Auto 0.5 K/mm3 (0.1-0.6); Neutrophils Absolute Auto 6.9 K/mm3 (1.3-6.7); Neutrophils Percent Auto 64.5 % (45.5-73.1); Platelet Count Result 411 k/mm3 (150-375); Red Blood Count 4.99 M/mm3 (4.2-5.4); Red Cell Distribution Width 20.9 % (11.5-14.5); White Blood Count 10.6 K/mm3 (4.5-10.0)
[2024-01-21 15:21] LABS: Anion Gap 5 mmol/L (4-12); Blood Urea Nitrogen 8 mg/dL (7-17); Calcium 9.1 mg/dL (8.4-10.2); Carbon Dioxide 28 mmol/L (22-30); Chloride 102 mmol/L (98-107); Estimated CRCL calculation 168 ml/min; Estimated Glomerular Filt Rate > 60; Glucose 89 mg/dL (65-110); Potassium 4.6 mmol/L (3.4-5.0); Sodium 135 mmol/L (137-145)
[2024-01-21 15:27] LABS: INR 1.1; Partial Thromboplastin Time 27.8 Seconds (22.3-36.8); Prothrombin Time 14.3 Seconds (11.1-14.7)
== END 2024-01-21 15:47 | disposition home or self-care (01) ==
PROVIDERS: Emergency Provider Physician Assistant; PCP Family Medicine
DX: S83.91XA Sprain of unspecified site of right knee, initial encounter (principal); I82.512 Chronic embolism and thrombosis of left femoral vein; Z79.01 Long term (current) use of anticoagulants; Z79.899 Other long term (current) drug therapy; W01.0XXA Fall on same level from slipping, tripping and stumbling without subsequent striking against object, initial encounter
CPT/HCPCS: 36415; 73564; 80048; 85025; 85610; 85730; 93970; 99284

== ENCOUNTER 2024-10-03 21:41 | Emergency (ER) | payer OTHER, SELFPAY ==
--- NOTE | ~2024-10-03 | XR_ITS ---
EXAMINATION: XR ankle LT min 3V, XR foot LT min 3V DATE: 10/03/2024 22:20 INDICATION: Diffuse left foot and ankle pain after being on feet all day TECHNIQUE: 1. Anteroposterior, mortise, additional oblique and lateral view of the left ankle were obtained. 2. Dorsoplantar, two oblique and lateral views of the left foot were obtained. COMPARISON: None. FINDINGS: Alignment of the foot and ankle is normal. No fracture or osteochondral lesion. Joint spaces are well maintained. Small Achilles calcaneal spur. Prominent os trigonum and small heterotopic ossicle along the dorsal neck of the talus. No ankle joint effusion. The soft tissues are unremarkable. IMPRESSION: 1. No acute osseous abnormality. Reviewed, dictated and finalized at location A. IMPRESSION: 1. No acute osseous abnormality.
[2024-10-03 21:41] VITALS: BP 139/87; PULSE 88; RESP 18; TEMP 35.8; O2SAT 94
--- NOTE | 2024-10-03 21:48 | ED.LOWEXIN ---
HPI - Extremity Injury (Lower) General Chief Complaint: Extremity Problem,Nontraumatic Stated Complaint: foot pain Time Seen by Provider: 10/03/24 21:48 Source: patient Mode of arrival: ambulatory Limitations: no limitations History of Present Illness HPI Narrative: 34-year-old female with a history of DVT in the left lower extremity, arthritis presents to the ED with one day history of -- left foot pain around the lateral malleolus. No history of trauma. Patient had a new job which involved prolonged standing. Patient is unable to bear weight. Onset (ago): day(s) ( 1 day) Injury: Left: ankle and foot Severity: severe Relieving factors: immobilization Exacerbating factors: weight bearing Other symptoms: none Related Data Allergies Allergy/AdvReac Type Severity Reaction Status Date / Time sulfamethoxazole (From AdvReac Mild Vomiting Verified 10/03/24 21:55 Bactrim) trimethoprim (From Bactrim) AdvReac Mild Vomiting Verified 10/03/24 21:55 Review of Systems Review of Systems: All systems reviewed & are unremarkable except as noted in HPI and below PMFSH Past Medical History Medical History History of miscarriage with twins Left leg DVT Menorrhagia with irregular cycle Anxiety Surgical History Surgical History History of section Family History Family History Father Family history of diabetes mellitus in first degree relative Social History Social History Smoking status: Former smoker Second hand tobacco smoke exposure: No Smoking end date: 03/14/13 Alcohol intake: never Substance use type: does not use Gender identity (if verbalized by the patient): Female Exam Narrative: vitals are stable. Const: General: no acute distress Nutritional Appearance: well nourished Orientation/consciousness: patient oriented x3 Limitations: no limitations HENMT: Head: normal to inspection Ears: external ears normal Face/Nose/Sinus: Normal external nose present Face and sinus: normal facial exam Mouth: Yes Normal oral and palatal mucosa present Throat: posterior oropharynx normal Eyes: Conjunctivae: conjunctivae normal Pupils: Equal, round and reactive pupils present EOM: EOMs intact bilaterally Direct Ophthalmoscopy: no photophobia Neck: Neck: normal visual inspection, no lymphadenopathy and no meningeal signs Chest: Chest palpation & inspection: normal inspection of the chest Resp: Effort & Inspection: normal respiratory effort Auscultation: clear to auscultation bilaterally Cardio: Rate: regular rate Rhythm: regular rhythm GI: GI Palp: Yes Soft to palpation Auscultation: normal bowel sounds Other: No tenderness/ rigidity /rebound. : General: Yes no CVA tenderness Back/Spine/Pelvis: Back: no CVA tenderness Cervical Spine: collar present Skin: General skin exam: normal color Rashes: no rashes Wounds: no wounds Neuro: General: patient oriented x3, moves all extremities, no meningeal signs and no focal motor deficits Extrem: General: normal to inspection Other: Left foot-- tenderness the lateral malleolus. Decreased range of motion the ankle joint. Left lower extremity is swollen which is chronic. History of left lower extremity DVT Psych: Mental Status: mental status grossly normal Affect: normal affect Attitude: cooperative Course Course Emergency Course: left ankle pain left foot pain x-ray of the foot and ankle did not show any acute findings. Vital Signs Vital signs: Vital Signs Temperature 35.8 C L 10/03/24 21:41 Pulse Rate 88 10/03/24 21:41 Respiratory Rate 18 10/03/24 21:41 Blood Pressure 139/87 10/03/24 21:41 Pulse Oximetry 94 10/03/24 21:41 Oxygen Delivery Room Air 10/03/24 21:41 Temperature 35.8 C L 10/03/24 21:41 Pulse Rate 88 10/03/24 21:41 Respiratory Rate 18 10/03/24 21:41 Blood Pressure 139/87 10/03/24 21:41 Pulse Oximetry 94 10/03/24 21:41 Oxygen Delivery Room Air 10/03/24 21:41 MDM - Extremity Injury (Lower) MDM Narrative Medical decision making narrative: Ankle pain foot pain Differential Diagnosis Differential diagnosis: Likely ankle sprain and strain Imaging Data My impression: x-ray of the left foot/ankle-- no fracture/ dislocation noted. Discharge Plan Discharge Clinical Impression: Ankle sprain Qualifiers: Encounter type: initial encounter Involved ligament of ankle: tibiofibular ligament Laterality: left Qualified Code(s): S93.432A - Sprain of tibiofibular ligament of left ankle, initial encounter Acute foot pain Qualifiers: Laterality: left Qualified Code(s): M79.672 - Pain in left foot Patient Disposition: Home Condition: Stable Instructions: Antibiotic Form, Ankle Sprain (ED) Patient Language: Guinean Prescriptions: New diclofenac sodium 50 mg tablet,delayed release (DR/EC) 50 mg PO Q12H PRN (Reason: pain) Qty: 20 0RF No Action diazepam [Valium] 5 mg tablet 5 mg PO TID PRN (Reason: anxiety) Qty: 15 0RF meclizine [Antivert] 25 mg tablet,chewable 25 mg PO TID Qty: 20 0RF methylprednisolone [Medrol ([place])] 4 mg tablets,dose pack See Rx Instructions .ROUTE .COMPLEX Qty: 21 0RF Rx Instructions: for 6 days cyclobenzaprine 10 mg tablet 10 mg PO HS PRN (Reason: muscle spasm) Qty: 10 0RF diclofenac potassium 50 mg tablet 50 mg PO TID PRN (Reason: pain) Qty: 21 0RF Eliquis DVT-PE Treat 30D Start 5 mg (74 tabs) tablets,dose pack See Rx Instructions .ROUTE .COMPLEX Qty: 74 0RF Rx Instructions: orally per package directions acetaminophen 500 mg capsule 1,000 mg PO Q6H PRN (Reason: pain) Qty: 20 0RF ferrous sulfate 325 mg (65 mg iron) tablet 325 mg PO EVERY OTHER DAY 30 Days Qty: 15 0RF nitrofurantoin monohyd/m-cryst [Macrobid] 100 mg capsule 100 mg PO Q12H 5 Days Qty: 10 0RF Rx Instructions: must administer with a meal/food amoxicillin-pot clavulanate 875-125 mg tablet 1 tablet PO Q12H Qty: 20 0RF ibuprofen 800 mg tablet 800 mg PO TID PRN (Reason: pain) Qty: 14 0RF meclizine 25 mg tablet 25 mg PO TID PRN (Reason: dizziness) Qty: 15 0RF ondansetron 4 mg tablet,disintegrating 4 mg PO Q8H PRN (Reason: nausea and vomiting) Qty: 15 0RF ondansetron 4 mg tablet,disintegrating 4 mg PO Q8H PRN (Reason: nausea and vomiting) Qty: 10 0RF Follow-up/Referrals: Brannon,Berta Wheeler MD [Primary Care Provider] - Time of Disposition: 22:49
--- OUTSIDE RECORDS SUMMARY | 2024-10-03 21:50 | XMS_ITS | Continuity of Care Document ---
Author Organization [facility] Address [address] [place] [address] Phone Care Team Providers Care Transplant Case Manager Name Role Phone Unavailable Unavailable Unavailable Advance Directives Directive Yes / No Effective Date File Name No Information Encounters Encounter Description Practice Location Reason(s) For Visit Diagnoses Date Provider Providers Copied on Encounter [facility], [address] [facility], [place], [place], [id number], tel:[phone] [facility] No Information 201 [id number] No Information Referring Provider: JUDY HERNANDEZ, [address] [place] [address],[place], [address]. tel:[phone] Family History Family Member Type Diagnosis Age At Onset No Information Payers Payer name Insurance type Covered libertarian ID Authoriza tibuddy(s) [employer] [facility] [employer] [facility] [place] [id number] CI [id number] Social History Type Description Quantity Date Captured Comments Sex Female Smoking Status No Information Chief Complaint And Reason For Visit No Information History Of Present Illness Encounter Date Complaint History Of Prese nt Illness No Information Instructions Date Instruction Additional Infor mation No Information Assessments Type Assessment Date No Information
--- OUTSIDE RECORDS SUMMARY | 2024-10-03 21:50 | XMS_ITS | Referral Summary ---
Author Organization [facility] [place] [address] Address [address] [place] [address] Care Team Providers Care Production Tool Engineer Name Role Phone Jonas Carreno MD Primary Care Provider Maria Del [address] MACHINE SETTER AND REPAIRER Unavailable [phone] Allergies Active Allergy Reactions Criticality Noted Date Comments Sulfamethoxazole-Trimethop rim Nausea & Vomiting,Vomiting Medium 02/16/2022 Medications acetaminophen (TylenoL) 325 mg capsule Tylenol Active ergocalciferol (VITAMIN D) 50,000 unit capsule 07/19/19 23 Active etonogestreL (Nexplanon) 68 mg implant Inject by subcutaneous route. 04/16/19 21 Active ferrous sulfate 325 mg (65 mg of elemental iron) tablet 07/09/19 23 Active metroNIDAZOLE (FLAGYL) 500 mg tablet Take 1 tablet twice a day by oral route for 7 days. 07/09/19 23 Active ibuprofen (ADVIL,MOTRIN) 800 mg tablet Take 1 tablet (800 mg total) by mouth 3 (three) times a day 21 tablet 10/17/19 23 Active meclizine (ANTIVERT) 25 mg tablet 11/10/19 23 Active ondansetron ODT (ZOFRAN-ODT) 4 mg disintegrating tablet 11/10/19 23 Active Active Problems Problem Noted Date Diagnosed Date Vitamin D deficiency 07/18/2022 Iron deficiency anemia 07/08/2022 Anemia 2022 Primary osteoarthritis involving multiple joints 02/16/2022 Osteoarthritis of knee 01/19/2022 Immunizations Immunization Administration Dates Next Due Tdap 03/14/2015 Social History Tobacco Use Types Packs/Day Years Used Date Smoking Tobacco: Every Day Cigarettes Smokeless Tobacco: Never Tobacco Cessation:Ready to Q uit: Not Asked; Counseling Given: Yes Hunger Vital Sign Answer Date Recorded Within the past 12 months, y ou worried that your food would run out before you got the money to buy more. Never true 06/09/19 23 Within the past 12 months, t he food you bought just didn't last and you didn't have money to get more. Never true 06/08/2022 Comments Unknown Sex and Gender Information Value Date Recorded Sex Assigned at Not on file Legal Sex Female 12:29 PM PARTS REPRESENTATIVE Gender Identity Not on file Sexual Orientation Not on file Last Filed Vital Signs Vital Sign Reading Time Taken Comments Blood Pressure 130/68 11/10/2022 11:08 AM CDT Pulse 71 11/10/2022 11:08 AM CDT Temperature 37.1 C (98.7 F) 11/10/2022 11:08 AM CDT Respiratory Rate 18 11/10/2022 11:08 AM CDT Oxygen Saturation 99% 11/10/2022 11:08 AM CDT Inhaled Oxygen Concentration - - Weight 158.8 kg (350 lb) 11/10/2022 11:08 AM CDT Height 177.8 cm (5' 10) 11/10/2022 11:08 AM CDT Body Mass Index 50.22 11/10/2022 11:08 AM CDT Plan of Treatment Not on file Insurance [facility] [employer] [facility] [employer] [facility] Care Teams Production Tool Engineer Relationship Specialty Start Date End Date Jonas Carreno MD [address] [place] [id number] PCP - General Internal Medicine 02/16/[address] NP [address] [place] [id number] Nurse Practitioner Orthopedic Surgery 02/16/22
--- OUTSIDE RECORDS SUMMARY | 2024-10-03 21:50 | XMS_ITS | Data Portability ---
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 Plan of Treatment Reminders Order Date Submit Date Provider Last Modified By Organization Details Last Modified Time Details Appointments None recorded. Lab CBC w/ auto diff 2024 025 [facility], [address], [place], [address], 5 03:36:38 iron + total iron-bind ing capacity (TIBC), serum 2024 025 [facility], [address], [place], [address], 5 10:37:32 ferritin, serum or plasma 2024 025 [facility], [address], [place], [address], 5 10:37:34 vitamin D, 25-hydrox y, total, serum 2023 024 [facility], [address] [place] [address], [facility], [place], [address], 4 08:37:43 CBC w/ auto diff 2023 024 [facility], [address], [place], [address], 4 03:36:51 ferritin, serum or plasma 2023 [facility], [address], [place], [address], 4 08:37:42 iron + total iron-bind ing capacity (TIBC), serum 2023 [facility], [address], [place], [address], 4 08:37:41 vitamin B12 + folate, serum or blood 2023 [facility], [address], [place], [address], 4 08:37:40 lipid panel, serum 2023 [facility], [address], [place], [address], 4 03:36:48 CMP, serum or plasma 2023 [facility], [address], [place], [address], 4 03:36:49 cytology report, thin prep, smear or scraping, cervical or vaginal 2023 024 [facility], [address], [place], [address], 4 16:49:37 Referral orthopedi c surgeon referral - chronic bilateral knee pain; had fall onto right knee in January 20242024 025 [facility], [address], [place], [address], 5 16:53:34 counselin g referral - worsening depressio n symptoms; needs helping with coping 2023 024 janey Ryan (), [address], [place], [address], 5 15:40:22 orthopedi c surgeon referral - trauma to right knee (tripped over doorway gate) 2 weeks ago. positive Lesia test on exam and anterior knee bursitis vs bloody fluid collectio n, as patient on Eliquis for DVT diagnosed 09/2023. has appointme nt with PT in early Feb but may need earlier evaluatio n prior to this. 2023 [facility], [address], [place], [address], 5 10:32:30 pain managemen t referral - chronic pain; is seeing PT for knee pain and referred to PT for back pain 2023 [facility], [address], [place], [address], 5 09:02:23 physical therapist referral - chronic neck and back pain 2023 EST[facility], [address], [place], [address], 4 14:55:04 Procedures None recorded. Surgeries None recorded. Imaging None recorded. Medication Orders hydroxyzi ne HCl 25 mg tablet 2023 025 [facility], [address] [place], [address], 5 12:50:51 duloxetin e 30 mg capsule,d elayed release 2023 025 [facility], [address] [employer] [place], [address], 5 12:44:27 oxycodone 5 mg tablet 2023 025 [facility], [address] [place] [address], [address], 12:48:03 Patient TargetsNo targets recorded. Patient Instructions Encounter Date Encounter Id Patient Instructions Last Modified By Organization Details Last Modified Time 02/03/2024 [id number] A healthy lifestyle: care instructions [email or web address] Not available 02/03/2024 15:26:18 Reason for Referral Pain Management Referral for Chronic back pain chronic pain; is seeing PT for knee pain and referred to PT for back pain Referring Physician: Berta [facility], Encounter Date: 01/06/2024 Physical Therapist Referral for Chronic back pain chronic neck and back pain Referring Physician: Berta Ericks[facility] Codi, Encounter Date: 01/06/2024 Orthopedic Surgeon Referral for Pain of right knee joint may need knee injection and/or MRI; concern for bursitis and meniscal tear trauma to right knee (tripped over doorway gate) 2 weeks ago. positive Lesia test on exam and anterior knee bursitis vs bloody fluid collection, as patient on Eliquis for DVT diagnosed 09/2023. has appointment with PT in early Feb but may need earlier evaluation prior to this. Referring Physician: Family Codi Edouard, Encounter Date: 02/02/2024 Counseling Referral for Mixe d anxiety and depressive disorder worsening depression symptoms; needs helping with coping Referring Physician: Berta Ericks[facility] Codi, Encounter Date: 02/28/2024 Orthopedic Surgeon Referral for Osteoarthritis of knee chronic bilateral knee pain; had fall onto right knee in January 2024 Referring Physician: Berta Ericks[facility] Codi, Encounter Date: 05/29/2024 Results Created Date Observation Date Name Description Value Unit Range Abnormal Flag Note LastModifiedBy Organization Detail LastModifiedTime 12/08/19 24 12/08/2023 Antit hromb in actua l/nor mal in Plate let poor plasm a by Chrom ogeni c metho d antithrombin actual/moris l in platelet poor plasma by chromogenic method 83 % low: 82%hig h: 139% ANTIT HROMB IN III 83 82 - 139 % 12/07 9:43 PM CDT [facility] Not Available Not Available 05/29/2024 03:31:38 12/08/19 24 12/08/2023 Antit hromb in actua l/nor mal in Plate let poor plasm a by Chrom ogeni c metho d interpretati on and review of laboratory results Normal Not Available Not Available 05/12 03:31:38 12/08/19 24 12/09/2023 Prote in S actua l/nor mal in Plate let poor plasm a by Coagu latio n assay protein S actual/moris l in platelet poor plasma by coagulation assay 109 % low: 65%hig h: 129% PROTE IN S ACTIV ITY 109.0 65 - 129 % 12/08 9:51 AM CDT [facility] Not Available Not Available 05/29/2024 03:31:38 12/08/19 24 12/09/2023 Prote in S actua l/nor mal in Plate let poor plasm a by Coagu latio n assay interpretati on and review of laboratory results Normal Not Available Not Available 05/12 03:31:38 12/08/1912/08/2023 Iron panel - Serum or Plasm a iron [mass/volume ] in serum or plasma 20 text: 25 - 156 mcg/dL low IRON 20 (L) 25 - 156 mcg/d L 12/07 5:24 PM CDT [facility] Not Available Not Available 05/29/2024 03:31:38 12/08/19 24 12/08/2023 Iron panel - Serum or Plasm a transferrin [mass/volume ] in serum or plasma 314 mg/dL low: 180mg/ dLhigh : 382mg/ dL TRANS BECKIE N 314 180 - 382 mg/dL 12/07 5:24 PM CDT [facility] [place] [facility] Not Available Not Available 05/29/2024 03:31:38 12/08/19 24 12/08/2023 Iron panel - Serum or Plasm a iron binding capacity [mass/volume ] in serum or plasma 393 text: 265 - 497 mcg/dL TIBCEDU LATED 393 265 - 497 mcg/d L 12/07 5:24 PM CDT [facility] Not Available Not Available 05/29/2024 03:31:38 12/08/19 24 12/08/2023 Iron panel - Serum or Plasm a iron saturation [mass fraction] in serum or plasma 5 % low: 15%hig h: 62% low % SATUR ATION * 5 (L) 15 - 62 % 12/07 5:24 PM CDT [facility] [place] [facility] Not Available Not Available 05/29/2024 03:31:38 12/08/19 24 12/08/2023 Iron panel - Serum or Plasm a interpretati on and review of laboratory results Abnorm al Not Available Not Available 03:31:38 12/08/19 24 12/11/2023 Prote in elect ropho resis and Immun oglob ulins panel - Serum protein [mass/volume ] in serum or plasma 7.5 g/dL low: 6.3g/d Lhigh: 8.2g/d L TOTAL PROTE IN 7.5 6.3 - 8.2 g/dL 12/10 10:02 AM CDT [facility] Not Available Not Available 05/29/2024 03:31:38 12/08/19 24 12/11/2023 Prote in elect ropho resis and Immun oglob ulins panel - Serum albumin/prot ein.total in serum or plasma by electrophore sis 44.5 % low: 55.8%h igh: 66.7% low % ALBUM IN 44.5 (L) 55.8 - 66.7 % 12/10 10:02 AM CDT [facility] Not Available Not Available 05/29/2024 03:31:38 12/08/19 24 12/11/2023 Prote in elect ropho resis and Immun oglob ulins panel - Serum albumin [mass/volume ] in serum or plasma by electrophore sis 3.3 g/dL low: 2.5g/d Lhigh: 5.4g/d L ALBUM IN SERUM 3.3 2.5 - 5.4 g/dL 12/10 10:02 AM CDT [facility] Not Available Not Available 05/29/2024 03:31:38 12/08/19 24 12/11/2023 [facility] - Serum alpha 1 globulin/pro tein.total in serum or plasma by electrophore sis 3.3 % low: 2.9%hi gh: 4.9% % ALPHA 1 GLOBU ANTONIO 3.3 2.9 - 4.9 % 12/10 10:02 AM CDT [facility] Not Available Not Available 05/29/2024 03:31:38 12/08/19 24 12/11/2023 Prote in [facility] Immun oglob ulins panel - Serum alpha 1 globulin [mass/volume ] in serum or plasma by electrophore sis 0.2 g/dL low: 0.2g/d Lhigh: 0.4g/d L ALPHA 1 0.2 0.2 - 0.4 g/dL 12/10 10:02 AM CDT [facility] Not Available Not Available 05/29/2024 03:31:38 12/08/19 24 12/11/2023 Prote in elect [facility] resis and Immun oglob ulins panel - Serum alpha 2 globulin/pro tein.total in serum or plasma by electrophore sis 11.9 % low: 7.1%hi gh: 11.8% high % ALPHA 2 GLOBU ANTONIO 11.9 (H) 7.1 - 11.8 % 12/10 10:02 AM CDT [facility] Not Available Not Available 05/29/2024 03:31:38 12/08/19 24 12/11/2023 Prote [facility] Immun oglob ulins panel - Serum alpha 2 globulin [mass/volume ] in serum or plasma by electrophore sis 0.9 g/dL low: 0.5g/d Lhigh: 1g/dL ALPHA 2 0.9 0.5 - 1.0 g/dL 12/10 10:02 AM CDT [facility] Not Available Not Available 05/29/2024 03:31:38 12/08/19 24 12/11/2023 Prote in elect ropho resis and Immun oglob ulins panel - Serum beta globulin/pro tein.total in serum or plasma by electrophore sis 15.6 % low: 8.4%hi gh: 13.1% high % BETA 15.6 (H) 8.4 - 13.1 % 12/10 10:02 AM CDT [facility] Not Available Not Available 05/29/2024 03:31:38 12/08/19 24 12/11/2023 Prote in elect ropho resis and Immun oglob ulins panel - Serum beta globulin [mass/volume ] in serum or plasma by electrophore sis 1.2 g/dL low: 0.5g/d Lhigh: 1.1g/d L high BETA- GLOBU ANTONIO 1.2 (H) 0.5 - 1.1 g/dL 12/10 10:02 AM CDT [facility] Not Available Not Available 05/29/2024 03:31:38 12/08/19 24 12/11/2023 Prote in elect ropho resis and Immun oglob ulins panel - Serum gamma globulin/pro tein.total in serum or plasma by electrophore sis 24.7 % low: 11.1%h igh: 18.8% high % GAMMA GLOBU ANTONIO 24.7 (H) 11.1 - 18.8 % 12/10 10:02 AM CDT [facility] Not Available Not Available 05/29/2024 03:31:38 12/08/19 24 12/11/2023 Prote in elect ropho resis and Immun oglob ulins panel - Serum gamma globulin [mass/volume ] in serum or plasma by electrophore sis 1.8 g/dL low: 0.7g/d Lhigh: 1.5g/d L high GAMMA 1.8 (H) 0.7 - 1.5 g/dL 12/10 10:02 AM CDT [facility] Not Available Not Available 05/29/2024 03:31:38 12/08/19 24 12/11/2023 Prote in elect ropho resis and Immun oglob ulins panel - Serum IgG [mass/volume ] in serum or plasma 1760 mg/dL low: 552mg/ dLhigh : 1631mg /dL high IMMUN OGLOB ULIN G 1,760 (H) 552 - 1,631 mg/dL 12/10 10:02 AM CDT [facility] Not Available Not Available 05/29/2024 03:31:38 12/08/19 24 12/11/2023 Prote in elect ropho resis and Immun oglob ulins panel - Serum IgA [mass/volume ] in serum or plasma 266 mg/dL low: 65mg/d Lhigh: 421mg/ dL IMMUN OGLOB ULIN A 266 65 - 421 mg/dL 12/10 10:02 AM CDT [facility] Not Available Not Available 05/29/2024 03:31:38 12/08/19 24 12/11/2023 Prote in elect ropho resis and Immun oglob ulins panel - Serum IgM [mass/volume ] in serum or plasma 160 mg/dL low: 33mg/d Lhigh: 293mg/ dL IMMUN OGLOB ULIN M 160 33 - 293 mg/dL 12/10 10:02 AM CDT [facility] Not Available Not Available 05/29/2024 03:31:38 12/08/19 24 12/11/2023 Prote in elect ropho resis and Immun oglob ulins panel - Serum protein fractions [interpretat ion] in serum or plasma by immunofixati on No abnorm al protei n band is detect ed by serum protei n electr ophore sis. Serum immuno fixati on electr ophore sis is negati ve for monocl onal immuno globul ins. Review ed by Leonela Coates, Ph.D. INTER PRETA TION SERUM No abnor mal prote in band is detec prudence by serum prote in elect ropho resis . Serum immun ofixa tion elect ropho resis is negat pop for monoc lonal immun oglob ulins . Revie wed by Dave Coates, Ph.D. 12/10 10:02 AM CDT [facility] Not Available Not Available 05/29/2024 03:31:38 12/08/19 24 12/11/2023 Prote in elect ropho resis and Immun oglob ulins panel - Serum albumin/glob ulin [mass ratio] in serum or plasma by electrophore sis 0.8 A/G RATIO , SERUM 0.8 12/10 10:02 AM CDT [facility] Not Available Not Available 05/29/2024 03:31:38 12/08/19 24 12/11/2023 Prote in elect ropho resis and Immun oglob ulins panel - Serum Unknown Analyte Review ed by Costa Camacho M.D. Revie wed by Tonay anguiano M.D. Not Available Not Available 05/29/2024 03:31:38 12/08/19 24 12/11/2023 Prote in elect ropho resis and Immun oglob ulins panel - Serum interpretati on and review of laboratory results Abnorm al Not Available Not Available 03:31:38 12/08/19 24 12/09/2023 Immun oglob ulin light chain s.ryan e panel - Serum kappa light chains.free [mass/volume ] in serum 43.21 mg/L low: 3.3mg/ Lhigh: 19.4mg /L high Free [place] [facility] 43.21 (H) 3.30 - 19.40 mg/L 12/08 9:21 AM CDT [facility] Not Available Not Available 05/29/2024 03:31:38 12/08/19 24 12/09/2023 Immun oglob ulin light chain s.ryan e panel - Serum lambda light chains.free [mass/volume ] in serum or plasma 29.98 mg/L low: 5.71mg /Lhigh : 26.3mg /L high Free [place] [facility] 29.98 (H) 5.71 - 26.30 mg/L 12/08 9:21 AM CDT [facility] Not Available Not Available 05/29/2024 03:31:38 12/08/19 24 12/09/2023 Immun oglob ulin light chain s.ryan e panel - Serum kappa light chains.free/ lambda light chains.free [mass ratio] in serum 1.44 low: 0.26hi gh: 1.65 free hermelinda reyna ratio 1.44 0.26 - 1.65 12/08 9:21 AM CDT [facility] Not Available Not Available 05/29/2024 03:31:38 12/08/19 24 12/09/2023 Immun oglob ulin light chain s.ryan e panel - Serum interpretati on and review of laboratory results Abnorm al Not Available Not Available 03:31:38 12/08/19 24 12/08/2023 Lacta te dehyd rogen ase [Enzy matic activ ity/v olume ] in Serum or Plasm a by Lacta te to pyruv ate react ion lactate dehydrogenas e [enzymatic activity/vol ume] in serum or plasma by lactate to pyruvate reaction 168 U/L low: 125U/L high: 220U/L LDH 168 125 - 220 U/L 12/07 5:24 PM CDT [facility] Not Available Not Available 05/29/2024 03:31:37 12/08/19 24 12/08/2023 Lacta te dehyd rogen ase [Enzy matic activ ity/v olume ] in Serum or Plasm a by Lacta te to pyruv ate react ion interpretati on and review of laboratory results Normal Not Available Not Available 05/12 03:31:37 12/08/19 24 12/08/2023 Cobal gould (Karen min B12) [Mass /volu me] in Serum or Plasm a cobalamin (vitamin B12) [mass/volume ] in serum or plasma 200 pg/mL low: 213pg/ mLhigh : 816pg/ mL low VITAM IN B12 200 (L) 213 - 816 pg/mL 12/07 5:51 PM CDT [facility] Not Available Not Available 05/29/2024 03:31:37 12/08/19 24 12/08/2023 Cobal gould (Karen min B12) [Mass /volu me] in Serum or Plasm a interpretati on and review of laboratory results Abnorm al Not Available Not Available 03:31:37 12/08/19 24 12/08/2023 Compr ehens pop metab olic 1999 panel - Serum or Plasm a sodium [moles/volum e] in serum or plasma 137 mmol/ L low: 136mmo l/Lhig h: 145mmo l/L SODIU M 137 136 - 145 mmol/ L 12/07 5:24 PM CDT [facility] Not Available Not Available 05/29/2024 03:31:37 12/08/19 24 12/08/2023 Compr ehens pop metab olic 1999 panel - Serum or Plasm a potassium [moles/volum e] in serum or plasma 4.3 mmol/ L low: 3.5mmo l/Lhig h: 5.1mmo l/L POTAS SIUM 4.3 3.5 - 5.1 mmol/ L 12/07 5:24 PM CDT [facility] Not Available Not Available 05/29/2024 03:31:37 12/08/19 24 12/08/2023 Compr ehens pop metab olic 1999 panel - Serum or Plasm a chloride [moles/volum e] in serum or plasma 109 mmol/ L low: 98mmol /Lhigh : 107mmo l/L high CHLOR ELOISE 109 (H) 98 - 107 mmol/ L 12/07 5:24 PM CDT [facility] Not Available Not Available 05/29/2024 03:31:37 12/08/19 24 12/08/2023 Compr ehens pop metab olic 1999 panel - Serum or Plasm a carbon dioxide, total [moles/volum e] in serum or plasma 23 mmol/ L low: 22mmol /Lhigh : 30mmol /L CO2, VENOU S 23 22 - 30 mmol/ L 12/07 5:24 PM CDT [facility] Not Available Not Available 05/29/2024 03:31:37 12/08/19 24 12/08/2023 Compr ehens pop metab olic 1999 panel - Serum or Plasm a anion gap in serum or plasma 9.3 mmol/ L high: 18mmol /L ANION GAP 9.3 <18.0 mmol/ L 12/07 5:24 PM CDT [facility] Not Available Not Available 05/29/2024 03:31:37 12/08/19 24 12/08/2023 Compr ehens pop metab olic 1999 panel - Serum or Plasm a glucose [mass/volume ] in serum or plasma 89 mg/dL low: 70mg/d Lhigh: 99mg/d L GLUCO SE 89 70 - 99 mg/dL 12/07 5:24 PM CD[facility] Not Available Not Available 05/29/2024 03:31:37 12/08/19 24 12/08/2023 Compr ehens pop metab olic 1999 panel - Serum or Plasm a urea nitrogen [mass/volume ] in serum or plasma 8 mg/dL low: 5mg/dL high: 18mg/d L BUN 8 5 - 18 mg/dL 12/07 5:24 PM CDT [facility] Not Available Not Available 05/29/2024 03:31:37 12/08/19 24 12/08/2023 Compr Likeable Localens pop metab olic 1999 panel - Serum or Plasm a creatinine [mass/volume ] in serum or plasma 0.75 mg/dL low: 0.6mg/ dLhigh : 1mg/dL CREAT ININE , BLOOD 0.75 0.60 - 1.00 mg/dL 12/07 5:24 PM CDT [facility] Not Available Not Available 05/29/2024 03:31:37 12/08/19 24 12/08/2023 Compr Likeable Localens pop metab olic 1999 panel - Serum or Plasm a urea nitrogen/cre atinine [mass ratio] in serum or plasma 11 text: 12 - 20 ratio low BUN/C REATI NINE RATIO 11 (L) 12 - 20 ratio 12/07 5:24 PM CDT [facility] [facility] Not Available Not Available 05/29/2024 03:31:37 12/08/19 24 12/08/2023 Compr Likeable Localens pop metab olic 1999 panel - Serum or Plasm a protein [mass/volume ] in serum or plasma 7.8 g/dL low: 6.3g/d Lhigh: 8.2g/d L TOTAL PROTE IN 7.8 6.3 - 8.2 g/dL 12/07 5:24 PM CDT [facility] Not Available Not Available 05/29/2024 03:31:37 12/08/19 24 12/08/2023 Compr Likeable Localens pop metab olic 1999 panel - Serum or Plasm a albumin [mass/volume ] in serum or plasma 3.8 g/dL low: 3.5g/d Lhigh: 5g/dL ALBUM IN 3.8 3.5 - 5.0 g/dL 12/07 5:24 PM CDT [facility] [employer] LAB Not Available Not Available 05/29/2024 03:31:37 12/08/19 24 12/08/2023 Compr Likeable Localens pop NoWait olic 2000 panel - Serum or Plasm a albumin/glob ulin [mass ratio] in serum or plasma 1 low: 1high: 2.2 A/G RATIO 1.0 1.0 - 2.2 12/07 5:24 PM CDT [facility] R LAB Not Available Not Available 05/29/2024 03:31:37 12/08/19 24 12/08/2023 Compr Likeable Localens pop NoWait olic 1999 panel - Serum or Plasm a calcium [mass/volume ] in serum or plasma 9.1 mg/dL low: 8.7mg/ dLhigh : 10.5mg /dL CALCI UM 9.1 8.7 - 10.5 mg/dL 12/07 5:24 PM CDT [facility] [employer] R LAB Not Available Not Available 05/29/2024 03:31:37 12/08/19 24 12/08/2023 Compr Likeable Localens pop metab olic 2000 panel - Serum or Plasm a bilirubin.to ollie [mass/volume ] in serum or plasma 0.2 mg/dL low: 0.2mg/ dLhigh : 1.2mg/ dL T BILI 0.2 0.2 - 1.2 mg/dL 12/07 5:24 PM CDT [facility] Not Available Not Available 05/29/2024 03:31:37 12/08/19 24 12/08/2023 Compr ehens pop metab olic 1999 panel - Serum or Plasm a aspartate aminotransfe rase [enzymatic activity/vol ume] in serum or plasma 13 U/L low: 5U/Lhi gh: 34U/L SGOT (AST) 13 5 - 34 U/L 12/07 5:24 PM CDT [facility] Not Available Not Available 05/29/2024 03:31:37 12/08/19 24 12/08/2023 Compr ehens pop metab olic 2000 panel - Serum or Plasm a alanine aminotransfe rase [enzymatic activity/vol ume] in serum or plasma 11 U/L low: 0U/Lhi gh: 55U/L SGPT (ALT) 11 0 - 55 U/L 12/07 5:24 PM CDT [facility] LAB Not Available Not Available 05/29/2024 03:31:37 12/08/19 24 12/08/2023 Compr ehens pop metab olic 2000 panel - Serum or Plasm a alkaline phosphatase [enzymatic activity/vol ume] in serum or plasma 66 U/L low: 40U/Lh igh: 150U/L ALKAL INE PHOSP HATAS E 66 40 - 150 U/L 12/07 5:24 PM CDT [facility] LAB Not Available Not Available 05/29/2024 03:31:37 12/08/19 24 12/08/2023 Compr Likeable Localens pop metab olic 2000 panel - Serum or Plasm a IS the patient required to BE fasting? No IS THE PATIE NT REQUI RED TO BE FASTI NG? No 12/07 5:24 PM CDT [facility] Not Available Not Available 05/29/2024 03:31:37 12/08/19 24 12/08/2023 Compr ehens pop metab olic 1999 panel - Serum or Plasm a glomerular filtration rate/1.73 sq M.predicted among non-blacks [volume rate/area] in serum, plasma or blood by creatinine-b ased formula (MDRD) low: 60 GFR, ESTIM ATED >60 >=60 12/07 5:24 PM CDT [facility] [employer]T [employer] R LAB Not Available Not Available 05/29/2024 03:31:37 12/08/19 24 12/08/2023 Compr ehens pop metab olic 2000 panel - Serum or Plasm a glomerular filtration rate/1.73 sq M.predicted among blacks [volume rate/area] in serum, plasma or blood by creatinine-b ased formula (MDRD) low: 60 GFR, EST. AFRIC AN >60 >=60 12/07 5:24 PM CDT [facility] [employer] R LAB Not Available Not Available 05/29/2024 03:31:37 12/08/19 24 12/08/2023 Compr ehens pop metab olic 2000 panel - Serum or Plasm a glomerular filtration rate/1.73 sq M.predicted among non-blacks [volume rate/area] in serum, plasma or blood by creatinine-b ased formula (MDRD) low: 60 GFR, EST. NONAF RICAN >60 >=60 12/07 5:24 PM CDT [facility] [employer] R LAB Not Available Not Available 05/29/2024 03:31:37 12/08/1912/08/2023 Compr Likeable Localens pop metab olic 2000 panel - Serum or Plasm a interpretati on and review of laboratory results Abnorm al Not Available Not Available 03:31:37 12/08/1912/08/2023 Beckie tin [Mass /volu me] in Serum or Plasm a ferritin [mass/volume ] in serum or plasma 4 NG/mL low: 5NG/mL high: 204NG/ mL low BECKIE TIN 4 (L) 5 - 204 ng/mL 12/07 5:37 PM CDT [facility] Barak IT[employer] R LAB Not Available Not Available 05/29/2024 03:31:37 12/08/19 24 12/08/2023 Beckie tin [Mass /volu me] in Serum or Plasm a interpretati on and review of laboratory results Abnorm al Not Available Not Available 03:31:37 12/08/19 24 12/08/2023 Folat e [Mass /volu me] in Serum or Plasm a folate [mass/volume ] in serum or plasma 5.7 NG/mL low: 7NG/mL high: 31.4NG /mL low FOLAT E 5.7 (L) 7.0 - 31.4 ng/mL 12/07 5:51 PM CDT [facility] Not Available Not Available 05/29/2024 03:31:37 12/08/19 24 12/08/2023 Folat e [Mass /volu me] in Serum or Plasm a thermoactino myces vulgaris IgG Ab [mass/volume ] in serum No IS THE PATIE NT REQUI RED TO BE FASTI NG? No 12/07 5:51 PM CDT [facility] Not Available Not Available 05/29/2024 03:31:37 12/08/19 24 12/08/2023 Folat e [Mass /volu me] in Serum or Plasm a interpretati on and review of laboratory results Abnorm al Not Available Not Available 03:31:37 02/03/20 24 02/03/2024 LIPID PANEL cholesterol, total 171 mg/dL 100-19 9 Not Available [facility] Department [address] [place], [address], 02/04/2024 03:36:48 02/03/20 24 02/03/2024 LIPID PANEL triglyceride s 133 mg/dL 0-149 Not Available [facility] Department [address] [place], [address], 02/04/2024 03:36:48 02/03/20 24 02/03/2024 LIPID PANEL HDL cholesterol 40 mg/dL 40-999 Not Available [facility] Department [address] [place] [address], [address], 02/04/2024 03:36:48 02/03/20 24 02/03/2024 LIPID PANEL VLDL cholesterol rudolph 27 mg/dL 5-40 Not Available [facility] Department [address] [place] [address], [address], 02/04/2024 03:36:48 02/03/20 24 02/03/2024 LIPID PANEL LDL chol calc (nih) 123 mg/dL 0-99 above high normal Not Available [facility] Department [address] [place] [address], [address], 02/04/2024 03:36:48 02/03/20 24 02/03/2024 COMP. METAB OLIC PANEL (14) glucose 77 mg/dL 70-99 Not Available [facility] Department [address] [place] [address], [address], 02/04/2024 03:36:49 02/03/20 24 02/03/2024 COMP. METAB OLIC PANEL (14) BUN 12 mg/dL 6-20 Not Available [facility] Department [address] [place] [address], [address], 02/04/2024 03:36:49 02/03/20 24 02/03/2024 COMP. METAB OLIC PANEL (14) creatinine 0.72 mg/dL 0.76-1 .27 below low normal Not Available [facility] Department [address] [place] [address], [address], 02/04/2024 03:36:49 02/03/20 24 02/03/2024 COMP. METAB OLIC PANEL (14) eGFR 115 >=60 Units for eGFR value s are mL/mi n/1.7 3 The eGFR Calcu latio n has not been valid ated for patie nts under the age of 18. If test resul ts are displ ayed for a patie nt under the age of 18, disre isha that value . Not Available [facility] Department [address] [place] [address], [address], 02/04/2024 03:36:49 02/03/20 24 02/03/2024 COMP. METAB OLIC PANEL (14) BUN/creatini ne ratio 17 9-23 Not Available [facility] Department [address] [place], [address], 02/04/2024 03:36:49 02/03/20 24 02/03/2024 COMP. METAB OLIC PANEL (14) sodium 139 mmol/ L 134-14 4 Not Available [facility] Department [address] [place] [address], [address], 02/04/2024 03:36:49 02/03/20 24 02/03/2024 COMP. METAB OLIC PANEL (14) potassium 4.6 mmol/ L 3.5-5. 2 Not Available [facility] Department [address] [place] [address], [address], 02/04/2024 03:36:49 02/03/20 24 02/03/2024 COMP. METAB OLIC PANEL (14) chloride 105 mmol/ L 96-106 Not Available [facility] Department [address] [place] [address], [address], 02/04/2024 03:36:49 02/03/20 24 02/03/2024 COMP. METAB OLIC PANEL (14) carbon dioxide, total 22 mmol/ L 20-29 Not Available [facility] Department [address] [place] [address], [address], 02/04/2024 03:36:49 02/03/20 24 02/03/2024 COMP. METAB OLIC PANEL (14) calcium 9.3 mg/dL 8.7-10 .2 Not Available [facility] Department [address] [place] [address], [address], 02/04/2024 03:36:49 02/03/20 24 02/03/2024 COMP. METAB OLIC PANEL (14) protein, total 7.9 g/dL 6.0-8. 5 Not Available [facility] Department [address] [place], [address], 02/04/2024 03:36:49 02/03/20 24 02/03/2024 COMP. METAB OLIC PANEL (14) albumin 4.2 g/dL 3.9-4. 9 Not Available [facility] Department [address] [place], [address], 02/04/2024 03:36:49 02/03/20 24 02/03/2024 COMP. METAB OLIC PANEL (14) globulin, total 3.7 g/dL 1.5-4. 5 Not Available [facility] Department [address] [place], [address], 02/04/2024 03:36:49 02/03/20 24 02/03/2024 COMP. METAB OLIC PANEL (14) A/G ratio 1.1 1.2-2. 2 below low normal Not Available [facility] Department [address] [place], [address], 02/04/2024 03:36:49 02/03/20 24 02/03/2024 COMP. METAB OLIC PANEL (14) bilirubin, total 0.2 mg/dL 0.0-1. 2 Not Available [facility] Department [address] [place], [address], 02/04/2024 03:36:49 02/03/20 24 02/03/2024 COMP. METAB OLIC PANEL (14) alkaline phosphatase 72 IU/L 44-121 Not Available [facility] Department [address] [place], [address], 02/04/2024 03:36:49 02/03/20 24 02/03/2024 COMP. METAB OLIC PANEL (14) AST (SGOT) 13 IU/L 0-40 Not Available [facility] Department [address] [place], [address], 02/04/2024 03:36:49 02/03/20 24 02/03/2024 COMP. METAB OLIC PANEL (14) ALT (SGPT) 12 IU/L 0-32 Not Available [facility] Department [address] [place], [address], 02/04/2024 03:36:49 02/03/20 24 02/03/2024 CBC WITH DIFFE RENTI AL/PL ATELE T WBC 10.4 x10e3 /uL 3.4-10 .8 Eff ectiv e Decem jo 2023 [place]i le [id number] 5 WBC will be made* * non-o rdera ble as a stand -sami e order code. Not Available [facility] Department [address] [place], [address], 02/04/2024 03:36:51 02/03/20 24 02/03/2024 CBC WITH DIFFE RENTI AL/PL ATELE T RBC 4.91 x10e6 /uL 3.77-5 .28 Not Available [facility] Department [address] [place], [address], 02/04/2024 03:36:51 02/03/20 24 02/03/2024 CBC WITH DIFFE RENTI AL/PL ATELE T hemoglobin 12.6 g/dL 11.1-1 5.9 Not Available [facility] Department [address] [place], [address], 02/04/2024 03:36:51 02/03/20 24 02/03/2024 CBC WITH DIFFE RENTI AL/PL ATELE T hematocrit 39.6 % 34.0-4 6.6 Not Available [facility] Department [address] [place], [address], 02/04/2024 03:36:51 02/03/20 24 02/03/2024 CBC WITH DIFFE RENTI AL/PL ATELE T MCV 81 fL 79-97 Not Available [facility] Department [address] [place], [address], 02/04/2024 03:36:51 02/03/20 24 02/03/2024 CBC WITH DIFFE RENTI AL/PL ATELE T MCH 25.7 pg 26.6-3 3.0 below low normal Not Available [facility] Department [address] [place], [address], 02/04/2024 03:36:51 02/03/20 24 02/03/2024 CBC WITH DIFFE RENTI AL/PL ATELE T MCHC 31.8 g/dL 31.5-3 5.7 Not Available [facility] Department [address] [place], [address], 02/04/2024 03:36:51 02/03/20 24 02/03/2024 CBC WITH DIFFE RENTI AL/PL ATELE T RDW 21.0 % 11.5-1 4.5 above high normal Not Available [facility] Department [address] [place], [address], 02/04/2024 03:36:51 02/03/20 24 02/03/2024 CBC WITH DIFFE RENTI AL/PL ATELE T platelets 462 x10e3 /uL 150-45 0 above high normal Not Available [facility] Department [address] [place], [address], 02/04/2024 03:36:51 02/03/20 24 02/03/2024 CBC WITH DIFFE RENTI AL/PL ATELE T neutrophils 66 % notest b. Not Available [facility] Department [address] [place], [address], 02/04/2024 03:36:51 02/03/20 24 02/03/2024 CBC WITH DIFFE RENTI AL/PL ATELE T lymphs 26 % notest b. Not Available [facility] Department [address] [place], [address], 02/04/2024 03:36:51 02/03/20 24 02/03/2024 CBC WITH DIFFE RENTI AL/PL ATELE T monocytes 5 % notest b. Not Available [facility] Department [address] [place], [address], 02/04/2024 03:36:51 02/03/20 24 02/03/2024 CBC WITH DIFFE RENTI AL/PL ATELE T eos 3 % notest b. Not Available [facility] Department [address] [place], [address], 02/04/2024 03:36:51 02/03/20 24 02/03/2024 CBC WITH DIFFE RENTI AL/PL ATELE T basos 0 % notest b. Not Available [facility] Department [address] [place] [address], [address], 02/04/2024 03:36:51 02/03/20 24 02/03/2024 CBC WITH DIFFE RENTI AL/PL ATELE T neutrophils (absolute) 6.9 x10e3 /uL 1.4-7. 0 Not Available [facility] Department [address] [place], [address], 02/04/2024 03:36:51 02/03/20 24 02/03/2024 CBC WITH DIFFE RENTI AL/PL ATELE T lymphs (absolute) 2.7 x10e3 /uL 0.7-3. 1 Not Available [facility] Department [address] [place], [address], 02/04/2024 03:36:51 02/03/20 24 02/03/2024 CBC WITH DIFFE RENTI AL/PL ATELE T monocytes(ab solute) 0.6 x10e3 /uL 0.1-0. 9 Not Available [facility] Department [address] [place], [address], 02/04/2024 03:36:51 02/03/20 24 02/03/2024 CBC WITH DIFFE RENTI AL/PL ATELE T eos (absolute) 0.3 x10e3 /uL 0.0-0. 4 Not Available [facility] Department [address] [place], [address], 02/04/2024 03:36:51 02/03/20 24 02/03/2024 CBC WITH DIFFE RENTI AL/PL ATELE T baso (absolute) 0.0 x10e3 /uL 0.0-0. 2 Not Available [facility] Department [address] [place], [address], 02/04/2024 03:36:51 02/03/20 24 02/03/2024 CBC WITH DIFFE RENTI AL/PL ATELE T immature granulocytes 0.1 % notest b. Not Available [facility] Department [address] [place], [address], 02/04/2024 03:36:51 02/03/20 24 02/03/2024 CBC WITH DIFFE RENTI AL/PL ATELE T immature grans (abs) 0.0 x10e3 /uL 0.0-0. 1 Not Available [facility] Department [address] [place], [address], 02/04/2024 03:36:51 02/03/20 24 02/03/2024 CBC WITH DIFFE RENTI AL/PL ATELE T NRBC 0 % 0-0 Not Available [facility] Department [address] [place], [address], 02/04/2024 03:36:51 02/03/20 24 02/04/2024 VITAM IN B12 AND FOLAT E vitamin B12 232 pg/mL 232-12 45 Not Available [facility] ([facility]) [address] [facility], [place], [address], 02/04/2024 08:37:40 02/03/20 24 02/04/2024 VITAM IN B12 AND FOLAT E folate (folic acid), serum 8.4 NG/mL >3.0 A serum folat e faviola ntrat ion of less than 3.1 ng/mL is consi dered to repre sent clini rudolph defic iency . Not Available [facility] ([facility]) [address] [facility], [place], [address], 02/04/2024 08:37:40 02/03/20 24 02/04/2024 IRON AND TIBC iron bind.cap.(TI BC) 358 ug/dL 250-45 0 Not Available [facility] ([facility]) [address] [facility], [place], [address], 02/04/2024 08:37:41 02/03/20 24 02/04/2024 IRON AND TIBC UIBC 319 ug/dL 131-42 5 Not Available [facility] ([facility]) [address] [place], [address], 02/04/2024 08:37:41 02/03/20 24 02/04/2024 IRON AND TIBC iron 39 ug/dL 27-159 Not Available [facility] ([facility]) [address] [place], [address], 02/04/2024 08:37:41 02/03/20 24 02/04/2024 IRON AND TIBC iron saturation 11 % 15-55 below low normal Not Available [facility] ([facility]) [address] [place], [address], 02/04/2024 08:37:41 02/03/20 24 02/04/2024 BECKIE TIN ferritin 14 NG/mL 15-150 below low normal Not Available [facility] ([facility]) [address] [place], [address], 02/04/2024 08:37:42 02/03/20 24 02/04/2024 VITAM IN D, 25-HY DROXY vitamin D, 25-hydroxy 15.3 NG/mL 30.0-1 00.0 below low normal Vitam in D defic iency has been defin ed by the Insti tute of Medic ine and an Endoc rine Socie ty pract ice guide line as a level of serum 25-OH vitam in D less than 20 ng/mL (1,2) . The Endoc rine Socie ty went on to furth er defin e vitam in D insuf ficie ncy as a level betwe en 21 and 29 ng/mL (2). 1. IOM (Inst itute of Medic ine). 2009. Dieta ry refer ence intak es for calci um and D. Emir juarez [place]: The [facility] . 2. Sabra shook [place], Trevor ey [place], [place] off-F errar i [place], et al. Evalu ation , treat ment, and preve ntion of vitam in D defic iency : an Endoc rine Socie ty clini rudolph pract ice guide line. JCEM. 2010; 96(7) :1911 -30. Not Available [facility] ([facility]) [address] [facility], [place], [address], 02/04/2024 08:37:43 02/03/20 24 02/06/2024 IGP, APTIM A HPV, RFX 16/18 ,45 HPV aptima NEGATI VE negati ve This nucle ic acid ampli ficat ion test detec ts fourt een high- risk HPV types (16,1 8,31, 33,35 ,39,4 5,51, 52,56 ,58,5 9,66, 68) witho ut diffe renti ation . Not Available [facility] ([facility]) [address] [facility], [place], [address], 02/13/2024 16:49:37 02/03/20 24 02/13/2024 IGP, APTIM A HPV, RFX 16/18 ,45 diagnosis: COMMEN T NEGAT POP FOR INTRA EPITH ELIAL LESIO N OR BETTIE PÉREZ . Not Available [facility] ([facility]) [address] [place], [address], 02/13/2024 16:49:37 02/03/20 24 02/13/2024 IGP, APTIM A HPV, RFX 16/18 ,45 specimen adequacy: MIHAI Fiore Satis facto ry for evalu ation . Endoc ervic al and/o r squam ous metap lasti c cells (endo cervi rudolph compo nent) are prese nt. Not Available [facility] ([facility]) [address] [place], [address], 02/13/2024 16:49:37 02/03/20 24 02/13/2024 IGP, APTIM A HPV, RFX 16/18 ,45 clinician provided ICD10: MIHAI Fiore Z00.0 1 Z12.4 E55.9 D50.0 D51.9 D52.9 Not Available [facility] ([facility]) [address] [place], [address], 02/13/2024 16:49:37 02/03/20 24 02/13/2024 IGP, APTIM A HPV, RFX 16/18 ,45 performed by: MIHAI choe Cytot prabhakar fiore (ASCP ) Not Available [facility] ([facility]) [address] [place], [address], 02/13/2024 16:49:37 02/03/20 24 02/13/2024 IGP, APTIM A HPV, RFX 16/18 ,45 . . Not Available [facility] ([facility]) [address] [place], [address], 02/13/2024 16:49:37 02/03/20 24 02/13/2024 IGP, APTIM A HPV, RFX 16/18 ,45 note: MIHAI Fiore The Pap smear is a scree argenis test destiffany ericka to aid in the detec tion of abdirahman ligna nt and malig nant condi tions of the uteri ne cervi x. It is not a diagn ostic proce dure and shoul d not be used as the sole means of detec ting cervi rudolph cance r. Both false -posi tive and false -nega tive repor ts do occur . Not Available [facility] ([facility]) [address] [facility], [place], [address], 02/13/2024 16:49:37 02/03/20 24 02/13/2024 IGP, APTIM A HPV, RFX 16/18 ,45 test methodology: COMMEN T This liqui d based ThinP rep(R ) pap test was scree ericka with the use of an image guide d syste m. Not Available [facility] ([facility]) [address] [facility], [place], [address], 02/13/2024 16:49:37 02/03/20 24 02/13/2024 IGP, APTIM A HPV, RFX 16/18 ,45 HPV genotype reflex COMMEN T Crite alejandro not met, HPV Genot ype not perfo rmed. Not Available [facility] ([facility]) [address] [facility], [place], [address], 02/13/2024 16:49:37 04/15/19 25 04/15/2024 Influ andres virus A and B and SARS- CoV-2 (COVI D-19) and Respi rator y syncy tial virus RNA panel - Respi rator y syste m speci men by ABHISHEK with probe detec tion influenza virus A RNA [presence] in upper respiratory specimen by ABHISHEK with probe detection Positi ve text: negati ve, error abnormal FLU A Posit pop (A) Negat pop, Error 04/15 5:16 PM EARLY CHILDHOOD DIRECTOR [facility] Not Available Not Available 05/29/2024 03:30:51 04/15/19 25 04/15/2024 Influ andres virus A and B and SARS- CoV-2 (COVI D-19) and Respi rator y syncy tial virus RNA panel - Respi rator y syste m speci men by ABHISHEK with probe detec tion influenza virus B RNA [presence] in upper respiratory specimen by ABHISHEK with probe detection Negati ve text: negati ve FLU B Negat pop Negat pop 04/15 5:16 PM EARLY CHILDHOOD DIRECTOR [facility] Not Available Not Available 05/29/2024 03:30:51 04/15/19 25 04/15/2024 Influ andres virus A and B and SARS- CoV-2 (COVI D-19) and Respi rator y syncy tial virus RNA panel - Respi rator y syste m speci men by ABHISHEK with probe detec tion respiratory syncytial virus RNA [presence] in respiratory system specimen by ABHISHEK with probe detection Negati ve text: negati ve RESP SYNC VIRUS Negat pop Negat pop 04/15 5:16 PM EARLY CHILDHOOD DIRECTOR [facility] Not Available Not Available 05/29/2024 03:30:51 04/15/19 25 04/15/2024 Influ andres virus A and B and SARS- CoV-2 (COVI D-19) and Respi rator y syncy tial virus RNA panel - Respi rator y syste m speci men by ABHISHEK with probe detec tion sars-cov-2 (covid-19) N gene [presence] in specimen by ABHISHEK with probe detection NOT DETECT ED text: (refer ence range for this test IS not detect ed) SARSC OV2 NOT DETEC PRUDENCE (Refe rence Range for this test is Not Detec prudence) 04/15 5:16 PM EARLY CHILDHOOD DIRECTOR [facility] Not Available Not Available 05/29/2024 03:30:51 04/15/19 25 04/15/2024 Influ andres virus A and B and SARS- CoV-2 (COVI D-19) and Respi rator y syncy tial virus RNA panel - Respi rator y syste m speci men by ABHISHEK with probe detec tion interpretati on and review of laboratory results Abnorm al Not Available Not Available 03:30:51 05/30/19 25 05/30/2024 CBC WITH DIFFE RENTI AL/PL ATELE T WBC 9.2 x10e3 /uL 3.4-10 .8 Not Available [facility] Department [address] [place], [address], 05/30/2024 03:36:38 05/30/1905/30/2024 CBC WITH DIFFE RENTI AL/PL ATELE T RBC 4.55 x10e6 /uL 3.77-5 .28 Not Available [facility] Department [address] [place], [address], 05/30/2024 03:36:38 05/30/19 25 05/30/2024 CBC WITH DIFFE RENTI AL/PL ATELE T hemoglobin 12.8 g/dL 11.1-1 5.9 Not Available [facility] Department [address] [place], [address], 05/30/2024 03:36:38 05/30/19 25 05/30/2024 CBC WITH DIFFE RENTI AL/PL ATELE T hematocrit 41.2 % 34.0-4 6.6 Not Available [facility] Department [address] [place], [address], 05/30/2024 03:36:38 05/30/1905/30/2024 CBC WITH DIFFE RENTI AL/PL ATELE T MCV 91 fL 79-97 Not Available [facility] Department [address] [place], [address], 05/30/2024 03:36:38 05/30/19 25 05/30/2024 CBC WITH DIFFE RENTI AL/PL ATELE T MCH 28.1 pg 26.6-3 3.0 Not Available [facility] Department [address] [place], [address], 05/30/2024 03:36:38 05/30/19 25 05/30/2024 CBC WITH DIFFE RENTI AL/PL ATELE T MCHC 31.1 g/dL 31.5-3 5.7 below low normal Not Available [facility] Department [address] [place], [address], 05/30/2024 03:36:38 05/30/19 25 05/30/2024 CBC WITH DIFFE RENTI AL/PL ATELE T RDW 14.7 % 11.5-1 4.5 above high normal Not Available [facility] Department [address] [place], [address], 05/30/2024 03:36:38 05/30/19 25 05/30/2024 CBC WITH DIFFE RENTI AL/PL ATELE T platelets 406 x10e3 /uL 150-45 0 Not Available [facility] Department [address] [place], [address], 05/30/2024 03:36:38 05/30/19 25 05/30/2024 CBC WITH DIFFE RENTI AL/PL ATELE T neutrophils 57 % notest b. Not Available [facility] Department [address] [place], [address], 05/30/2024 03:36:38 05/30/19 25 05/30/2024 CBC WITH DIFFE RENTI AL/PL ATELE T lymphs 30 % notest b. Not Available [facility] Department [address] [place], [address], 05/30/2024 03:36:38 05/30/19 25 05/30/2024 CBC WITH DIFFE RENTI AL/PL ATELE T monocytes 6 % notest b. Not Available [facility] Department [address] [place], [address], 05/30/2024 03:36:38 05/30/19 25 05/30/2024 CBC WITH DIFFE RENTI AL/PL ATELE T eos 7 % notest b. Not Available [facility] Department [address] [place], [address], 05/30/2024 03:36:38 05/30/19 25 05/30/2024 CBC WITH DIFFE RENTI AL/PL ATELE T basos 0 % notest b. Not Available [facility] Department [address] [place], [address], 05/30/2024 03:36:38 05/30/19 25 05/30/2024 CBC WITH DIFFE RENTI AL/PL ATELE T neutrophils (absolute) 5.2 x10e3 /uL 1.4-7. 0 Not Available [facility] Department [address] [place], [address], 05/30/2024 03:36:38 05/30/19 25 05/30/2024 CBC WITH DIFFE RENTI AL/PL ATELE T lymphs (absolute) 2.8 x10e3 /uL 0.7-3. 1 Not Available [facility] Department [address] [place], [address], 05/30/2024 03:36:38 05/30/19 25 05/30/2024 CBC WITH DIFFE RENTI AL/PL ATELE T monocytes(ab solute) 0.6 x10e3 /uL 0.1-0. 9 Not Available [facility] Department [address] [place], [address], 05/30/2024 03:36:38 05/30/19 25 05/30/2024 CBC WITH DIFFE RENTI AL/PL ATELE T eos (absolute) 0.6 x10e3 /uL 0.0-0. 4 above high normal Not Available [facility] Department [address] [place], [address], 05/30/2024 03:36:38 05/30/19 25 05/30/2024 CBC WITH DIFFE RENTI AL/PL ATELE T baso (absolute) 0.0 x10e3 /uL 0.0-0. 2 Not Available [facility] Department [address] [place], [address], 05/30/2024 03:36:38 05/30/19 25 05/30/2024 CBC WITH DIFFE RENTI AL/PL ATELE T immature granulocytes 0.2 % notest b. Not Available [facility] Department [address] [place], [address], 05/30/2024 03:36:38 05/30/19 25 05/30/2024 CBC WITH DIFFE RENTI AL/PL ATELE T immature grans (abs) 0.0 x10e3 /uL 0.0-0. 1 Not Available [facility] Department [address] [place], [address], 05/30/2024 03:36:38 05/30/19 25 05/30/2024 CBC WITH DIFFE RENTI AL/PL ATELE T NRBC 0 % 0-0 Not Available [facility] Department [address] [place], [address], 05/30/2024 03:36:38 05/30/19 25 05/30/2024 IRON AND TIBC iron bind.cap.(TI BC) 338 ug/dL 250-45 0 Not Available [facility] ([facility]) [address] [place], [address], 05/30/2024 10:37:32 05/30/19 25 05/30/2024 IRON AND TIBC UIBC 303 ug/dL 131-42 5 Not Available [facility] ([facility]) [address] [place], [address], 05/30/2024 10:37:32 05/30/19 25 05/30/2024 IRON AND TIBC iron 35 ug/dL 27-159 Not Available [facility] ([facility]) [address] [place], [address], 05/30/2024 10:37:32 05/30/19 25 05/30/2024 IRON AND TIBC iron saturation 10 % 15-55 below low normal Not Available [facility] ([facility]) [address] [place], [address], 05/30/2024 10:37:32 05/30/19 25 05/30/2024 BECKIE TIN ferritin 14 NG/mL 15-150 below low normal Not Available [facility] ([facility]) [address], [place], [address], 05/30/2024 10:37:34 01/22/20 24 01/21/2024 XR, knee, 4 or more view No observ ation record ed. [address], [place], [address], 01/24/2024 10:59:38 01/24/2001/21/2024 US, malia x, varsha s, extre mity, compl ete No observ ation record ed. [address], [place], [address], 01/24/2024 10:59:38 Result Notes None recorded. Problems Name Problem SNOMED Code Status Onset Date Resolution Date Notes Provider Name and Address Organization Details Recorded Time Osteoart hritis of knee 396286542 Active 2021 BERTA ERICKSON MD Attn: Luis mauro,[address] [place], [address], [place] [facility] 17:06:16 Influenz a vaccinat ion declined 422193325 Active 2021 Jonas Carreno MD Attn: Luis mauro,[address] [place], [address] [facility] 14:54:17 SARS-CoV -2 antigen vaccine declined 3333936210 Active 2021 Jonas Carreno MD Attn: Luis mauro,[address] [place], [address] 14:54:19 Anemia 504352669 Completed 202110/14/2023 BERTA ERICKSON MD Attn: Luis mauro,[address] [place], [address], [place] [facility] 4 10:22:49 Iron deficien cy anemia 58643063 Active 2022 BERTA ERICKSON MD Attn: Luis mauro,[address] [facility], [place], [address], [place] [facility] 3 11:10:41 Vitamin D deficien cy 83662778 Active 2022 BERTA ERICKSON MD Attn: Luizsenia mauro,[address] [facility], [place], [address], [place] [facility] 3 23:11:50 Menorrha zelalem 826481986 Active 2023 BERTA ERICKSON MD Attn: Luizsenia mauro,[address] [facility], [place], [address], [place] [facility] 4 10:22:44 Deep venous thrombos is 062591677 Active 2023 BERTA ERICKSON MD Attn: Luizsenia mauro,[address] [facility], [place], [address], [place] [facility] 4 10:23:02 Uses IUD (intraut erine device) contrace ption [id number] Active 2023 Mirena placed 10/14/23 for manageme nt of heavy menstrua l bleeding BERTA ERICKSON MD Attn: Luis nj,[address] [place], [address], [place] [facility] 4 10:36:45 Chronic back pain [id number] Active 2023 BERTA ERICKSON MD Attn: Luis mauro,[address] [facility], [place], [address], [place] [facility] 4 17:06:13 Problem Notes None recorded. Procedures Surgical History Date Name Laterality Status Provider Name and Address Organization Details Recorded Time 4 Control Implant Removal completed BERTA ERICKSON MD Attn: [address]ing[address] [place], [address], [place] [facility] 10/14/2023 10:22:04 4 IUD Insertion completed BERTA ERICKSON MD Attn: Accounting[address] [facility], [place], [address], [facility] 10/14/2023 09:47:21 6 delivery completed Abimbola Bruce [place] [facility] 01/19/2022 14:25:15 Imaging Results None recorded. Procedure Notes None recorded. Medical Equipment None Reported. Allergies Allergen ID Allergen Name Allergen Category Reaction Reaction Severity Criticality Documentation Date Start Date Code Code System Note Provider Name and Address Organization Details Recorded Time 198825 Bactrim medicatio n vomiting moderate Not available 01/19/2022 08669 9 RxNorm Abimbola Bruce [place] null, [place] - [facility] 14:23:53 Medications Name Sig Start Date Stop Date Status Note LastModified by Organization Details LastModified Time cyclobenzap rine 10 mg tablet TAKE 1 TABLET BY MOUTH THREE TIMES DAILY NEEDED FOR MUSCLE SPASM (LEG AND BACK PAIN) FOR UP TO 14 DAYS active Not Available Not Available No t Available amoxicillin 500 mg capsule TAKE 1 CAPSULE BY MOUTH EVERY 8 HOURS 01/19 completed Not Available Not Available Not Available Mirena 21 mcg/24 hr (up to 8 years) 52 mg intrauterin e device Take 1 device by intrauter ine route. 2023 active Not Available Not Available Not Avai lable Iron (ferrous sulfate) 325 mg (65 mg iron) tablet Take 1 tablet every other day by oral route for 30 days. 2023 active Not Available Not Available Not Avai lable ibuprofen 800 mg tablet TAKE 1 TABLET BY MOUTH EVERY 8 HOURS WITH MEALS FOR 10 DAYS 09/29 completed Not Available Not Available Not Available benzonatate 200 mg capsule TAKE 1 CAPSULE BY MOUTH THREE TIMES DAILY NEEDED FOR COUGH FOR UP TO 10 DAYS 05/29 completed Not Available Not Available Not Available prednisone 20 mg tablet TAKE 2 TABLETS BY MOUTH ONCE DAILY FOR 3 DAYS THEN TAKE 1 & 1/2 (ONE & ONE-HALF) TAB ONCE DAILY FOR 3 DAYS THEN TAKE 1 TAB ONCE DAILY FOR 3 DAYS THEN TAKE 1/2 (ONE-HALF ) TAB ONCE DAILY FOR 3 DAYS 02/01 completed Not Available Not Available Not Available penicillin V potassium 500 mg tablet TAKE 1 TABLET BY MOUTH TWICE DAILY FOR 10 DAYS 12/27 completed Not Available Not Available Not Available metronidazo le 500 mg tablet Take 1 tablet twice a day by oral route for 7 days. 12/27 completed Not Available Not Available Not Available meclizine 25 mg tablet 12/27 completed Not Available Not Available Not Available oseltamivir 75 mg capsule TAKE 1 CAPSULE BY MOUTH TWICE DAILY FOR 5 DAYS 05/29 completed Not Available Not Available Not Available dexamethaso ne 4 mg tablet 05/29 completed Not Available Not Available Not Available lidocaine 5 % topical patch APPLY 1 PATCH TOPICALLY ONCE DAILY MAY WEAR UP TO 12 HOURS 05/29 completed Not Available Not Available Not Available omeprazole 20 mg capsule,del ayed release TAKE 1 CAPSULE BY MOUTH ONCE DAILY 01/19 completed Not Available Not Available Not Available hydroxyzine HCl 25 mg tablet Take 1 tablet 3 times a day by oral route as needed, for anxiety and insomnia. 05/29 completed Not Available Not Available Not Available ergocalcife rol (vitamin D2) 1,250 mcg (50,000 unit) capsule Take 1 capsule every week by oral route. 05/29 completed Not Available Not Available Not Available methylpredn isolone 4 mg tablets in a dose pack TAKE BY MOUTH DIRECTED ON INSIDE OF PACKAGE 05/29 completed Not Available Not Available Not Available ondansetron 4 mg disintegrat ing tablet 12/27 completed Not Available Not Available Not Available naproxen 500 mg tablet 05/29 completed Not Available Not Available Not Available diazepam 5 mg tablet 12/27 completed Not Available Not Available Not Available amoxicillin 875 mg-potassiu m clavulanate 125 mg tablet TAKE 1 TABLET BY MOUTH EVERY 12 HOURS FOR 10 DAYS 12/27 completed Not Available Not Available Not Available oxycodone 5 mg tablet TAKE 1 TABLET BY MOUTH EVERY 6 TO 8 HOURS NEEDED FOR 5 DAYS (FOR BREAKTHRO UGH PAIN) 05/29 completed Not Available Not Available Not Available nitrofurant oin monohydrate /macrocryst als 100 mg capsule TAKE 1 CAPSULE BY MOUTH EVERY 12 HOURS FOR 5 DAYS MUST TAKE WITH FOOD OR MEAL 11/10 completed Not Available Not Available Not Available duloxetine 30 mg capsule,del ayed release TAKE 1 CAPSULE BY MOUTH ONCE DAILY FOR CHRONIC PAIN 05/29 completed Not Available Not Available Not Available ibuprofen 12/27 completed Not Available Not Available Not Available Tylenol 12/27 completed Not Available Not Available Not Available Eliquis 5 mg tablet TAKE 1 TABLET BY MOUTH TWICE DAILY active Not Available Not Available No t Available Eliquis DVT-PE Treatment 30-Day Starter 5 mg (74 tablets) in dose pack 05/29 completed Not Available Not Available Not Available Vitals Date Recorded Body height Body mass index (BMI) Body weight Oxygen saturation Oxygen saturation in Arterial blood by Pulse oximetry Heart rate Systolic And Diastolic Provider Name and Address Organization Details Last Updated DateTime 5 182.88 cm 50.3 kg/m2 416414. 47 g 99 % 99 % 82 /min 142/85 mm[Hg] Vandana Blanco MA [facility] 5 12:24:16 Date Recorded Body height Body mass index (BMI) Body weight Oxygen saturation Oxygen saturation in Arterial blood by Pulse oximetry Heart rate Body temperature Systolic And Diastolic Provider Name and Address Organization Details Last Updated DateTime 4 182.88 cm 48.8 kg/m2 402094. 95 g 98 % 98 % 67 /min 98.3 [degF] 129/85 mm[Hg] Mali Patelford [facility] 4 12:12:41 Date Recorded Body height Body mass index (BMI) Body weight Oxygen saturation Oxygen saturation in Arterial blood by Pulse oximetry Body temperature Heart rate Systolic And Diastolic Provider Name and Address Organization Details Last Updated DateTime 4 182.88 cm 49.5 kg/m2 056983. 22 g 98 % 98 % 98.1 [degF] 72 /min 118/77 mm[Hg] Mali Patelford [facility] 4 11:49:18 Date Recorded Body height Body mass index (BMI) Body weight Oxygen saturation Oxygen saturation in Arterial blood by Pulse oximetry Heart rate Body temperature Systolic And Diastolic Systolic And Diastolic Provider Name and Address Organization Details Last Updated DateTime 4 182.88 cm 49.5 kg/m2 012067. 22 g 98 % 98 % 80 /min 98.6 [degF] 123/47 mm[Hg] 120/80 mm[Hg] Vandana Blanco [place] - [facility] 4 15:06:01 Date Recorded Body height Body mass index (BMI) Body weight Oxygen saturation Oxygen saturation in Arterial blood by Pulse oximetry Heart rate Body temperature Systolic And Diastolic Provider Name and Address Organization Details Last Updated DateTime 4 182.88 cm 50.2 kg/m2 803744. 98 g 98 % 98 % 86 /min 98.1 [degF] 121/85 mm[Hg] Mali De Oliveira [place] [facility] 4 16:56:29 Social History Question Answer Notes LastModified by Organizat ion Details LastModified Time Tobacco Smoking Status Former Smoker quit 07/2023 Mali De Oliveira [place] null, [place] [facility] 09/30/2023 16:45:10 Are You Blind Or Do You Have Difficulty Seeing? No Information not available 01/19/2022 What Is Your Level Of Caffeine Consumption? Moderate Information not available 04/05/2023 In The 14 Days Before Symptom Onset, Have You Had Close Contact With A Laboratory-confir med COVID-19 While That Case Was Ill? No Information not available 07/06/2022 In The 14 Days Before Symptom Onset, Have You Had Close Contact With A Person Who Is Under Investigation For COVID-19 While That Person Was Ill? No Information not available 07/06/2022 Have You Been To An Area Known To Be High Risk For COVID-19? No Information not available 07/06/2022 Are You Deaf Or Do You Have Serious Difficulty Hearing? No Information not available 01/19/2022 What Type Of Diet Are You Following? REGULAR Information not available 01/19/2022 Are There Any Guns Present In Your Home? No Information not available 07/06/2022 What Was The Date Of Your Most Recent Tobacco Screening? 05/29/2024 Information not available 05/29/2024 How Many Children Do You Have? 2 Information not available 07/06/2022 What Is Your Current Pack Years? 10-19paimelda rs Information not available 07/06/2022 Do You Use Protection During Sex? Usually Information not available 07/06/2022 What Is Your Relationship Status? Single Information not available 07/06/2022 Do You Use Your Seat Belt Or Car Seat Routinely? Yes Information not available 01/19/2022 Are You Sexually Active? Yes Information not available 07/06/2022 Do You Have Smoke And Carbon Monoxide Detectors In Your Home? Yes Information not available 01/19/2022 At What Age Did You Start Smoking Tobacco? 18 Information not available 01/19/2022 Are You Passively Exposed To Smoke? Yes Information no t available 07/06/2022 How Much Tobacco Do You Smoke? No Information not available 09/30/2023 Do You Use Sunscreen Routinely? Yes Information not available 07/06/2022 Has Tobacco Cessation Counseling Been Provided? No Information not available 09/30/2023 On What Date Was Tobacco Cessation Counseling Provided? 10/14/2023 Information not available 10/14/2023 Sex: Female Functional Status Question Answer Note LastModified by Organizat ion Details LastModified Time Do you use any illicit or recreational drugs? Yes MJ sometimes when stressed Information not available 10/14/2023 Do you or have you ever used any other forms of tobacco or nicotine? No Information not available 04/05/2023 What is your level of alcohol consumption? None Information not available 01/19/2022 Are you currently employed? No Information not available 07/06/2022 Are you able to care for yourself? Yes Information not available 01/19/2022 What is your exercise level? Occasional Walking Information not available 07/06/2022 Mental Status Question Answer Note LastModified by Organization D etails LastModified Time Do you feel stressed (tense, restless, nervous, or anxious, or unable to sleep at night)? [id number] Information not available 07/06/2022 Family History Relationship Description Onset Age of this Age Resolved Age Notes LastModified by Organization Details LastModified Time Father Diabetes mellitus hdoverma Not available 2021 14:26:01 Mother Arthritis hdoverma Not availabl e 01/19/2022 14:26:07 Mother Tuberculosis hdoverma Not avail able 01/19/2022 14:26:26 Maternal Grandmother Family history of breast cancer hdoverma Not available 2021 14:27:00 Paternal Grandmother Malignant tumor of breast hdoverma Not available 2021 14:27:21 Medical History Condition Response Coronary Artery Disease N Other N Atrial Fibrillation N High Blood Pressure N Kidney or Bladder Problems N Thyroid Problems N GI Problems N Depression N COPD N Blood Clots N Skin Problems N Anemia N Heart Attack (CO) N Anxiety Disorder N Diabetes N Muscle, Joint, or Bone Problems Y Seizures/Epilepsy N Acid Reflux (GERD) N Cancer N Stroke N Asthma N Allergies N High Cholesterol N Hepatitis N Liver Disease N Headaches N Heart Failure N Osteoporosis N Gynecological History Statement/Question Response Flow Light Date of LMP 12/25/2023 Menses Monthly Y Duration of Flow (days) 5 Age at Menarche 15 Current Control Method IUD Age at First Child 23 LMP Approximate Obstetrics History GPAL:G 3 P 0 0 2 2 Type Value Spontaneous 2 Living 2 Total 3 Immunizations Vaccine Type Date Status Note Provider Nam e and Address Organization Details Recorded Time Tdap 03/14/2015 completed Jonas Carreno MD Attn: [address] [place], [address], [facility] 02/22/2022 13:06:44 Past Encounters Encounter ID Performer Location Encounter Start Date Encounter Closed Date Diagnosis/Indication Diagnosis SNOMED-CT Code Diagnosis ICD10 Code Diagnosis Note [id number] [facility] [address] [place] [address] 01/19/2022 14:11:30 01/20/2022 09:33:25 General examination of patient 200064245 Z00.01 Body mass index 40+ - severely obese 038553097 Z68.41 Influenza vaccination declined 371764938 Z28.21 SARS-CoV-2 antigen vaccine declined 6955466496 Z28.21 Osteoarthr itis of knee 046244598 M17.9 [id number] MD Anahi Roberson (Adult Med) [address] [place] [address] 02/22/2022 12:40:30 02/23/2022 14:54:49 Follow-up visit 736891291 Z09 Osteoarthr itis of knee 307372700 M17.9 Anemia 620024884 D64.9 Abnormal urinalysis 1672 81842 R82.90 Body mass index 40+ - severely obese 185000123 Z68.41 [id number] MD Yaneli EDOUARD (COURSEWARE DEVELOPER) [address] [place] [address] 07/06/2022 11:34:24 07/08/2022 11:21:24 Screening for malignant neoplasm of cervix 575153885 Z12.4 - f/u outside clinic records for Pap result from 2021 Body mass index 40+ - severely obese 905811496 Z68.42 - Discussed healthy behaviors, including eating a balanced diet and incorporat ing regular physical activity into day- Will screen for diabetes with A1c Adult [facility] th examination 912296245 Z00.00 - Reviewed risks for cardiovasc ular disease, infection, and cancer; ordered screening tests as appropriat e Microcytic anemia 054051 007 D50.9 - Noted on labs in 2021- f/u CBC, ferritin, and iron studies Pruritus of vagina 04743 003 L29.3 - f/u NuSwab; will treat as indicated by results [id number] MD Johnnie Roman 14 IM 4 [facility] [address] [place] [phone] 12/27/2022 10:56:09 12/28/2022 14:51:41 Venereal disease screening 134293373 Z11.3 exposed to STIs and unprotecte d sex Discussed safe sex practices - consistent condom use - how to put on a condom.Dis cussed risks of unprotecte d sex. Spent time discussing PID and how infections can ascend from vaginal area into kidneys and into pelvis causing scarring with associated fertility risks. Pt demonstrat es a clear understand ing without further questions or concerns at this time.HPV vaccine update. hivrprHbsA gnuswabHCV [id number] MD Yaneli EDOUARD (COURSEWARE DEVELOPER) [address] [place] [address] 04/05/2023 17:20:55 04/14/2023 08:31:58 Menorrhagia 266570852 N92.0 N94.6 - DDx: polyp vs adenomyosi s vs leiomyoma vs malignancy and hyperplasi a vs bleeding/c lotting disorder (e.g. von Willebrand disease) vs PCOS vs thyroid disease vs iatrogenic - Will evaluate for thyroid disease and bleeding/c lotting disorders with labs- Will start workup for structural causes with pelvic US- Ordered pelvic US to evaluate for fibroids- Discussed referral to gynecology for laparascop ic procedure to evaluate for endometrio sis if pelvic US is negative- Recommende d use of ibuprofen 800 mg every 8 hours with food, heating pad/hot baths, TENS unit as needed for pain Surveillan ce of subcutaneous contraceptive implant 706615299 Z30.46 - Palpable in left upper arm Iron defic iency anemia 52147230 D50.9 - History of anemia- f/u CBC, iron studies; will treat as indicated by results [id number] BERTA ERICKSON MD [facility] (COURSEWARE DEVELOPER) [address] [place] [address] 09/30/2023 16:32:45 10/13/2023 12:53:24 Deep venous thrombosis of lower extremity 824864989 I82.412 - On Eliquis- DVT seems to be unprovoked , with unclear FHx of thrombophi jenny; referred to hematology for further evaluation and treatment Osteoarthr itis of knee 890294102 M17.9 M25.569 - Analgesic options limited due to DOAC use- Continue Tylenol as needed. Will add lidocaine patches PRN. Advised patient to talk with pharmacist about topical diclofenac gel. Iron defic iency anemia 90320389 D50.9 - Due to menorrhagi a- Previously did not respond to oral iron- Referred to hematology as above; anticipate need for iron infusions Menorrhagia 665358151 N9 2.0 N94.6 - DDx: polyp vs adenomyosi s vs leiomyoma vs malignancy and hyperplasi a vs bleeding/c lotting disorder (e.g. von Willebrand disease) vs PCOS vs thyroid disease vs iatrogenic - Labs negative for thyroid disease, PCOS- Pelvic ultrasound previously ordered 03/2023 but not completed- Previously discussed referral to gynecology for laparascop ic procedure to evaluate for endometrio sis if pelvic US is negative- Recommende d Mirena for management of bleeding and removing Nexplanon. Patient to schedule these procedures at earliest availabili ty. [id number] MD Yaneli EDOUARD (COURSEWARE DEVELOPER) [address] [place] [address] 10/14/2023 08:53:49 10/21/2023 10:56:13 Menorrhagia 943579859 N92.0 N94.6 - DDx: polyp vs adenomyosi s vs leiomyoma vs malignancy and hyperplasi a vs bleeding/c lotting disorder (e.g. von Willebrand disease) vs iatrogenic - Labs negative for thyroid disease, PCOS- Pelvic ultrasound previously ordered 03/2023 but not completed- Previously discussed referral to gynecology for laparascop ic procedure to evaluate for endometrio sis if pelvic US is negative- Mirena placed and Nexplanon removed on 10/14/23 for management of bleeding Deep venou s thrombosis of lower extremity 761710118 I82.412 - DVT seems to be unprovoked , with unclear FHx of thrombophi jenny; referred to hematology for further evaluation and treatment- On Eliquis. 30-day Starter pack picked up 09/28/23; prescribed refill for next 2 months [id number] MD Yaneli EDOUARD (COURSEWARE DEVELOPER) [address] [place] [address] 11/11/2023 10:43:19 11/18/2023 12:25:27 Uses IUD (intrauterine device) contraception 514223839 Z97.5 - IUD in place with strings noted from cervical os- f/u as needed or when IUD is due for removal/re placement Osteoarthr itis of knee 897670202 M17.9 M25.569 - Analgesic options limited due to DOAC use- Continue Tylenol as needed- Interested in physical therapy for crampy leg pain and chronic knee pain [id number] MD Yaneli EDOUARD (COURSEWARE DEVELOPER) [address] [place] [address] 01/06/2024 11:40:35 01/14/2024 12:20:52 Chronic back pain 581456093 G89.29 M54.9 - Patient states she has dealt with this for some time, now with recent exacerbati on of pain. On prednisone taper from ED, as well as muscle relaxant. Patient states she did not receive Clitherall Rx from pharmacy, and [facility] does not show her in the system. Advised Tylenol 650 mg every 6 hours scheduled with short course of oxycodone 5 mg q6-8 PRN for breakthrou gh pain only. Provided work note for today.- Advised physical therapy for chronic back pain, which patient was open to. Referred to PT for further evaluation and treatment. - Due to reported pain with light touch on exam, consider neuropathi c etiology vs fibromyalg ia. Suspect pain is modulated by mood and ongoing lifestress ors, so will trial duloxetine - Considerin g going on disability . Advised patient to reach out to employer or appropriat e channels.- Patient requested pain management referral; referral placed today [id number] MD Yaneli EDOUARD (COURSEWARE DEVELOPER) [address] [place] [address] 02/02/2024 11:40:03 02/06/2024 11:50:11 Pain of right knee joint 5586974057 67742 M25.561 - Pain, swelling, and abnormal right knee exam after direct trauma to right knee 2 weeks ago- Hospital right knee XR unremarkab le- Has upcoming appointmen ts with pain management and PT- Referred to ortho for further evaluation and treatment [id number] MD Yaneli EDOUARD (COURSEWARE DEVELOPER) [address] [place] [address] 02/03/2024 14:58:15 02/06/2024 12:45:06 Adult health examination 788917255 Z00.01 - Reviewed risks for cardiovasc ular disease, infection, and cancer; ordered screening tests as appropriat e- Recommende d annual flu vaccine and updated 9499-3989 COVID vaccine; patient declined Screening for malignant neoplasm of cervix 460443140 Z12.4 - Per [facility] here through [facility], patient had Pap done in 2020 but unable to review result- Due for co-testing ; collected today Microcytic anemia 205252 007 D50.0 D51.9 D52.9 - Noted on labs in 2021- Seen by hematology on 12/08/23. Reviewed note and labs collected at that visit, which showed iron, folate, and vitamin B12 deficiency . Patient received 2 Venofer infusions but had to cancel subsequent infusion appointmen ts due to transporta tion issues. Did not take folate or B12 supplement s. Will recheck CBC, ferritin, iron studies, vitamin B12, and folate levels. Results cc'd to heme/onc office. Vitamin D deficiency 347 75708 E55.9 - Vitamin D levels 11.1 in June 2022; will recheck levels Obesity 574864858 E66.81 3 Z68.42 - Provided handout on healthy lifestyle [id number] MD Yaneli EDOUARD (COURSEWARE DEVELOPER) [address] [place] [address] 02/28/2024 16:29:55 03/12/2024 11:15:52 Pain of right knee joint 1395702827 34392 M25.561 - 02/02/24: Pain, swelling, and abnormal right knee exam after direct trauma to right knee 2 weeks ago. [facility] right knee unremarkab . Has upcoming appointmen ts with pain management and PT. Referred to ortho for further evaluation and treatment. - 02/28/24: Ortho is not available until Apr 26, 2024. Will try and have patient evaluated by sports medicine before that date once car is fixed. Patient to call to notify us when she is ready to have sports medicine referral placed Mixed anxi ety and depressive disorder 468417599 F41.8 - In the past, used to take 0.5 tablet Ativan- Interested in therapy to discuss current stressors. Referred to counseling for further evaluation and treatment. Will add hydroxyzin e 25 mg TID PRN for anxiety and insomnia. [id number] MD Yaneli EDOUARD (COURSEWARE DEVELOPER) [address] [place] [address] 05/29/2024 12:16:01 06/05/2024 15:54:25 Osteoarthritis of knee 029866353 M17.9 M25.569 - Continue Tylenol, heating pad, and Voltaren gel as needed- Will wait on starting oral NSAIDs, as patient may need to restart DOACs for history of DVT and unclear history of hypercoagu ability- Referred to orthopedic surgery for further evaluation and treatment. May benefit from knee injections . Iron defic iency anemia 33838809 D50.9 - Due to menorrhagi a- Improved after iron infusions x2; prescribed oral iron but not taking any longer- f/u CBC, iron studies, ferritin Deep venou s thrombosis 348895900 Z86.718 - History of DVT in September 2023- Was told she could stop her Eliquis during recent ED visit- Recommend following up with hematologi st regarding need for long-term DOAC use with unclear FHx of hypercoagu ability Elevated blood-pressure reading without diagnosis of hypertension 014667700 R03.0 - Likely secondary to pain vs stress. Previously normal BP. Health Concerns Section Related Observation LastModified by Organization Detai ls LastModified Time None Recorded Concern Status LastModified by Organization Details LastModified Time None Recorded Advance Directives Directive None Recorded Payers Insurance Date Sequence Insurance Name Policy Number Policy Velásquez Covered Member ID Velásquez Member ID Guarantor Name 06/05/2024 1 [employer] [place] ON OR AFTER 2020 (MEDICAID REPLACEMENT - HMO) Vanessa Olmos [id number] Vanessa Olmos 01/19/2022 1 *SELF PAY* As cristina Olmos Notes Date Note Type Note Provider Name and Address Organization Details Recorded Time 01/06/2024 text/html Back pain- The o ther night, 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 [place] like someone stabbing in back.- Has had pain from back of neck down. Feels like pain is getting worse.- Has been taking Tylenol without much relief- States ED gave her a muscle relaxant and steroid- Went to ED on 01/02 and was discharged with Flexeril, prednisone, and Clitherall. Has been taking prednisone. [facility] did not receive Clitherall from pharmacy. Flexeril makes her sleepy, so takes it at bedtime. Will be able to sleep for 4 hours then wakes up in pain.- Has been doing well with physical therapy for knees but has not been able to go for past week due to not having transportation. Continuing to do home exercises. BERTA ERICKSON MD Attn: Accounting,[address] [facility], [place], [address], [place] [facility] 01/06/2024 17:07:54 02/02/2024 text/html Right knee injur y- 2 weekends ago, had son and puppy at home. Was stepping over a barricade she had covering the doorway, foot caught on barricade, and patient fell directly on knees with most of the weight falling on right knee. Tried to ice knee but wasn't improving, so went to ED the next day. Had imaging done and was told there wasn't anything wrong with it.- Doesn't feel like knee is getting any better over past 2 weeks. Has tried elevating legs or putting pillow between knees, but pain makes it difficult to sleep.- Feels like legs are on fire and feels like someone is drilling into the knee- Sometimes feels like knee is catching, locking, and popping. Sometimes feels like knee is going to give out.- Right knee swelling has not subsided- Was off of work due to knee injury but went back to work early after boyfriend lost his job- Has trouble walking on right knee, bending knee. Has difficulty even putting on jeans. States it feels like it is suffocating her knee. Other chronic pain/discomforts- Legs go numb when sitting for too long. Thighs down feel like an excruciating numb and throbbing in legs.- Has difficulty bending over without back being in pain- Had to reschedule pain management appointment to 02/20. Missed 01/31 appointment due to lack of transportation- Also has upcoming appointment for commissioning specialist- Has appointment with physical therapists Martha and Sandi on 02/13 BERTA ERICKSON MD Attn: [facility],[address] [place], [address], [facility] - [facility] 02/02/2024 13:41:16 02/03/2024 text/html Annual wellnessConcerns today- None Cardiovascular risk- HTN: No known FHx. High blood pressure with in 2013.- DM2: FHx in father.- HLD: FHx in father.- Personal history of CO, CVA? No- Family history of CO, CVA? FHx of CO x2 in mother, in her 50s. Infection risk- Prior testing for HIV? Yes - neg in 2021- Prior testing for HepC? Yes - neg in 2021- History of STIs? Trichomonas- Currently having unprotected sex? Yes - with one partner- Vaccines due? flu, COVID Plans for - Miryvonne placed 10/14/23 Cancer screenings- Breast cancer: FHx in paternal and maternal grandmothers.- Cervical cancer: [facility] [place] in 2020 per [facility]where- Colon cancer: No known FHx.- Lung cancer: Former smoker, quit 07/2023 (age 33). BERTA ERICKSON MD Attn: Accounting, [address] [facility], [place], [address], [facility] - [facility] 02/03/2024 15:38:27 02/28/2024 text/html Knee concerns- T ome (PT) is concerned about patient's inability to bend knees. Have not been able to do certain stretches.- A couple of days ago, has noticed her knees, especially her right leg feels like something is out of place. Has been needing to pop right knee.- Was referred to ortho on 02/02/24 but has not been able to be reached due to new phone. Current phone number is [phone]- PT gave her a knee sleeve, but it is not helping- Has also tried lidocaine patches on right knee, which does not help BERTA ERICKSON MD Attn: Accounting, [address] [facility], [place], [address], [facility] - [facility] 03/09/2024 13:53:53 05/29/2024 text/html Chronic leg painChronic leg swelling- Cannot sit, stand, stretch out or bend legs fully when swollen- Cannot keep a job because of leg swelling the day after. Has worked at [employer].- Pain from bra line down to legs- Has worse back pain- Has tried yoga, simple exercises at home, heating pad, ice packs with minimal relief. Naproxen did not help with pain. Sometimes uses Voltaren gel.- Ice packs helps reducing pain for 30 minutes but then pain returns- Knee pain getting worse since falling on knee in January 2024- Worried about knees bending inward over time- Only pain medicine that seems to help is hydrocodone but is afraid of taking medicine due to side effects of drowsiness when working- Has been frustrated with process of getting SSI BERTA ERICKSON MD Attn: Accounting,[address], [place], [address], [place] [facility] 05/29/2024 17:58:46 OBGyn Episode Ob Episode Information Episode Created Date Number of Fetuses Patient Bloodtype Patient rh Status Prepregnancy Weight lbs Domestic Partner Domestic Partner Phone Father Name Hand Tacker Status 07/07/19 23 1 CLOSED Fetus Data First Name Last Name Admitted to NICU Weight (g) Sex Living Outcome Pediatric Complications Fetus ID Race Codes Race Delivery Type M Full Term [id number] Primary Juan Diego Calculation Initial Juan Diego Date Initial Exam Date Initial Exam Provider Initial Ultrasound Date Last Menstrual Period Date Ultra Sound Weeks Gestation 0 Eighteen To Twenty Week Juan Diego Update Ultra Sound Date Fundal Height At Umbil Quickening Date Ultra Sound Latest Weeks Gestation Final Juan Diego Confirmed By Final Juan Diego Confirmed Date Final Juan Diego Date Ultra Sound Latest Days Gestation 0 0 Menstrual History Last Menstrual Date Menses Monthly On Bcp Conception Prior Menses Frequency Hcg Plus Date Menarche Onset Age Delivery Information Delivery Date Delivery Type Labor Anesthesia Weeks Gestation Incision Type Labor Labor Length Hrs Delivered By Post Complications Tubal Sterilization Discharge Date Comments 6 emergenc y due to cord prolapse after AROM Discharge Information Feeding Method Contraceptive Method Maternal HG B and HCT Levels Ob Episode Information Episode Created Date Number of Fetuses Patient Bloodtype Patient rh Status Prepregnancy Weight lbs Domestic Partner Domestic Partner Phone Father Name Hand Tacker Status 07/07/19 23 1 CLOSED Fetus Data First Name Last Name Admitted to NICU Weight (g) Sex Living Outcome Pediatric Complications Fetus ID Race Codes Race Delivery Type F Full Term [id number] Vaginal Juan Diego Calculation Initial Juan Diego Date Initial Exam Date Initial Exam Provider Initial Ultrasound Date Last Menstrual Period Date Ultra Sound Weeks Gestation 0 Eighteen To Twenty Week Juan Diego Update Ultra Sound Date Fundal Height At Umbil Quickening Date Ultra Sound Latest Weeks Gestation Final Juan Diego Confirmed By Final Juan Diego Confirmed Date Final Juan Diego Date Ultra Sound Latest Days Gestation 0 0 Menstrual History Last Menstrual Date Menses Monthly On Bcp Conception Prior Menses Frequency Hcg Plus Date Menarche Onset Age Delivery Information Delivery Date Delivery Type Labor Anesthesia Weeks Gestation Incision Type Labor Labor Length Hrs Delivered By Post Complications Tubal Sterilization Discharge Date Comments 4 Inductio n for elevated BPs Discharge Information Feeding Method Contraceptive Method Maternal HG B and HCT Levels
--- OUTSIDE RECORDS SUMMARY | 2024-10-03 21:50 | XMS_ITS | Clinical Summary ---
Author Organization [facility] [address] Address [address] [place] [address] Care Team Providers Care Tuber Machine Cutter Name Role Phone Jonas Carreno MD Primary Care Provider Maria Del [address]en [address] HAND STRIPER Unavailable [phone] Allergies Active Allergy Reactions Criticality Noted Date [...] Immunization Administration Dates Next Due Tdap 03/14/2015 Surgical History Surgery Date Site/Laterality Comments SECTION Medical History Medical History Date Comments Osteoarthritis Family History Medical History Relation Name Comments Osteoarthritis Mother Relation Name Status Comments Mother Social History Tobacco Use Types Packs/Day Years [...] on file 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 Gender Identity Not on file Sexual Orientation Not on file Obstetrics History Last Filed Vital Signs Vital Sign Reading [...] 11/10/2022 11:08 AM CDT Plan of Treatment Health Maintenance Due Date Last Done Comments Cervical Cancer Screening 1992 Depression Screening 1992 Hepatitis C Screening 1992 Varicella Vaccines (1 of 2 - 13+ 2-dose series) 02/20/2005 Hepatitis B Screening 02/20/2010 Regular Well Visit/Exam 18-64 02/20/2010 Pneumococcal vaccine <65 (1 of 2 - PCV) 02/20/2011 Influenza Vaccine (Season Ended) 2024 DTaP/Tdap/Td Vaccine (2 - Td or Tdap) 03/14/2025 03/14/2015 HPV Vaccines Aged Out No longer eligi ble based on patient's age to complete this topic [place] Care Teams Tuber Machine Cutter Relationship Specialty Start Date End Date Jonas Carreno MD [address] [place] [address] PCP - General Internal Medicine 02/16/[address] NP [address] [place] [address] Nurse Practitioner Orthopedic Surgery 02/16/22
--- OUTSIDE RECORDS SUMMARY | 2024-10-03 21:50 | XMS_ITS | Clinical Summary ---
Author Organization [facility] Address [address] [place] [address] Phone Care Team Providers Care Regulatory Attorney Name Role Phone Berta Erickson MD Primary Care Provider [phone] Allergies Active Allergy Reactions Criticality Noted Date Comments Sulfamethoxazole-Trimethoprim Rash 2023 Medications apixaban (Eliquis) 5 MG Tablet Take 5 mg by mouth 2 times daily. Active HYDROcodone-evelia taminophen (NORCO) 5-325 MG TabletIndicatio ns:Bilateral leg pain Take 1-2 Tablets by mouth every 4 hours as needed for Moderate or more severe pain. 12 Tablet 01/04/2024 Active naproxen (NAPROSYN) 500 MG Tablet Take 1 Tablet by mouth 2 times daily as needed for Mild or more severe pain. 20 Tablet 01/18/2024 Active methylPREDNISol one (MEDROL DOSPACK) 4 MG Tablet Therapy Pack See product package insert for dosing schedule 21 Tablet 03/25/2024 Active methylPREDNISol one (MEDROL DOSPACK) 4 MG Tablet Therapy Pack See product package insert for dosing schedule 21 Tablet 03/25/2024 Active Active Problems Problem Noted Date Diagnosed Date Deep vein thrombosis (DVT) o f femoral vein of left lower extremity 12/08/2023 Menorrhagia with regular cycle 12/08/2023 Anemia 12/08/2023 Iron deficiency anemia 07/08/2022 Social History Tobacco Use Types Packs/Day Years Used Date Smoking Tobacco: Never Smokeless Tobacco: Never Tobacco Cessation:Counseling Given: Not Answered Alcohol Use Standard Drinks/Week Comments Never 0 (1 standard drink = 0.6 oz pur e alcohol) Comments Unknown Sex and Gender Information Value Date Recorded Sex Assigned at Not on file Legal Sex Female 7:28 AM CDT Gender Identity Not on file Sexual Orientation Not on file Last Filed Vital Signs Vital Sign Reading Time Taken Comments Blood Pressure 140/88 05/23/2024 12:25 PM CDT Pulse 88 05/23/2024 11:17 AM CDT Temperature 36.6 C (97.9 F) 05/23/2024 11:17 AM CDT Respiratory Rate 16 05/23/2024 11:1 7 AM CDT Oxygen Saturation 100% 05/23/2024 11: 17 AM CDT Inhaled Oxygen Concentration - - Weight 169.6 kg (373 lb 14.4 oz) 2024 11:17 AM CDT Height 180.3 cm (5' 11) 05/23/2024 11: 17 AM CDT Body Mass Index 52.15 05/23/2024 11:17 AM CDT Plan of Treatment Health Maintenance Due Date Last Done Comments Hepatitis C Virus (HCV) Screening 1992 Human Papillomavirus (HPV) Immunization (1 - 3-dose series) 02/20/2007 Hepatitis B Immunization (1 of 3 - 19+ 3-dose series) 02/20/2011 Pap Smear 02/20/2013 Cervical Cancer Screening (CCS) 02/20/2022 HPV/Cotest 02/20/2022 SARS-COV-2 Immunization ( - 2023- season) 2023 Influenza Immunization (#1) 2024 Respiratory Syncytial Virus (RSV) Immunization (Adult) (1 - 1-dose 75+ series) 02/20/2067 TdaP Immunization Completed 03/14/2015 Meningococcal Immunization (ACWY) Aged Out No longer eligible based on patient's age to complete this topic Pneumococcal Immunization Combined Aged Out No longer eligible based on patient's age to complete this topic Rotavirus Immunization Aged Out No lo nger eligible based on patient's age to complete this topic Insurance MEDICAID [facility]ETNA [facility] Care Teams Regulatory Attorney Relationship Specialty Start Date End Date Berta Erickson MD [address] [place] [address] PCP - General Family Medicine 12/06/23
--- OUTSIDE RECORDS SUMMARY | 2024-10-03 21:50 | XMS_ITS | Data Portability ---
Author Organization [facility] [place] Address [address] [place] [address] Assessment No assessment recorded. Plan of Treatment Reminders Order Date Submit Date Provider Last Modified By Organization Details Last Modified Time Details Appointments None record ed. Lab None record ed. Referral None record ed. Procedures None record ed. Surgeries None record ed. Imaging None record ed. Medication Orders None record ed. Patient TargetsNo targets recorded. Patient Instructions Encounter Date Encounter Id Patient Instructions Last Modified By Organization Details Last Modified Time 04/16/2020 [id number] learning about control [email or web address] Not available 04/29/2020 13:12:11 surgical trays* layran Not available 11/06/2020 12:18:31 surgical trays* layran Not available 11/06/2020 12:18:31 Reason for Referral None Reported. Results Created Date Observation Date Name Description Value Unit Range Abnormal Flag Note LastModifiedBy Organization Detail LastModifiedTime 04/16/19 21 04/16/2020 pregn sony test, urine HCG negati ve Not Available [facility] [address], [place], [address], 04/16/2020 10:15:42 Result Notes None recorded. Procedures Surgical History Date Name Laterality Status Provider Name and Address Organization Details Recorded Time 1 Nexplanon Insert completed Maryjane Orantes [facility] 04/29/2020 13:09:26 1 Nexplanon Removal completed Maryjane Orantes [facility] 04/29/2020 13:09:52 1 Date of Last Pap Smear completed Gena Felix [facility] 04/14/2020 12:18:20 6 emergency section completed Gena Doran [facility] 04/14/2020 12:21:05 Imaging Results None recorded. Procedure Notes None recorded. Medical Equipment None Reported. Allergies No known drug allergies Medications Name Sig Start Date Stop Date Status Note LastModified by Organization Details LastModified Time amoxicillin 500 mg capsule TAKE 1 CAPSULE BY MOUTH TWICE DAILY FOR 10 DAYS active Not Available Not Available No t Available methylpredn isolone 4 mg tablets in a dose pack TAKE BY MOUTH DIRECTED ON INSIDE OF PACKAGE active Not Available Not Available No t Available amoxicillin 875 mg-potassiu m clavulanate 125 mg tablet TAKE 1 TABLET BY MOUTH EVERY 12 HOURS active Not Available Not Available No t Available Nexplanon 68 mg subdermal implant Inject by subcutane ous route. 2020 active Removal on 04/16/19 24 Not Available Not Available Not Available Vitals Date Recorded Body height Body mass index (BMI) Body weight Systolic And Diastolic Provider Name and Address Organization Details Last Updated DateTime 04/14/2020 172.72 cm 50.5 kg/m2 568792.67 g 138/78 mm[Hg] Gena Felix [facility] 04/14/2020 12:31:12 Date Recorded Body height Body mass index (BMI) Body weight Systolic And Diastolic Provider Name and Address Organization Details Last Updated DateTime 04/16/2020 172.72 cm 50.2 kg/m2 357323.48 g 132/70 mm[Hg] Genaalo Felix [facility] 04/16/2020 10:08:35 Date Recorded Body height Provider Name an d Address Organization Details Last Updated DateTime 07/21/2020 172.72 cm Genaalo Felix [facility] 07/18/2020 14:44:42 Social History Question Answer Notes LastModified by Organizat ion Details LastModified Time Tobacco Smoking Status Never Smoker Gena Denverotilia scott [facility] 04/14/2020 12:20:29 What Is Your Level Of Caffeine Consumption? None [email or web address] Information not available 04/14/2020 Sex: Unknown Functional Status Question Answer Note LastModified by Organizat ion Details LastModified Time What is your level of alcohol consumption? None [email or web address] Information not available 04/14/2020 What is your exercise level? Occasional [email or web address] Information not available 04/14/2020 Mental Status None recorded. Family History Relationship Description Onset Age of this Age Resolved Age Notes LastModified by Organization Details LastModified Time Brother Asthma Not available 04/14/2020 12:19:55 Maternal Grandmother Malignant tumor of breast [email or web address] Not available 2020 12:20:04 Father Diabetes mellitus [email or web address] Not available 2020 12:20:15 Medical History Condition Response Allergies (Food, seasonal, environmental ) N Other N Blood Transfusion N Drug/Latex Allergies/Reactions N Breast Cancer N Dermatologic Disorders N Lung Disease N Defects or Inherited Disease N Breast Problem N Gestational Diabetes N Hematologic disorders N Anesthesia Complications N History of STI N Deep Vein Thrombosis N Polycystic ovary syndrome N Anxiety Disorder N Autoimmune disease N Arthritis N Infertility N Polyps N Acid Reflux (GERD) N History of abnormal pap N Cancer N Stroke N Varicosities N Neurologic/Epilepsy N Endometriosis N High Cholesterol N Headaches N Fibromyalgia N Kidney Disease N Heart Problems N Kidney or Bladder Problems N Thyroid Problems N GI Problems N Eating Disorder N Anemia N Art (IVF or FET) N Psychiatric Illness N Ovarian Cancer N Diabetes N Pulmonary (TB, Asthma) N Hepatitis/Liver Disease N Eczema N Urinary Tract Infection N Abuse/Domestic Violence N Asthma N Trauma/Violence N Depression/ depression N Heart Disease N Pre-Eclampsia N Hypertension N Osteoporosis N Thrombophilias N Gynecological History Statement/Question Response Date of Last Pap Smear 04/14/2020 Current Control Method Implant Desired Control Method None LMP Approximate Obstetrics History GPAL:G 2 P 2 0 0 2 Type Value Full Term 2 Living 2 Total 2 Past Encounters Encounter ID Performer Location Encounter Start Date Encounter Closed Date Diagnosis/Indication Diagnosis SNOMED-CT Code Diagnosis ICD10 Code Diagnosis Note [id number] Maryjane Orantes CNM [place] [address] [address] 04/14/2020 12:10:24 04/18/2020 17:27:19 Gynecologic examination 61422634 Z01.419 Take Calcium with Vitamin D 1200mg daily if not receiving in daily diet. It is strongly advised to have an annual flu shot and up can obtain at most pharmacies . If you have not had a TDap shot in the last 10 years you should obtain one as well. Discussed with patient & provided with informatio n regarding Gardisil vaccine to prevent the 4 strains for HPV that cause cervical cancer if under age 26. Encourage safe sexual practices, to use condoms and limit partners if not already in a monogamous relationsh ip. Do monthly self breast exams. Have mammogram yearly or every other year depending on family history. BRCA testing is now available for patients with strong genetic history of female cancer. If interested contact the office. Engage in daily exercise of low impact aerobic exercise 45-60 minutes 4-5 times weekly. Avoid tobacco and illicit drugs as well as using moderation with alcohol intake less than 1-2 8 oz beverages daily. This lifestyle behavior pattern will lead to less health conditions and longer life span. If BMI greater than 25 weight watchers or dietary consult advised. Patient received above instructio ns, and questions have been answered. If you have any questions please call or respond to this email. Patient was made aware of the patient portal and may obtain a paper copy of today's plan if desired. [facility] ion care management [id number] Z30.9 Nexplanon in since 2015. She does use condoms. Desires new nexplanon. Pt is on her cycle now. Started on the . Will return tomorrow for nexplanon removal and insertion. [id number] Maryjane Orantes CNM [place] [address] [address] 04/16/2020 10:03:38 04/16/2020 11:03:27 Removal of subcutaneous contraceptive [id number] Z30.46 Implantati on of subcutaneous contraceptive [id number] Z30.9 Patient instructed to f/u in one month or earlier if there are any si/sx of infection or hypersensi tivity at the insertion site. Health Concerns Section Related Observation LastModified by Organization Detai ls LastModified Time None Recorded Concern Status LastModified by Organization Details LastModified Time None Recorded Advance Directives Directive None Recorded Payers Insurance Date Sequence Insurance Name Policy Number Policy Velásquez Covered Member ID Velásquez Member ID Guarantor Name 07/18/2020 1 A[employer]NA [facility] ON OR AFTER 02/12/2020 (MEDICAID REPLACEMENT - HMO) Vanessa Olmos [id number] Vanessa Olmos Notes Date Note Type Note Provider Name and Address Organization Details Recorded Time 04/14/2020 text/html Annual GYNReport ed bypatient.Menstrua l cycle:Normal menses Urinary symptoms:No hematuria; No incontinence Vulva:No genital lesion Vagina:Normal vaginal discharge Breast:No breast pain; No breast lump; No nipple discharge Sexual complaints:No sexual complaints; No pain during intercourse; Normal libido Menopausal Symptoms:No menopausal symptoms; Normal vaginal lubrication Psychological symptoms:No depression; No anxiety; No PMDD Maryjane scott [facility] 04/14/2020 13:11:20 04/16/2020 text/html Patient is here currently on her menses. She was given all the r/b/a of removal and placement of the Nexplanon device and has signed the consent. She is fully aware of all possible side effects of the device and has decided to move forward with placement. Maryjane scott [facility] 04/29/2020 13:12:44 OBGyn Episode Ob Episode Information Episode Created Date Number of Fetuses Patient Bloodtype Patient rh Status Prepregnancy Weight lbs Domestic Partner Domestic Partner Phone Father Name Seismograph Operator Helper Status 04/14/19 21 1 CLOSED Fetus Data First Name Last Name Admitted to NICU Weight (g) Sex Living Outcome Pediatric Complications Fetus ID Race Codes Race Delivery Type [id number] Vaginal Delivery Juan Diego Calculation Initial Juan Diego Date [...] Complications Tubal Sterilization Discharge Date Comments 4 Discharge Information Feeding Method Contraceptive Method Maternal HG B and HCT Levels Ob Episode Information Episode Created Date Number of Fetuses Patient Bloodtype Patient rh Status Prepregnancy Weight lbs Domestic Partner Domestic Partner Phone Father Name Seismograph Operator Helper Status 04/14/19 21 1 CLOSED Fetus Data First Name Last Name Admitted to NICU Weight (g) Sex Living Outcome Pediatric Complications Fetus ID Race Codes Race Delivery Type 7600 Primary Juan Diego Calculation Initial Juan Diego [...] Complications Tubal Sterilization Discharge Date Comments 6 Emergenc y c section Discharge Information Feeding Method Contraceptive Method Maternal HG B and HCT Levels
--- OUTSIDE RECORDS SUMMARY | 2024-10-03 22:23 | XMS_ITS | Clinical Summary ---
Author Organization [facility] Address [address] [place] [address] Phone Care Team Providers Care Nurses Aide Name Role Phone Berta Erickson MD Primary Care Provider [phone] Allergies Active Allergy Reactions Criticality Noted Date [...] to complete this topic Insurance MEDICAID [facility] [facility] Care Teams Nurses Aide Relationship Specialty Start Date End Date Berta Erickson MD [address] [place] [address] PCP - General Family Medicine 12/06/23
--- OUTSIDE RECORDS SUMMARY | 2024-10-03 22:23 | XMS_ITS | Clinical Summary ---
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
--- OUTSIDE RECORDS SUMMARY | 2024-10-03 22:23 | XMS_ITS | Continuity of Care Document ---
Author Organization [facility] Address [address] [place] [address] Phone Care Team Providers Care Acquisition Specialist Name Role Phone Unavailable Unavailable Unavailable Advance Directives Directive Yes / No Effective Date File Name No Information Encounters Encounter Description Practice Location Reason(s) For Visit Diagnoses Date Provider Providers Copied on Encounter [facility], [address] [facility], [place], [place], [id number], tel:[phone] [facility] No Information [id number] No Information Referring Provider: JUDY HERNANDEZ, [address] [place] [address],[place], [address]. tel:[phone] Family History Family Member Type Diagnosis Age At Onset No Information Payers Payer name Insurance type Covered alliance party ID Authoriza tibuddy(s) AMANDAAppointmentCity [facility] [employer] [place] [id number] CI [id number] Social History Type Description Quantity Date Captured Comments Sex Female Smoking Status No Information Chief Complaint And Reason For Visit No Information History Of Present Illness Encounter Date Complaint History Of Prese nt Illness No Information Instructions Date Instruction Additional Infor mation No Information Assessments Type Assessment Date No Information
--- OUTSIDE RECORDS SUMMARY | 2024-10-03 22:23 | XMS_ITS | Referral Summary ---
Author Organization [facility] [address] Address [address] [place] [address] Care Team Providers Care Histologist Name Role Phone Jonas Carreno MD Primary Care Provider Maria Del Carmen Street SPECIMEN PREPARATION ASSISTANT Unavailable [phone] Allergies Active Allergy Reactions Criticality Noted Date [...] on file Legal Sex Female 12:29 PM UM RN Gender Identity Not on file Sexual Orientation [...] Plan of Treatment Not on file Insurance [facility] [employer]ETNA BETTER [facility] AETNA BETTER [facility] Care Teams Histologist Relationship Specialty Start Date End Date Jonas Carreno MD [address] [place] [id number] PCP - General Internal Medicine 02/16/[address] NP [address] [place] [address] Nurse Practitioner Orthopedic Surgery 02/16/22
[2024-10-03] MEDS: KETOROLAC 30 MG/ML VIAL (*BKC) IM (22:44)
[2024-10-03 22:57] VITALS: BP 145/91; PULSE 73; RESP 16; O2SAT 95
== END 2024-10-03 23:17 | disposition home or self-care (01) ==
PROVIDERS: Emergency Provider Internal Medicine Critical Care Medicine; PCP Family Medicine
DX: S93.432A Sprain of tibiofibular ligament of left ankle, initial encounter (principal); M79.672 Pain in left foot; Z86.718 Personal history of other venous thrombosis and embolism; Z87.891 Personal history of nicotine dependence; X58.XXXA Exposure to other specified factors, initial encounter
CPT/HCPCS: 29515; 73610; 73630; 96372; 99283; J1885; L4350

== ENCOUNTER 2025-02-17 15:51 | Emergency (ER) | payer OTHER, SELFPAY ==
--- NOTE | ~2025-02-17 | US_ITS ---
EXAMINATION: US venous doppler [facility], 02/17/2025 16:40 REPLACER HISTORY: leg pain, worse in left than right COMPARISON: None Technique: Adorno-scale and color Doppler images were attempted of the lower saphenofemoral junction, common femoral vein,superficial femoral vein, proximal deep femoral vein, proximal deep femoral vein, popliteal vein and posterior tibial veins. Findings: Deep Venous System:Normal flow, augmentation and compressibility. No echogenic thrombus identified. Superficial Venous SystemNo superficial thrombophlebitis. Soft tissues: Soft tissues are unremarkable. Impression: Negative for DVT. Reviewed, dictated and finalized at location P. ACER Impression: Negative for DVT.
--- NOTE | ~2025-02-17 | XR_ITS ---
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 Findings: No acute fracture or malalignment. Moderate to severe tricompartmental degenerative changes, small effusion Soft tissues unremarkable. Impression: No acute fracture or malalignment. Reviewed, dictated and finalized at location P. ILS WASHER Impression: No acute fracture or malalignment.
[2025-02-17 15:51] VITALS: BP 157/99; PULSE 84; RESP 16; TEMP 36.4; O2SAT 100
--- OUTSIDE RECORDS SUMMARY | 2025-02-17 15:53 | XMS_ITS | Clinical Summary ---
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[employer] Gender Identity Not on file Sexual Orientation [...] (1 of 2 - 13+ 2-dose series) 2004 Hepatitis B Screening 02/20/2010 Regular Well Visit/Exam 18-64 02/20/2010 Pneumococcal vaccine <65 (1 of 2 - PCV) 02/20/2011 HPV Vaccines (1 - 3-dose SCDM series) 02/20/2019 Influenza Vaccine (#1) 2024 DTaP/Tdap/Td Vaccine (2 - Td or Tdap) 03/14/202503/2015 Insurance AETNA BETTER [facility] AETNA BETTER [facility] AETNA BETTER [facility] Care Teams Cross Cut Sawyer Relationship Specialty [place] [address] [place] [id number] PCP - General Internal Medicine 02/16/[address] NP [address] [place] [address] Nurse Practitioner Orthopedic Surgery 02/16/22
--- OUTSIDE RECORDS SUMMARY | 2025-02-17 15:53 | XMS_ITS | Data Portability ---
Author Organization RAMEZ Luis Fernando FERNANDEZ Angelia Address [address] [place] [address] Care Team Providers Care Forestry Instructor Name Role Phone [facility] Orth opedic Surgeon BERTA ERICKSON Primary Care Provider Unavailab le Assessment No assessment recorded. Plan of Treatment Reminders Order Date Submit Date Provider Last Modified By Organization Details Last Modified Time Details Appointments None recorded. Lab CBC w/ auto diff 2024 025 [facility], [address], [place], [address], 5 03:36:38 iron + total iron-bind ing capacity (TIBC), serum 2024 025 [facility], [address], [place], [address], 5 10:37:32 ferritin, serum or plasma 2024 025 [facility], [address], [place], [address], 5 10:37:34 vitamin D, 25-hydrox y, total, serum 2023 024 [facility], [address] [place] [address], [facility] [address], [place], [address], 4 08:37:43 CBC w/ auto diff 2023 024 [facility], [address], [place], [address], 4 03:36:51 ferritin, serum or plasma 2023 [facility], [address], [place], [address], 4 08:37:42 iron + total iron-bind ing capacity (TIBC), serum 2023 [facility], [address], [place], [address], 4 08:37:41 vitamin B12 + folate, serum or blood 2023 [facility], [address], [place], [address], 4 08:37:40 lipid panel, serum 2023 [facility], [address], [place], [address], 4 03:36:48 CMP, serum or plasma 2023 [facility], [address], [place], [address], 4 03:36:49 cytology report, thin prep, smear or scraping, cervical or vaginal 2023 024 [facility], [address], [place], [address], 4 16:49:37 Referral orthopedi c surgeon referral - chronic bilateral knee pain; had fall onto right knee in January 20242024 025 [facility], [address], [place], [address], 5 16:53:34 counselin g referral - worsening depressio n symptoms; needs helping with coping 2023 024 janey Ryan (), [address], [place], [address], 5 15:40:22 orthopedi c surgeon referral - trauma to right knee (tripped over doorway gate) 2 weeks ago. positive Lesai test on exam and anterior knee bursitis vs bloody fluid collectio n, as patient on Eliquis for DVT diagnosed 09/2023. has appointme nt with PT in early Feb but may need earlier evaluatio n prior to this. 2023 [facility], [address], [place], [address], 5 10:32:30 pain managemen t referral - chronic pain; is seeing PT for knee pain and referred to PT for back pain 2023 [facility], [address], [place], [address], 5 09:02:23 physical therapist referral - chronic neck and back pain 2023 [facility], [address], [place], [address], 4 14:55:04 Procedures None recorded. Surgeries None recorded. Imaging None recorded. Medication Orders hydroxyzi ne HCl 25 mg tablet 2023 025 [facility], [address] [place], [address], 5 12:50:51 duloxetin e 30 mg capsule,d elayed release 2023 025 [facility], [address] [place], [address], 5 12:44:27 oxycodone 5 mg tablet 2023 025 [facility], [address] [place] [address], [address], 12:48:03 Patient TargetsNo targets recorded. Patient Instructions Encounter Date Encounter Id Patient Instructions Last Modified By Organization Details Last Modified Time 02/03/2024 [id number] A healthy lifestyle: care instructions Not available 02/03/2024 15:26:18 Reason for Referral Pain Management Referral for Chronic back pain chronic pain; is seeing PT for knee pain and referred to PT for back pain Referring Physician: Berta Erickson [facility], Encounter Date: 01/06/2024 Physical Therapist Referral for Chronic back pain chronic neck and back pain Referring Physician: Berta Erickson [facility], Encounter Date: 01/06/2024 Orthopedic Surgeon [...] helping with coping Referring Physician: Berta Erickson [facility], Encounter Date: 02/28/2024 Orthopedic Surgeon Referral for Osteoarthritis of knee chronic bilateral knee pain; had fall onto right knee in January 2024 Referring Physician: Berta Erickson [facility], Encounter Date: 05/29/2024 Results Created [...] mcg/d L 12/07 5:24 PM CDT [facility] [employer] [facility] Not Available Not Available 05/29/2024 03:31:38 12/08/19 24 12/08/2023 Iron panel - Serum or Plasm a transferrin [mass/volume ] in serum or plasma 314 mg/dL low: 180mg/ dLhigh : 382mg/ dL TRANS BECKIE N 314 180 - 382 mg/dL 12/07 5:24 PM CDT [facility] [place] [facility] [...] 62 % 12/07 5:24 PM CDT [facility] [place] [facility] [...] - 5.4 g/dL 12/10 10:02 AM CDT [facility] Not Available Not Available 05/29/2024 03:31:38 12/08/19 24 12/11/2023 [facility] Immun oglob ulins panel - Serum alpha 1 globulin/pro tein.total in serum or plasma by electrophore sis 3.3 % low: 2.9%hi gh: 4.9% % ALPHA 1 GLOBU ANTONIO 3.3 2.9 - 4.9 % 12/10 10:02 AM CDT [facility] Not Available Not Available 05/29/2024 03:31:38 12/08/19 24 12/11/2023 [facility] and Immun oglob ulins panel - Serum alpha 1 globulin [mass/volume ] in serum or plasma by electrophore sis 0.2 g/dL low: 0.2g/d Lhigh: 0.4g/d L ALPHA 1 0.2 0.2 - 0.4 g/dL 12/10 10:02 AM CDT [facility] Not Available Not Available 05/29/2024 03:31:38 12/08/19 24 12/11/2023 Prote in elect [facility] resis and Immun oglob ulins panel - Serum alpha 2 globulin/pro tein.total in serum or plasma by electrophore sis 11.9 % low: 7.1%hi gh: 11.8% high % ALPHA 2 GLOBU ANTONIO 11.9 (H) 7.1 - 11.8 % 12/10 10:02 AM CDT [facility] Not Available Not Available 05/29/2024 03:31:38 12/08/19 24 12/11/2023 [facility] and Immun oglob ulins panel - Serum alpha 2 globulin [mass/volume ] in serum or plasma by electrophore sis 0.9 g/dL low: 0.5g/d Lhigh: 1g/dL ALPHA 2 0.9 0.5 - 1.0 g/dL 12/10 10:02 AM CDT [facility] Not Available Not Available 05/29/2024 03:31:38 12/08/19 24 12/11/2023 Prote in elect ropho resis and Immun oglob ulins panel - Serum beta globulin/pro tein.total in serum or plasma by electrophore sis 15.6 % low: 8.4%hi gh: 13.1% high % BETA 15.6 (H) 8.4 - 13.1 % 12/10 10:[address] [facility] Not Available Not Available 05/29/2024 03:31:38 12/08/19 24 12/11/2023 Prote in elect ropho resis and Immun oglob ulins panel - Serum beta globulin [mass/volume ] in serum or plasma by electrophore sis 1.2 g/dL low: 0.5g/d Lhigh: 1.1g/d L high BETA- GLOBU ANTONIO 1.2 (H) 0.5 - 1.1 g/dL 12/10 10:[address] [facility] Not Available Not Available 05/29/2024 03:31:38 12/08/19 24 12/11/2023 Prote in elect ropho resis and Immun oglob ulins panel - Serum gamma globulin/pro tein.total in serum or plasma by electrophore sis 24.7 % low: 11.1%h igh: 18.8% high % GAMMA GLOBU ANTONIO 24.7 (H) 11.1 - 18.8 % 12/10 10:[address] [facility] Not Available [...] 1,631 mg/dL 12/10 10:02 AM CDT [facility] Not Available Not Available 05/29/2024 03:31:38 12/08/19 24 12/11/2023 Prote in elect ropho resis and Immun oglob ulins panel - Serum IgA [mass/volume ] in serum or plasma 266 mg/dL low: 65mg/d Lhigh: 421mg/ dL IMMUN OGLOB ULIN A 266 65 - 421 mg/dL 12/10 10:02 AM CDT [facility] Not Available Not Available 05/29/2024 03:31:38 12/08/19 24 12/11/2023 Prote in elect ropho resis and Immun oglob ulins panel - Serum IgM [mass/volume ] in serum or plasma 160 mg/dL low: 33mg/d Lhigh: 293mg/ dL IMMUN OGLOB ULIN M 160 33 - 293 mg/dL 12/10 10:02 AM CDT [facility] Not Available [...] abnor mal prote in band is detec chico by serum prote in elect ropho resis . Serum immun ofixa tion elect ropho resis is negat pop for monoc lonal immun oglob ulins . Revie wed by Dave Coates, Ph.D. 12/10 10:02 AM CDT [facility] Not Available Not Available 05/29/2024 03:31:38 12/08/19 24 12/11/2023 Prote in elect ropho resis and Immun oglob ulins panel - Serum albumin/glob ulin [mass ratio] in serum or plasma by electrophore sis 0.8 A/G RATIO , SERUM 0.8 12/10 10:02 AM CDT [facility] Not Available Not Available 05/29/2024 03:31:38 12/08/19 24 12/11/2023 Prote in elect ropho resis and Immun oglob ulins panel - Serum Unknown Analyte Review ed by Costa Camacho M.D. Revie wed by Tonya anguiano M.D. Not Available Not Available 05/29/2024 [...] low: 3.3mg/ Lhigh: 19.4mg /L high Free Langford Lt Chn 43.21 (H) 3.30 - 19.40 mg/L 12/08 9:21 AM CDT [facility] Not Available Not Available 05/29/2024 03:31:38 12/08/19 24 12/09/2023 Immun oglob ulin light chain s.ryan e panel - Serum lambda light chains.free [mass/volume ] in serum or plasma 29.98 mg/L low: 5.71mg /Lhigh : 26.3mg /L high Free Lambd a Lt Chn 29.98 (H) 5.71 - 26.30 mg/L 12/08 9:21 AM CDT [facility] Not Available Not Available 05/29/2024 03:31:38 12/08/19 24 12/09/2023 Immun oglob ulin light chain s.ryan e panel - Serum kappa light chains.free/ lambda light chains.free [mass ratio] in serum 1.44 low: 0.26hi gh: 1.65 free hermelinda reyna ratio 1.44 0.26 - 1.65 12/08 9:21 AM CDT [facility] Not Available [...] 220 U/L 12/07 5:24 PM CDT [facility] Not Available Not Available [...] 816 pg/mL 12/07 5:51 PM CDT [facility] Not Available Not Available [...] 145 mmol/ L 12/07 5:24 PM [facility] [employer] [facility] Not Available Not Available 05/29/2024 03:31:37 12/08/19 24 12/08/2023 Compr ehens pop metab olic 1999 panel - Serum or Plasm a potassium [moles/volum e] in serum or plasma 4.3 mmol/ L low: 3.5mmo l/Lhig h: 5.1mmo l/L POTAS SIUM 4.3 3.5 - 5.1 mmol/ L 12/07 5:24 PM CDT [facility] [employer] [facility] LAB Not Available Not Available 05/29/2024 03:31:37 12/08/19 24 12/08/2023 Compr ehens pop metab olic 1999 panel - Serum or Plasm a chloride [moles/volum e] in serum or plasma 109 mmol/ L low: 98mmol /Lhigh : 107mmo l/L high CHLOR ELOISE 109 (H) 98 - 107 mmol/ L 12/07 5:24 PM CDT [facility] Not Available Not Available 05/29/2024 03:31:37 12/08/19 24 12/08/2023 Compr ehens pop metab olic 1999 panel - Serum or Plasm a carbon dioxide, total [moles/volum e] in serum or plasma 23 mmol/ L low: 22mmol /Lhigh : 30mmol /L CO2, VENOU S 23 22 - 30 mmol/ L 12/07 5:24 PM CDT [facility] Not Available Not Available 05/29/2024 03:31:37 12/08/19 24 12/08/2023 Compr ehens pop metab olic 1999 panel - Serum or Plasm a anion gap in serum or plasma 9.3 mmol/ L high: 18mmol /L ANION GAP 9.3 <18.0 mmol/ L 12/07 5:24 PM CDT [facility] [employer] [facility] LAB Not Available Not Available 05/29/2024 03:31:37 12/08/19 24 12/08/2023 Compr ehens pop metab olic 1999 panel - Serum or Plasm a glucose [mass/volume ] in serum or plasma 89 mg/dL low: 70mg/d Lhigh: 99mg/d L GLUCO SE 89 70 - 99 mg/dL 12/07 5:24 PM CDT [facility] [employer] [facility] [employer] Not Available Not Available 05/29/2024 03:31:37 12/08/19 24 12/08/2023 Compr ehens pop metab olic 1999 panel - Serum or Plasm a urea nitrogen [mass/volume ] in serum or plasma 8 mg/dL low: 5mg/dL high: 18mg/d L BUN 8 5 - 18 mg/dL 12/07 5:24 PM CDT [facility] [employer] [facility] [employer] [facility] LAB Not Available Not Available 05/29/2024 03:31:37 12/08/19 24 12/08/2023 Compr eegoesens pop metab olic 1999 panel - Serum or Plasm a creatinine [mass/volume ] in serum or plasma 0.75 mg/dL low: 0.6mg/ dLhigh : 1mg/dL CREAT ININE , BLOOD 0.75 0.60 - 1.00 mg/dL 12/07 5:24 PM CDT [facility] [employer] R LAB Not Available Not Available 05/29/2024 03:31:37 12/08/19 24 12/08/2023 Compr eegoesens pop metab olic 1999 panel - Serum or Plasm a urea nitrogen/cre atinine [mass ratio] in serum or plasma 11 text: 12 - 20 ratio low BUN/C REATI NINE RATIO 11 (L) 12 - 20 ratio 12/07 5:24 PM CDT [facility] [employer] C[facility] R LAB Not Available Not Available 05/29/2024 03:31:37 12/08/19 24 12/08/2023 Compr eegoesens pop metab olic 1999 panel - Serum or Plasm a protein [mass/volume ] in serum or plasma 7.8 g/dL low: 6.3g/d Lhigh: 8.2g/d L TOTAL PROTE IN 7.8 6.3 - 8.2 g/dL 12/07 5:24 PM CDT [facility] [employer] LAB Not Available Not Available 05/29/2024 03:31:37 12/08/19 24 12/08/2023 Compr eegoesens pop metab olic 1999 panel - Serum or Plasm a albumin [mass/volume ] in serum or plasma 3.8 g/dL low: 3.5g/d Lhigh: 5g/dL ALBUM IN 3.8 3.5 - 5.0 g/dL 12/07 5:24 PM CDT [facility] [employer] LAB Not Available Not Available 05/29/2024 03:31:37 12/08/19 24 12/08/2023 Compr eegoesens pop [employer] olic 2000 panel - Serum or Plasm a albumin/glob ulin [mass ratio] in serum or plasma 1 low: 1high: 2.2 A/G RATIO 1.0 1.0 - 2.2 12/07 5:24 PM CDT [facility] [employer] R LAB Not Available Not Available 05/29/2024 03:31:37 12/08/19 24 12/08/2023 Compr eegoesens pop [employer] olic 1999 panel - Serum or Plasm a calcium [mass/volume ] in serum or plasma 9.1 mg/dL low: 8.7mg/ dLhigh : 10.5mg /dL CALCI UM 9.1 8.7 - 10.5 mg/dL 12/07 5:24 PM CDT [facility] [employer] R LAB Not Available Not Available 05/29/2024 03:31:37 12/08/19 24 12/08/2023 Compr eegoesens pop metab olic 2000 panel - Serum or Plasm a bilirubin.to ollie [mass/volume ] in serum or plasma 0.2 mg/dL low: 0.2mg/ dLhigh : 1.2mg/ dL T BILI 0.2 0.2 - 1.2 mg/dL 12/07 5:24 PM CDT [facility] Not Available Not Available 05/29/2024 03:31:37 12/08/19 24 12/08/2023 Compr ehens pop metab olic 1999 panel - Serum or Plasm a aspartate aminotransfe rase [enzymatic activity/vol ume] in serum or plasma 13 U/L low: 5U/Lhi gh: 34U/L SGOT (AST) 13 5 - 34 U/L 12/07 5:24 PM CDT [facility] Not Available Not Available 05/29/2024 03:31:37 12/08/19 24 12/08/2023 Compr ehens pop metab olic 2000 panel - Serum or Plasm a alanine aminotransfe rase [enzymatic activity/vol ume] in serum or plasma 11 U/L low: 0U/Lhi gh: 55U/L SGPT (ALT) 11 0 - 55 U/L 12/07 5:24 PM CDT [facility] [employer] C[facility]E R LAB Not Available Not Available 05/29/2024 03:31:37 12/08/19 24 12/08/2023 Compr ehens pop metab olic 2000 panel - Serum or Plasm a alkaline phosphatase [enzymatic activity/vol ume] in serum or plasma 66 U/L low: 40U/Lh igh: 150U/L ALKAL INE PHOSP HATAS E 66 40 - 150 U/L 12/07 5:24 PM CDT [facility] [employer] [facility] R LAB Not Available Not Available 05/29/2024 03:31:37 12/08/19 24 12/08/2023 Compr eegoesens pop metab olic 2000 panel - Serum or Plasm a IS the patient required to BE fasting? No IS THE PATIE NT REQUI RED TO BE FASTI NG? No 12/07 5:24 PM CDT [facility] Not Available Not Available 05/29/2024 03:31:37 12/08/19 24 12/08/2023 Compr ehens pop metab olic 1999 panel - Serum or Plasm a glomerular filtration rate/1.73 sq M.predicted among non-blacks [volume rate/area] in serum, plasma or blood by creatinine-b ased formula (MDRD) low: 60 GFR, ESTIM ATED >60 >=60 12/07 5:24 PM CDT [facility] [employer] R LAB Not Available Not Available 05/29/2024 03:31:37 12/08/19 24 12/08/2023 Compr ehens pop metab olic 2000 panel - Serum or Plasm a glomerular filtration rate/1.73 sq M.predicted among blacks [volume rate/area] in serum, plasma or blood by creatinine-b ased formula (MDRD) low: 60 GFR, EST. AFRIC AN >60 >=60 12/07 5:24 PM CDT [facility] [employer] R LAB Not Available Not Available 05/29/2024 03:31:37 12/08/19 24 12/08/2023 Compr ehens pop metab olic 2000 panel - Serum or Plasm a glomerular filtration rate/1.73 sq M.predicted among non-blacks [volume rate/area] in serum, plasma or blood by creatinine-b ased formula (MDRD) low: 60 GFR, EST. NONAF RICAN >60 >=60 12/07 5:24 PM CDT [facility] [employer] R LAB Not Available Not Available 05/29/2024 03:31:37 12/08/1912/08/2023 Compr eegoesens pop metab olic 2000 panel - Serum or Plasm a interpretati on and review of laboratory results Abnorm al Not Available Not Available 03:31:37 12/08/1912/08/2023 Beckie tin [Mass /volu me] in Serum or Plasm a ferritin [mass/volume ] in serum or plasma 4 NG/mL low: 5NG/mL high: 204NG/ mL low BECKIE TIN 4 (L) 5 - 204 ng/mL 12/07 5:37 PM CDT [facility] [employer] R LAB Not Available Not Available 05/29/2024 [...] 31.4 ng/mL 12/07 5:51 PM CDT [facility] Not Available Not Available 05/29/2024 03:31:37 12/08/19 24 12/08/2023 Folat e [Mass /volu me] in Serum or Plasm a thermoactino myces vulgaris IgG Ab [mass/volume ] in serum No IS THE PATIE NT REQUI RED TO BE FASTI NG? No 12/07 5:51 PM CDT [facility] Not Available Not Available 05/29/2024 03:31:37 12/08/19 24 12/08/2023 Folat e [Mass /volu me] in Serum or Plasm a interpretati on and review of laboratory results Abnorm al Not Available Not Available 03:31:37 02/03/20 24 02/03/2024 LIPID PANEL cholesterol, total 171 mg/dL 100-[address] [facility] Department [address] [place], [address], 02/04/2024 03:36:48 02/03/20 24 02/03/2024 LIPID PANEL triglyceride s 133 mg/dL 0-149 Not Available [facility] Department [address] [place], [address], 02/04/2024 03:36:48 02/03/20 24 02/03/2024 LIPID PANEL HDL cholesterol 40 mg/dL 40-999 Not Available [facility] Department [address] [place] [address], [address], 02/04/2024 03:36:48 02/03/20 24 02/03/2024 LIPID PANEL VLDL cholesterol rudolph 27 mg/dL 5-40 Not Available [facility] Department [address] [place] [address], [address], 02/04/2024 03:36:48 02/03/20 24 02/03/2024 LIPID PANEL LDL chol calc (nih) 123 mg/dL 0-99 above high normal Not Available [facility] Department [address] [place] [address], [address], 02/04/2024 03:36:48 02/03/20 24 02/03/2024 COMP. METAB OLIC PANEL (14) glucose 77 mg/dL 70-[address] [facility] Department [address] [place] [address], [address], 02/04/2024 03:36:49 02/03/20 24 02/03/2024 COMP. METAB OLIC PANEL (14) BUN 12 mg/dL 6-[address] [facility] Department [address] [place] [address], [address], 02/04/2024 03:36:49 02/03/20 24 02/03/2024 COMP. METAB OLIC PANEL (14) creatinine 0.72 mg/dL 0.76-1 .27 below low normal Not Available [facility] Department [address] [place] [address], [address], 02/04/2024 03:36:49 02/03/20 24 02/03/2024 COMP. METAB OLIC PANEL (14) eGFR 115 >=60 Units for eGFR value s are mL/mi n/1.7 3 The eGFR Calcu latio n has not been valid ated for patie nts under the age of 18. If test resul ts are displ ayed for a patie nt under the age of 18, disre isha that value . Not Available [facility] Department [address] [place] [address], [address], 02/04/2024 03:36:49 02/03/20 24 02/03/2024 COMP. METAB OLIC PANEL (14) BUN/creatini ne ratio 17 9-23 Not Available [facility] Department [address] [place], [address], 02/04/2024 03:36:49 02/03/20 24 02/03/2024 COMP. METAB OLIC PANEL (14) sodium 139 mmol/ L 134-[address] [facility] Department [address] [place] [address], [address], 02/04/2024 03:36:49 02/03/20 24 02/03/2024 COMP. METAB OLIC PANEL (14) potassium 4.6 mmol/ L 3.5-5. [address] [facility] Department [address] [place] [address], [address], 02/04/2024 03:36:49 02/03/20 24 02/03/2024 COMP. METAB OLIC PANEL (14) chloride 105 mmol/ L 96-[address] [facility] Department [address] [place] [address], [address], 02/04/2024 03:36:49 02/03/20 24 02/03/2024 COMP. METAB OLIC PANEL (14) carbon dioxide, total 22 mmol/ L 20-[address] [facility] Department [address] [place] [address], [address], 02/04/2024 03:36:49 02/03/20 24 02/03/2024 COMP. METAB OLIC PANEL (14) calcium 9.3 mg/dL 8.7-[address] [facility] Department [address] [place] [address], [address], 02/04/2024 03:36:49 02/03/20 24 02/03/2024 COMP. METAB OLIC PANEL (14) protein, total 7.9 g/dL 6.0-8. [address] [facility] Department [address] [place], [address], 02/04/2024 03:36:49 02/03/20 24 02/03/2024 COMP. METAB OLIC PANEL (14) albumin 4.2 g/dL 3.9-4. [address] [facility] Department [address] [place], [address], 02/04/2024 03:36:49 02/03/20 24 02/03/2024 COMP. METAB OLIC PANEL (14) globulin, total 3.7 g/dL 1.5-4. [address] [facility] Department [address] [place], [address], 02/04/2024 03:36:49 02/03/20 24 02/03/2024 COMP. METAB OLIC PANEL (14) A/G ratio 1.1 1.2-2. 2 below low normal Not Available [facility] Department [address] [place], [address], 02/04/2024 03:36:49 02/03/20 24 02/03/2024 COMP. METAB OLIC PANEL (14) bilirubin, total 0.2 mg/dL 0.0-1. [address] [facility] Department [address] [place], [address], 02/04/2024 03:36:49 02/03/20 24 02/03/2024 COMP. METAB OLIC PANEL (14) alkaline phosphatase 72 IU/L 44-121 Not Available [facility] Department [address] [place], [address], 02/04/2024 03:36:49 02/03/20 24 02/03/2024 COMP. METAB OLIC PANEL (14) AST (SGOT) 13 IU/L 0-40 Not Available [facility] Department [address] [place], [address], 02/04/2024 03:36:49 02/03/20 24 02/03/2024 COMP. METAB OLIC PANEL (14) ALT (SGPT) 12 IU/L 0-32 Not Available [facility] Department [address] [place], [address], 02/04/2024 03:36:49 02/03/20 24 02/03/2024 CBC WITH DIFFE RENTI AL/PL ATELE T WBC 10.4 x10e3 /uL 3.4-10 .8 Eff ectiv e Decem jo 2023 profi le [id number] 5 WBC will be made* * non-o rdera ble as a stand -sami e order code. Not Available [facility] Department [address] [place], [address], 02/04/2024 03:36:51 02/03/20 24 02/03/2024 CBC WITH DIFFE RENTI AL/PL ATELE T RBC 4.91 x10e6 /uL 3.77-[address] [facility] [address] [place], [address], 02/04/2024 03:36:51 02/03/20 24 02/03/2024 CBC WITH DIFFE RENTI AL/PL ATELE T hemoglobin 12.6 g/dL 11.1-[address] [facility] [address] [place], [address], 02/04/2024 03:36:51 02/03/20 24 02/03/2024 CBC WITH DIFFE RENTI AL/PL ATELE T hematocrit 39.6 % 34.0-[address] [facility] [address] [place], [address], 02/04/2024 03:36:51 02/03/20 24 02/03/2024 CBC WITH DIFFE RENTI AL/PL ATELE T MCV 81 fL 79-[address] [facility] [address] [place], [address], 02/04/2024 03:36:51 02/03/20 24 02/03/2024 CBC WITH DIFFE RENTI AL/PL ATELE T MCH 25.7 pg 26.6-3 3.0 below low normal Not Available [facility] Department [address] [place], [address], 02/04/2024 03:36:51 02/03/20 24 02/03/2024 CBC WITH DIFFE RENTI AL/PL ATELE T MCHC 31.8 g/dL 31.5-[address] [facility] Department [address] [place], [address], 02/04/2024 03:36:51 02/03/20 24 02/03/2024 CBC WITH DIFFE RENTI AL/PL ATELE T RDW 21.0 % 11.5-1 4.5 above high normal Not Available [facility] Department [address] [place], [address], 02/04/2024 03:36:51 02/03/20 24 02/03/2024 CBC WITH DIFFE RENTI AL/PL ATELE T platelets 462 x10e3 /uL 150-45 0 above high normal Not Available [facility] Department [address] [place], [address], 02/04/2024 03:36:51 02/03/20 24 02/03/2024 CBC WITH DIFFE RENTI AL/PL ATELE T neutrophils 66 % notest b. Not Available [facility] Department [address] [place], [address], 02/04/2024 03:36:51 02/03/20 24 02/03/2024 CBC WITH DIFFE RENTI AL/PL ATELE T lymphs 26 % notest b. Not Available [facility] Department [address] [place], [address], 02/04/2024 03:36:51 02/03/20 24 02/03/2024 CBC WITH DIFFE RENTI AL/PL ATELE T monocytes 5 % notest b. Not Available [facility] Department [address] [place], [address], 02/04/2024 03:36:51 02/03/20 24 02/03/2024 CBC WITH DIFFE RENTI AL/PL ATELE T eos 3 % notest b. Not Available [facility] Department [address] [place], [address], 02/04/2024 03:36:51 02/03/20 24 02/03/2024 CBC WITH DIFFE RENTI AL/PL ATELE T basos 0 % notest b. Not Available [facility] Department [address] [place] [address], [address], 02/04/2024 03:36:51 02/03/20 24 02/03/2024 CBC WITH DIFFE RENTI AL/PL ATELE T neutrophils (absolute) 6.9 x10e3 /uL 1.4-7. [address] [facility] Department [address] [place], [address], 02/04/2024 03:36:51 02/03/20 24 02/03/2024 CBC WITH DIFFE RENTI AL/PL ATELE T lymphs (absolute) 2.7 x10e3 /uL 0.7-3. [address] [facility] Department [address] [place], [address], 02/04/2024 03:36:51 02/03/20 24 02/03/2024 CBC WITH DIFFE RENTI AL/PL ATELE T monocytes(ab solute) 0.6 x10e3 /uL 0.1-0. [address] [facility] Department [address] [place], [address], 02/04/2024 03:36:51 02/03/20 24 02/03/2024 CBC WITH DIFFE RENTI AL/PL ATELE T eos (absolute) 0.3 x10e3 /uL 0.0-0. [address] [facility] Department [address] [place], [address], 02/04/2024 03:36:51 02/03/20 24 02/03/2024 CBC WITH DIFFE RENTI AL/PL ATELE T baso (absolute) 0.0 x10e3 /uL 0.0-0. [address] [facility] Department [address] [place], [address], 02/04/2024 03:36:51 02/03/20 24 02/03/2024 CBC WITH DIFFE RENTI AL/PL ATELE T immature granulocytes 0.1 % notest b. Not Available [facility] Department [address] [place], [address], 02/04/2024 03:36:51 02/03/20 24 02/03/2024 CBC WITH DIFFE RENTI AL/PL ATELE T immature grans (abs) 0.0 x10e3 /uL 0.0-0. [address] [facility] Department [address] [place], [address], 02/04/2024 03:36:51 02/03/20 24 02/03/2024 CBC WITH DIFFE RENTI AL/PL ATELE T NRBC 0 % 0-[address] [facility] Department [address] [place], [address], 02/04/2024 03:36:51 02/03/20 24 02/04/2024 VITAM IN B12 AND FOLAT E vitamin B12 232 pg/mL 232-12 45 Not Available [facility] ([facility]) [address] [facility], [place], [address], 02/04/2024 08:37:40 02/03/20 24 02/04/2024 VITAM IN B12 AND FOLAT E folate (folic acid), serum 8.4 NG/mL >3.0 A serum folat e faviola ntrat ion of less than 3.1 ng/mL is consi dered to repre sent clini rudolph defic iency . Not Available [facility] ([facility]) [address] [facility], [place], [address], 02/04/2024 08:37:40 02/03/20 24 02/04/2024 IRON AND TIBC iron bind.cap.(TI BC) 358 ug/dL 250-45 0 Not Available [facility] ([facility]) [address] [facility], [place], [address], 02/04/2024 08:37:41 02/03/20 24 02/04/2024 IRON AND TIBC UIBC 319 ug/dL 131-42 5 Not Available [facility] ([facility]) [address] [place], [address], 02/04/2024 08:37:41 02/03/20 24 02/04/2024 IRON AND TIBC iron 39 ug/dL 27-159 Not Available [facility] ([facility]) [address] [place], [address], 02/04/2024 08:37:41 02/03/20 24 02/04/2024 IRON AND TIBC iron saturation 11 % 15-55 below low normal Not Available [facility] ([facility]) [address] [place], [address], 02/04/2024 08:37:41 02/03/20 24 02/04/2024 BECKIE TIN ferritin 14 NG/mL 15-150 below low normal Not Available [facility] ([facility]) [address] [place], [address], 02/04/2024 08:37:42 02/03/20 24 02/04/2024 VITAM IN [...] um and D. Emir juarez [place]: [facility] Press . 2. Sabra shook [place], Trevor ey [place], [place] off-F errar i [place], et al. Evalu ation , treat ment, and preve ntion of vitam in D defic iency : an Endoc rine Socie ty clini rudolph pract ice guide line. JCEM. 2010; 96(7) :1911 -30. Not Available [facility] ([facility]) [address] [facility], [place], [address], 02/04/2024 08:37:43 02/03/20 24 02/06/2024 IGP, APTIM A HPV, RFX 16/18 ,45 HPV aptima NEGATI VE negati ve This nucle ic acid ampli ficat ion test detec ts fourt een high- risk HPV types (16,1 8,31, 33,35 ,39,4 5,51, 52,56 ,58,5 9,66, 68) witho ut diffe renti ation . Not Available [facility] ([facility]) [address] [facility], [place], [address], 02/13/2024 16:49:37 02/03/20 24 02/13/2024 IGP, APTIM A HPV, RFX 16/18 ,45 diagnosis: COMMEN T NEGAT POP FOR INTRA EPITH ELIAL LESIO N OR BETTIE PÉREZ . Not Available [facility] ([facility]) [address] [place], [address], 02/13/2024 16:49:37 02/03/20 24 02/13/2024 IGP, APTIM A HPV, RFX 16/18 ,45 specimen adequacy: MIHAI Fiore Satis facto ry for evalu ation . Endoc ervic al and/o r squam ous metap lasti c cells (endo cervi rudolph compo nent) are prese nt. Not Available [facility] ([facility]) [address] [place], [address], 02/13/2024 16:49:37 02/03/20 24 02/13/2024 IGP, APTIM A HPV, RFX 16/18 ,45 clinician provided ICD10: MIHAI Fiore Z00.0 1 Z12.4 E55.9 D50.0 D51.9 D52.9 Not Available [facility] ([facility]) [address] [place], [address], 02/13/2024 16:49:37 02/03/20 24 02/13/2024 IGP, APTIM A HPV, RFX 16/18 ,45 performed by: MIHAI choe Cytot prabhakar fiore (ASCP ) Not Available [facility] ([facility]) [address] [place], [address], 02/13/2024 16:49:37 02/03/20 24 02/13/2024 IGP, APTIM A HPV, RFX 16/18 ,45 . . Not Available [facility] ([facility]) [address] [place], [address], 02/13/2024 16:49:37 02/03/20 24 02/13/2024 IGP, APTIM [...] ts do occur . Not Available [facility] ([facility]) [address] [facility], [place], [address], 02/13/2024 16:49:37 02/03/20 24 02/13/2024 IGP, APTIM A HPV, RFX 16/18 ,45 test methodology: COMMEN T This liqui d based ThinP rep(R ) pap test was scree ericka with the use of an image guide d syste m. Not Available [facility] ([facility]) [address] [facility], [place], [address], 02/13/2024 16:49:37 02/03/20 24 02/13/2024 IGP, APTIM A HPV, RFX 16/18 ,45 HPV genotype reflex COMMEN T Crite alejandro not met, HPV Genot ype not perfo rmed. Not Available [facility] ([facility]) [address] [facility], [place], [address], 02/13/2024 16:49:37 04/15/19 25 04/15/2024 Influ andres [...] (A) Negat pop, Error 04/15 5:16 PM COST COORDINATOR [facility] Not Available Not Available 05/29/2024 03:30:51 04/15/19 [...] Negat pop Negat pop 04/15 5:16 PM COST COORDINATOR [facility] Not Available Not Available 05/29/2024 [...] Negat pop Negat pop 04/15 5:16 PM COST COORDINATOR [facility] Not Available Not Available 05/29/2024 [...] not detect ed) SARSC OV2 NOT DETEC CHICO (Refe rence Range for this test is Not Detec chico) 04/15 5:16 PM COST COORDINATOR [facility] Not Available Not Available 05/29/2024 [...] 9.2 x10e3 /uL 3.4-10 .8 Not Available [facility] Department [address] [place], [address], 05/30/2024 03:36:38 05/30/1905/30/2024 CBC WITH DIFFE RENTI AL/PL ATELE T RBC 4.55 x10e6 /uL 3.77-[address] [facility] Department [address] [place], [address], 05/30/2024 03:36:38 05/30/19 25 05/30/2024 CBC WITH DIFFE RENTI AL/PL ATELE T hemoglobin 12.8 g/dL 11.1-[address] [facility] Department [address] [place], [address], 05/30/2024 03:36:38 05/30/19 25 05/30/2024 CBC WITH DIFFE RENTI AL/PL ATELE T hematocrit 41.2 % 34.0-[address] [facility] Department [address] [place], [address], 05/30/2024 03:36:38 05/30/1905/30/2024 CBC WITH DIFFE RENTI AL/PL ATELE T MCV 91 fL 79-[address] [facility] Department [address] [place], [address], 05/30/2024 03:36:38 05/30/19 25 05/30/2024 CBC WITH DIFFE RENTI AL/PL ATELE T MCH 28.1 pg 26.6-[address] [facility] Department [address] [place], [address], 05/30/2024 03:36:38 05/30/19 25 05/30/2024 CBC WITH DIFFE RENTI AL/PL ATELE T MCHC 31.1 g/dL 31.5-3 5.7 below low normal Not Available [facility] Department [address] [place], [address], 05/30/2024 03:36:38 05/30/19 25 05/30/2024 CBC WITH DIFFE RENTI AL/PL ATELE T RDW 14.7 % 11.5-1 4.5 above high normal Not Available [facility] Department [address] [place], [address], 05/30/2024 03:36:38 05/30/19 25 05/30/2024 CBC WITH DIFFE RENTI AL/PL ATELE T platelets 406 x10e3 /uL 150-[address] [facility] Department [address] [place], [address], 05/30/2024 03:36:38 05/30/19 25 05/30/2024 CBC WITH DIFFE RENTI AL/PL ATELE T neutrophils 57 % notest b. Not Available [facility] Department [address] [place], [address], 05/30/2024 03:36:38 05/30/19 25 05/30/2024 CBC WITH DIFFE RENTI AL/PL ATELE T lymphs 30 % notest b. Not Available [facility] Department [address] [place], [address], 05/30/2024 03:36:38 05/30/19 25 05/30/2024 CBC WITH DIFFE RENTI AL/PL ATELE T monocytes 6 % notest b. Not Available [facility] Department [address] [place], [address], 05/30/2024 03:36:38 05/30/19 25 05/30/2024 CBC WITH DIFFE RENTI AL/PL ATELE T eos 7 % notest b. Not Available [facility] Department [address] [place], [address], 05/30/2024 03:36:38 05/30/19 25 05/30/2024 CBC WITH DIFFE RENTI AL/PL ATELE T basos 0 % notest b. Not Available [facility] Department [address] [place], [address], 05/30/2024 03:36:38 05/30/19 25 05/30/2024 CBC WITH DIFFE RENTI AL/PL ATELE T neutrophils (absolute) 5.2 x10e3 /uL 1.4-7. [address] [facility] Department [address] [place], [address], 05/30/2024 03:36:38 05/30/19 25 05/30/2024 CBC WITH DIFFE RENTI AL/PL ATELE T lymphs (absolute) 2.8 x10e3 /uL 0.7-3. [address] [facility] Department [address] [place], [address], 05/30/2024 03:36:38 05/30/19 25 05/30/2024 CBC WITH DIFFE RENTI AL/PL ATELE T monocytes(ab solute) 0.6 x10e3 /uL 0.1-0. [address] [facility] Department [address] [place], [address], 05/30/2024 03:36:38 05/30/19 25 05/30/2024 CBC WITH DIFFE RENTI AL/PL ATELE T eos (absolute) 0.6 x10e3 /uL 0.0-0. 4 above high normal Not Available [facility] Department [address] [place], [address], 05/30/2024 03:36:38 05/30/19 25 05/30/2024 CBC WITH DIFFE RENTI AL/PL ATELE T baso (absolute) 0.0 x10e3 /uL 0.0-0. [address] [facility] Department [address] [place], [address], 05/30/2024 03:36:38 05/30/19 25 05/30/2024 CBC WITH DIFFE RENTI AL/PL ATELE T immature granulocytes 0.2 % notest b. Not Available [facility] Department [address] [place], [address], 05/30/2024 03:36:38 05/30/19 25 05/30/2024 CBC WITH DIFFE RENTI AL/PL ATELE T immature grans (abs) 0.0 x10e3 /uL 0.0-0. [address] [facility] Department [address] [place], [address], 05/30/2024 03:36:38 05/30/19 25 05/30/2024 CBC WITH DIFFE RENTI AL/PL ATELE T NRBC 0 % 0-[address] [facility] Department [address] [place], [address], 05/30/2024 03:36:38 05/30/19 25 05/30/2024 IRON AND TIBC iron bind.cap.(TI BC) 338 ug/dL 250-45 0 Not Available [facility] ([facility]) [address] [place], [address], 05/30/2024 10:37:32 05/30/19 25 05/30/2024 IRON AND TIBC UIBC 303 ug/dL 131-42 5 Not Available [facility] ([facility]) [address] [place], [address], 05/30/2024 10:37:32 05/30/19 25 05/30/2024 IRON AND TIBC iron 35 ug/dL 27-159 Not Available [facility] ([facility]) [address] [place], [address], 05/30/2024 10:37:32 05/30/19 25 05/30/2024 IRON AND TIBC iron saturation 10 % 15-55 below low normal Not Available [facility] ([facility]) [address] [place], [address], 05/30/2024 10:37:32 05/30/19 25 05/30/2024 BECKIE TIN ferritin 14 NG/mL 15-150 below low normal Not Available [facility] ([facility]) [address] [facility], [place], [address], 05/30/2024 10:37:34 01/22/20 24 01/21/2024 XR, knee, 4 or more view No observ ation record ed. [address], [place], [address], 01/24/2024 10:59:38 01/24/20 24 01/21/2024 US, lovele x, varsha s, extre mity, compl ete No observ ation record ed. [address], [place], [address], 01/24/2024 10:59:38 10/05/19 25 10/03/2024 XR, ankle + foot No observ ation record ed. [facility] [address] [place], [address], 10/10/2024 13:07:04 Result Notes None recorded. Problems Name Problem SNOMED Code Status Onset Date Resolution Date Notes Provider Name and Address Organization Details Recorded Time Osteoart hritis of knee 758076495 Active 2021 BERTA ERICKSON MD Attn: Luis mauro,[address] [place], [address], [facility] - [facility] 4 17:06:16 Influenz a vaccinat ion declined 272012052 Active 2021 Jonas Carreno MD Attn: Luis mauro,[address] [place], [address], [place] 2 14:54:17 SARS-CoV -2 antigen vaccine declined 2117195064 Active 2021 Jonas Carreno MD Attn: Luis mauro,[address] [place], [address], [place] [facility] 2 14:54:19 Anemia 345008772 Completed 202110/14/2023 BERTA ERICKSON MD Attn: Luizsenia mauro,[address] [place], [address], [place] [facility] 4 10:22:49 Iron deficien cy anemia 32381566 Active 2022 BERTA ERICKSON MD Attn: Luis nj,[address] [place], [address], [place] [facility] 3 11:10:41 Vitamin D deficien cy 15393033 Active 2022 BERTA ERICKSON MD Attn: Luis nj,[address] [place], [address], [place] [facility] 3 23:11:50 Menorrha zelalem 404596576 Active 2023 BERTA ERICKSON MD Attn: Luis nj,[address] [place], [address], [place] [facility] 4 10:22:44 Deep venous thrombos is 065642092 Active 2023 BERTA ERICKSON MD Attn: Luis nj,[address] [place], [address], [place] [facility] 4 10:23:02 Uses IUD (intraut erine device) contrace ption 113055218 Active 2023 Mirena placed 10/14/23 for manageme nt of heavy menstrua l bleeding BERTA ERICKSON MD Attn: Luis mauro,[address] [place], [address], [place] [facility] 4 10:36:45 Chronic back pain 483350033 Active 2023 BERTA ERICKSON MD Attn: Luis mauro,[address] [place], [address], [place] [facility] 4 17:06:13 Problem Notes None recorded. Procedures Surgical History Date Name Laterality Status Provider Name and Address Organization Details Recorded Time 4 Control Implant Removal completed BERTA ERICKSON MD Attn: Accounting,[address] [facility], [place], [address], [facility] 10/14/2023 10:22:04 4 IUD Insertion completed BERTA ERICKSON MD Attn: Accounting,[address] [facility], [place], [address], [facility] - [facility] 10/14/2023 09:47:21 6 delivery completed Abimbola Bruce MA [facility] 01/19/2022 14:25:15 Imaging Results None recorded. Procedure Notes None recorded. Medical Equipment None Reported. Allergies Allergen ID Allergen Name Allergen Category Reaction Reaction Severity Criticality Documentation Date Start Date Code Code System Note Provider Name and Address Organization Details Recorded Time 470874 Bactrim medicatio n vomiting moderate Not available 01/19/2022 59338 9 RxNorm Abimbola Bruce MA null, [place] - [facility] 2 14:23:53 Medications Name Sig Start Date Stop [...] mass index (BMI) Body weight Oxygen saturation Heart rate Systolic And Diastolic Provider Name and Address Organization Details Last Updated DateTime 5 182.88 cm 50.3 kg/m2 650958. 47 g 99 % 82 /min 142/85 mm[Hg] Vandana Blanco MA [facility] 5 12:24:16 Date Recorded Body height Body mass index (BMI) Body weight Oxygen saturation Heart rate Body temperature Systolic And Diastolic Provider Name and Address Organization Details Last Updated DateTime 4 182.88 cm 48.8 kg/m2 485199. 95 g 98 % 67 /min 98.3 [degF] 129/85 mm[Hg] Mali De Oliveira MA [facility] 4 12:12:41 Date Recorded Body height Body mass index (BMI) Body weight Oxygen saturation Body temperature Heart rate Systolic And Diastolic Provider Name and Address Organization Details Last Updated DateTime 4 182.88 cm 49.5 kg/m2 965604. 22 g 98 % 98.1 [degF] 72 /min 118/77 mm[Hg] Mali De Oliveira MA [facility] 4 11:49:18 Date Recorded Body height Body mass index (BMI) Body weight Oxygen saturation Heart rate Body temperature Systolic And Diastolic Systolic And Diastolic Provider Name and Address Organization Details Last Updated DateTime 4 182.88 cm 49.5 kg/m2 266686. 22 g 98 % 80 /min 98.6 [degF] 123/47 mm[Hg] 120/80 mm[Hg] Vandana Blanco [place] [facility] 4 15:06:01 Date Recorded Body height Body mass index (BMI) Body weight Oxygen saturation Heart rate Body temperature Systolic And Diastolic Provider Name and Address Organization Details Last Updated DateTime 4 182.88 cm 50.2 kg/m2 886007. 98 g 98 % 86 /min 98.1 [degF] 121/85 mm[Hg] Mali De Oliveira [place] [facility] 4 16:56:29 Social History Question Answer Notes LastModified by Organizat ion Details LastModified Time Tobacco Smoking Status Former Smoker quit 07/2023 Mali De Oliveira [place] null, [place] [facility] 09/30/2023 16:45:10 Are You Blind [...] 07/06/2022 What Is Your Current Pack Years? 10-19packyea rs Information not available 07/06/2022 Do You [...] 07/06/2022 Are you able to care for yourself independently? Yes Information not available 01/19/2022 What is your exercise level? Occasional Walking Information not available 07/06/2022 Mental Status Question Answer Note LastModified by Organization D etails LastModified Time Do you feel stressed (tense, restless, nervous, or anxious, or unable to sleep at night)? [id number] Information not available 07/06/2022 Family History Relationship Description Onset Age of this Age Resolved Age Notes LastModified by Organization Details LastModified Time Father Diabetes mellitus hdoverma Not available 2021 14:26:01 Mother Arthritis hdoverma Not availabl e 01/19/2022 14:26:07 Mother Tuberculosis hdoverma Not avail able 01/19/2022 14:26:26 Maternal Grandmother Family history of breast cancer hdoverma Not available 2021 14:27:00 Paternal Grandmother Malignant neoplasm of breast hdoverma Not available 2021 14:27:21 Medical History Condition Response Coronary Artery Disease N Other N High Blood Pressure N Atrial Fibrillation N Kidney or Bladder Problems N Thyroid Problems N GI Problems N Depression N COPD N Blood Clots N Skin Problems N Anemia N Heart Attack (DE) N Anxiety Disorder N Diabetes N Muscle, Joint, or Bone Problems Y Seizures/Epilepsy N Acid Reflux (GERD) N Cancer N Stroke N Asthma N Allergies N High Cholesterol N Hepatitis N Liver Disease N Headaches N Osteoporosis N Heart Failure N Gynecological History Statement/Question Response Flow Light Date of LMP 12/25/2023 Menses Monthly Y Duration of Flow (days) 5 Age at Menarche 15 Current Control Method IUD Age at First Child 23 LMP Approximate Obstetrics History GPAL:G 3 P 0 0 2 2 Type Value Spontaneous 2 Living 2 Total 3 Immunizations Vaccine Type Date Status Note Provider [place] and Address Organization Details Recorded Time Tdap 03/14/2015 completed Jonas Carreno MD Attn: Accounting[address] [place], [address], [facility] 02/22/2022 13:06:44 Past Encounters Encounter ID Performer Location Encounter Start Date Encounter Closed Date Diagnosis/Indication Diagnosis SNOMED-CT Code Diagnosis ICD10 Code Diagnosis IMO Codes Diagnosis Note [id number] Jonas Carreno MD [facility] (Adult Med) [facility] [place] [address] 01/19/2022 14:11:30 01/20/2022 09:33:25 General examination of patient 565979190 Z00.01 Body mass index 40+ - severely obese 619338095 Z68.41 Influenza vaccination declined 748275599 Z28.21 SARS-CoV-2 antigen vaccine declined 5155326193 Z28.21 Osteoarthr itis of knee 556345255 M17.9 [id number] MD Anahi Roberson (Adult Med) [address] [place] [address] 02/22/2022 12:40:30 02/23/2022 14:54:49 Follow-up visit 942357282 Z09 Osteoarthr itis of knee 811535678 M17.9 Anemia 623444583 D64.9 Abnormal urinalysis 1672 30475 R82.90 Body mass index 40+ - severely obese 448649349 Z68.41 [id number] MD Yaneli EDOUARD (SMUDGER) [address] [place] [address] 07/06/2022 11:34:24 07/08/2022 11:21:24 Screening for malignant neoplasm of cervix 383542473 Z12.4 - f/u outside clinic records for Pap result from 2021 Body mass index 40+ - severely obese 009929707 Z68.42 - Discussed healthy behaviors, including eating a balanced diet and incorporat ing regular physical activity into day- Will screen for diabetes with A1c Adult [facility] th examination 904200010 Z00.00 - Reviewed risks for cardiovasc ular disease, infection, and cancer; ordered screening tests as appropriat e Microcytic anemia 242195 007 D50.9 - Noted on labs in 2021- f/u CBC, ferritin, and iron studies Pruritus of vagina 17959 003 L29.3 - f/u NuSwab; will treat as indicated by results [id number] MD Johnnie Roman 14 IM [address] [facility] [address] [place] [address] 12/27/2022 10:56:09 12/28/2022 14:51:41 Venereal disease screening 932482722 Z11.3 exposed to STIs and unprotecte d [...] at this time.HPV vaccine update. hivrprHbsA gnuswabHCV [id number] MD Yaneli EDOUARD (SMUDGER) [address] [place] [address] 04/05/2023 17:20:55 04/14/2023 08:31:58 Menorrhagia 169150242 N92.0 N94.6 - DDx: polyp vs adenomyosi [...] pain Surveillan ce of subcutaneous contraceptive implant 756531095 Z30.46 - Palpable in left upper arm Iron defic iency anemia 26823581 D50.9 - History of anemia- f/u CBC, iron studies; will treat as indicated by results [id number] BERTA ERICKSON MD [facility] (SMUDGER) [address] [place] [address] 09/30/2023 16:32:45 10/13/2023 12:53:24 Deep venous thrombosis of lower extremity 347025324 I82.412 - On Eliquis- DVT seems to be unprovoked , with unclear FHx of thrombophi jenny; referred to hematology for further evaluation and treatment Osteoarthr itis of knee 292984054 M17.9 M25.569 - Analgesic options limited due to DOAC use- Continue Tylenol as needed. Will add lidocaine patches PRN. Advised patient to talk with pharmacist about topical diclofenac gel. Iron defic iency anemia 85441647 D50.9 - Due to menorrhagi a- Previously did not respond to oral iron- Referred to hematology as above; anticipate need for iron infusions Menorrhagia 737850385 N9 2.0 N94.6 - DDx: polyp vs [...] schedule these procedures at earliest availabili ty. [id number] MD Yaneli EDOUARD (SMUDGER) [address] [place] [address] 10/14/2023 08:53:49 10/21/2023 10:56:13 Menorrhagia [id number] N92.0 N94.6 - DDx: polyp vs adenomyosi [...] Deep venou s thrombosis of lower extremity [id number] I82.412 - DVT seems to be unprovoked , with unclear FHx of thrombophi jenny; referred to hematology for further evaluation and treatment- On Eliquis. 30-day Starter pack picked up 09/28/23; prescribed refill for next 2 months [id number] MD Roya EDOUARDhalto (SMUDGER) [address] [place] [address] 11/11/2023 10:43:19 11/18/2023 12:25:27 Uses IUD (intrauterine device) contraception [id number] Z97.5 - IUD in place with strings noted from cervical os- f/u as needed or when IUD is due for removal/re placement Osteoarthr itis of knee [id number] M17.9 M25.569 - Analgesic options limited due to DOAC use- Continue Tylenol as needed- Interested in physical therapy for crampy leg pain and chronic knee pain [id number] MD aYneli EDOUARD (SMUDGER) [address] [place] [address] 01/06/2024 11:40:35 01/14/2024 12:20:52 Chronic back pain [id number] G89.29 M54.9 - Patient states she has dealt with this for some time, now with recent exacerbati on of pain. On prednisone taper from ED, as well as muscle relaxant. Patient states she did not receive Hubert Rx from pharmacy, and [facility] does not show her in the [...] requested pain management referral; referral placed today [id number] MD Yaneli EDOUARD (SMUDGER) [address] [place] [address] 02/02/2024 11:40:03 02/06/2024 11:50:11 Pain of right knee joint [id number] M25.561 - Pain, swelling, and abnormal right knee exam after direct trauma to right knee 2 weeks ago- Hospital right knee XR unremarkab le- Has upcoming appointmen ts with pain management and PT- Referred to ortho for further evaluation and treatment [id number] MD Yaneli EDOUARD (SMUDGER) [address] [place] [address] 02/03/2024 14:58:15 02/06/2024 12:45:06 Adult health examination [id number] Z00.01 - Reviewed risks for cardiovasc ular disease, infection, and cancer; ordered screening tests as appropriat e- Recommende d annual flu vaccine and updated [id number] COVID vaccine; patient declined Screening for malignant neoplasm of cervix [id number] Z12.4 - Per [facility] here through [facility], patient had Pap done in 2020 but unable to review result- Due for co-testing ; collected today Microcytic anemia [id number] D50.0 D51.9 D52.9 - Noted on [...] to heme/onc office. Vitamin D deficiency [id number] E55.9 - Vitamin D levels 11.1 in June 2022; will recheck levels Obesity [id number] E66.81 3 Z68.42 - Provided handout on healthy lifestyle [id number] MD Yaneli EDOUARD (SMUDGER) [address] [place] [address] 02/28/2024 16:29:55 03/12/2024 11:15:52 Pain of right knee joint [id number] 20601 M25.561 - 02/02/24: Pain, swelling, and abnormal right knee exam after direct trauma to right knee 2 weeks ago. [facility] right knee XR unremarkab le. Has upcoming appointmen ts with pain management [...] placed Mixed anxi ety and depressive disorder [id number] F41.8 - In the past, used to take 0.5 tablet Ativan- Interested in therapy to discuss current stressors. Referred to counseling for further evaluation and treatment. Will add hydroxyzin e 25 mg TID PRN for anxiety and insomnia. [id number] MD Yaneli EDOUARD (SMUDGER) [address] [place] [address] 05/29/2024 12:16:01 06/05/2024 15:54:25 Osteoarthritis of knee [id number] M17.9 M25.569 - Continue Tylenol, heating pad, and Voltaren gel as needed- Will wait on starting oral NSAIDs, as patient may need to restart DOACs for history of DVT and unclear history of hypercoagu ability- Referred to orthopedic surgery for further evaluation and treatment. May benefit from knee injections . Iron defic iency anemia [id number] D50.9 - Due to menorrhagi a- Improved after iron infusions x2; prescribed oral iron but not taking any longer- f/u CBC, iron studies, ferritin Deep venou s thrombosis [id number] Z86.718 - History of DVT in September 2023- Was told she could stop her Eliquis during recent ED visit- Recommend following up with hematologi regarding need for long-term DOAC use with unclear FHx of hypercoagu ability Elevated blood-pressure reading without diagnosis of hypertension [id number] R03.0 - Likely secondary to pain vs [...] Name 06/05/2024 1 [employer] [facility]TER [facility] OF [facility] ON OR AFTER 02/12/2020 (MEDICAID REPLACEMENT - HMO) Vanessa Olmos [id number] Vanessa Olmos 01/19/2022 1 *SELF PAY* As cristina Olmos Notes Date Note Type Note Provider Name and Address Organization Details Recorded Time 01/06/2024 text/html ROS as noted in the HPI Back pain- The other night, 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 [place] like someone stabbing in back.- Has had pain from back of neck down. Feels like pain is getting worse.- Has been taking Tylenol without much relief- [facility] ED gave her a muscle relaxant and steroid- Went to ED on 01/02 and was discharged with Flexeril, prednisone, and Hubert. Has been taking prednisone. [facility] did not receive Hubert from pharmacy. Flexeril makes her sleepy, so takes it at bedtime. Will be able to sleep for 4 hours then wakes up in pain.- Has been doing well with physical therapy for knees but has not been able to go for past week due to not having transportation. Continuing to do home exercises. BERTA ERICKSON MD Attn: Accounting,[address] [place], [address], [facility] 01/06/2024 17:07:54 02/02/2024 text/html ROS as noted in the HPI Right knee injury- 2 weekends ago, had son and puppy [...] of transportation- Also has upcoming appointment for legal support specialist- Has appointment with physical therapists Martha and Sandi on 02/13 BERTA ERICKSON MD Attn: Accounting[address] [place], [address], [facility] 02/02/2024 13:41:16 02/03/2024 text/html ROS as noted in the HPI Annual wellnessConcerns today- None Cardiovascular risk- HTN: No known FHx. High blood pressure with in 2013.- DM2: FHx in father.- HLD: FHx in father.- Personal history of DE, CVA? No- Family history of DE, CVA? FHx of DE x2 in mother, in her 50s. Infection risk- Prior testing for HIV? Yes - neg in 2021- Prior testing for HepC? Yes - neg in 2021- History of STIs? Trichomonas- Currently having unprotected sex? Yes - with one partner- Vaccines due? flu, COVID Plans for - Mirena placed 10/14/23 Cancer screenings- Breast cancer: FHx in paternal and maternal grandmothers.- Cervical cancer: Last screening at [facility] [place] in 2020 per [facility]- Colon cancer: No known FHx.- Lung cancer: Former smoker, quit 07/2023 (age 33). BERTA ERICKSON MD Attn: Accounting, [address] [facility], [place], [address], [facility] 02/03/2024 15:38:27 02/28/2024 text/html ROS as noted in the HPI Knee concerns- Sandi (PT) is concerned about patient's inability to [...] to new phone. Current phone number is [phone]- PT gave her a knee sleeve, but it is not helping- Has also tried lidocaine patches on right knee, which does not help BERTA ERICKSON MD Attn: Accounting,[address] [facility], [place], [address], [place] [facility] 03/09/2024 13:53:53 05/29/2024 text/html ROS as noted in the HPI Chronic leg painChronic leg swelling- Cannot sit, stand, stretch out or bend legs fully when swollen- Cannot keep a job because of leg swelling the day after. Has worked at [employer].- Pain from bra line down to legs- [...] MD Attn: Accounting,[address], [place], [address], [place] [facility] 05/29/2024 17:58:46 OBGyn Episode Ob Episode Information Episode Created Date Number of Fetuses Patient Bloodtype Patient rh Status Prepregnancy Weight lbs Domestic Partner Domestic Partner Phone Father Name Toolmaker Status 07/07/19 1 CLOSED Fetus Data First Name Last Name Admitted to NICU Weight (g) Sex Living Outcome Pediatric Complications Fetus ID Race Codes Race Delivery Type M Full Term [id number] Primary Juan Diego Calculation Initial Juan Diego [...] Domestic Partner Domestic Partner Phone Father Name Toolmaker Status 07/07/19 23 1 CLOSED Fetus Data First Name Last Name Admitted to NICU Weight (g) Sex Living Outcome Pediatric Complications Fetus ID Race Codes Race Delivery Type F Full Term [id number] Vaginal Juan Diego Calculation Initial Juan Diego [...]
--- NOTE | 2025-02-17 16:32 | ED.GENADULT ---
HPI - General Adult General Chief complaint: Extremity Problem,Nontraumatic Stated complaint: L leg swelling; L knee pain Time Seen by Provider: 02/17/25 15:57 History of Present Illness HPI narrative: 34-year-old female history of DVT presents emergency department for evaluation for worsening left leg swelling left leg pain. Patient states she has had worsening bilateral leg swelling over the past 2 days but worse the left is greater than the right. 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 Patient had previously been on blood thinners but had negative ultrasounds and was told to stop the blood thinners. Patient states that her leg swelling started few days ago and that she did have her left leg gave out today injured her left knee. Related Data Allergies Allergy/AdvReac Type Severity Reaction Status Date / Time sulfamethoxazole (From AdvReac Mild Vomiting Verified 02/17/25 15:53 Bactrim) trimethoprim (From Bactrim) AdvReac Mild Vomiting Verified 02/17/25 15:53 PMFSH Past Medical History Medical History History of miscarriage with twins Left leg DVT Menorrhagia with irregular cycle Anxiety Surgical History Surgical History History of section Family History Family History Father Family history of diabetes mellitus in first degree relative Social History Social History Smoking status: Former smoker Second hand tobacco smoke exposure: No Smoking end date: 03/14/13 Alcohol intake: never Substance use type: does not use Gender identity (if verbalized by the patient): Female Course Vital Signs Vital signs: Vital Signs Temperature 97.6 F 02/17/25 15:51 Pulse Rate 84 02/17/25 15:51 Respiratory Rate 16 02/17/25 15:51 Blood Pressure 157/99 H 02/17/25 15:51 Pulse Oximetry 100 02/17/25 15:51 Oxygen Delivery Room Air 02/17/25 15:51 Temperature 97.6 F 02/17/25 15:51 Pulse Rate 84 02/17/25 15:51 Respiratory Rate 16 02/17/25 15:51 Blood Pressure 157/99 H 02/17/25 15:51 Pulse Oximetry 100 02/17/25 15:51 Oxygen Delivery Room Air 02/17/25 15:51 MDM MDM Narrative Medical decision making narrative: 34-year-old female presents emergency department for evaluation for left leg swelling. Patient is currently afebrile but does have a leukocytosis 10.6 hemoglobin 13.8. Patient has an INR 1.1. No acute abnormalities on her CMP. Ultrasound was negative for DVT bilaterally. X-ray shows no acute fracture dislocation. Patient was updated the results of her workup. Patient was encouraged of close follow-up with primary care physician for additional outpatient testing. All questions concerns were addressed. Differential Diagnosis Differential Diagnosis: Knee contusion, internal derangement of knee, DVT, CHF, cellulitis Lab Data 02/17/25 16:51 02/17/25 16:51 Labs: Lab Results 02/17/25 Range/Units 16:51 WBC 10.6 H (4.5-10.0) K/mm3 RBC 4.62 (4.2-5.4) M/mm3 Hgb 13.8 (12.0-15.0) g/dL Hct 41.1 (37.0-47.0) % MCV 89.0 (80-100) fl MCH 29.9 (26-34) pg MCHC 33.6 (32-36) g/dl RDW 12.7 (11.5-14.5) % Plt Count 350 (150-375) k/mm3 MPV 9.3 (7.4-10.4) fl Immature Gran % (Auto) 0.2 (0-0.5) % Neut % (Auto) 67.6 (45.5-73.1) % Lymph % (Auto) 24.9 (18.3-44.2) % [place] % (Auto) 5.0 (2.6-8.5) % Eos % (Auto) 2.0 (0-4.4) % Baso % (Auto) 0.3 (0.2-1.2) % Lymph # (Auto) 2.63 (0.9-3.2) K/mm3 [place] # (Auto) 0.5 (0.1-0.6) K/mm3 Eos # (Auto) 0.2 (0-0.3) K/mm3 Baso # (Auto) 0.0 (0.0-0.1) K/mm3 Abs Immat Gran (auto) 0.02 (0.00-0.031) K/mm3 Absolute Neuts (auto) 7.1 H (1.3-6.7) K/mm3 Absolute Nucleated RBC 0.000 (0.0-0.012) K/mm3 Nucleated RBC % 0.0 (0.0-0.2) % PT 14.1 (11.1-14.7) Seconds INR 1.1 APTT 28.9 (22.3-36.8) Seconds Sodium 136 L (137-145) mmol/L Potassium 4.0 (3.4-5.0) mmol/L Chloride 106 (98-107) mmol/L Carbon Dioxide 25 (22-30) mmol/L Anion Gap 5 (4-12) mmol/L BUN 10 (7-17) mg/dL Creatinine 0.87 (0.7-1.0) mg/dL Estim Creat Clear Calc 140 ml/min Estimated GFR > 60 (59 - ) Glucose 90 (65-110) mg/dL Calcium 9.0 (8.4-10.2) mg/dL Total Bilirubin 0.4 (0.2-1.3) mg/dL AST 23 (14-36) U/L ALT 14 (6-35) U/L Alkaline Phosphatase 66 (38-126) U/L NT-Pro-B Natriuret Pep 33 (19.9-100) pg/mL Total Protein 8.3 H (6.3-8.2) g/dL Albumin 4.1 (3.5-5.1) g/dL Imaging Data Radiologist's impression: ITS Impressions Venous Doppler Study 02/17/25 17:32 Impression: Negative for DVT. Knee X-Ray 02/17/25 17:55 Impression: No acute fracture or malalignment. Discharge Plan Discharge Clinical Impression: Localized swelling of both lower legs, Acute pain of left knee Patient Disposition: Home Condition: Stable Instructions: Antibiotic Form Additional Instructions: Have close follow-up with your primary care physician for additional outpatient cardiac testing. Patient Language: Uzbek Prescriptions: No Action diclofenac sodium 50 mg tablet,delayed release (DR/EC) 50 mg PO Q12H PRN (Reason: pain) Qty: 20 0RF diazepam [Valium] 5 mg tablet 5 mg PO TID PRN (Reason: anxiety) Qty: 15 0RF meclizine [Antivert] 25 mg tablet,chewable 25 mg PO TID Qty: 20 0RF methylprednisolone [Medrol (Kaiden)] 4 mg tablets,dose pack See Rx Instructions .ROUTE .COMPLEX Qty: 21 0RF Rx Instructions: for 6 days cyclobenzaprine 10 mg tablet 10 mg PO HS PRN (Reason: muscle spasm) Qty: 10 0RF diclofenac potassium 50 mg tablet 50 mg PO TID PRN (Reason: pain) Qty: 21 0RF Eliquis DVT-PE Treat 30D Start 5 mg (74 tabs) tablets,dose pack See Rx Instructions .ROUTE .COMPLEX Qty: 74 0RF Rx Instructions: orally per package directions acetaminophen 500 mg capsule 1,000 mg PO Q6H PRN (Reason: pain) Qty: 20 0RF ferrous sulfate 325 mg (65 mg iron) tablet 325 mg PO EVERY OTHER DAY 30 Days Qty: 15 0RF nitrofurantoin monohyd/m-cryst [Macrobid] 100 mg capsule 100 mg PO Q12H 5 Days Qty: 10 0RF Rx Instructions: must administer with a meal/food amoxicillin-pot clavulanate 875-125 mg tablet 1 tablet PO Q12H Qty: 20 0RF ibuprofen 800 mg tablet 800 mg PO TID PRN (Reason: pain) Qty: 14 0RF meclizine 25 mg tablet 25 mg PO TID PRN (Reason: dizziness) Qty: 15 0RF ondansetron 4 mg tablet,disintegrating 4 mg PO Q8H PRN (Reason: nausea and vomiting) Qty: 15 0RF ondansetron 4 mg tablet,disintegrating 4 mg PO Q8H PRN (Reason: nausea and vomiting) Qty: 10 0RF Follow-up/Referrals: Vandana Moore DO [Physician, Family Practice] PHYSICIAN,LAND SURVEYOR [Primary Care Provider, Internal Medicine] Stand Alone Forms: Work/School Release IP
[2025-02-17 16:57] LABS: Hematocrit 41.1 % (37.0-47.0); Hemoglobin 13.8 g/dL (12.0-15.0); Immature Granulocyte Percent A 0.2 % (0-0.5); Lymphocytes Absolute Auto 2.63 K/mm3 (0.9-3.2); Mean Corpuscular HGB Conc 33.6 g/dl (32-36); Mean Corpuscular Hemoglobin 29.9 pg (26-34); Mean Corpuscular Volume 89.0 fl (80-100); Nucleated Red Blood Cells Absolute Auto 0.000 K/mm3 (0.0-0.012); Nucleated Red Blood Cells Perc 0.0 % (0.0-0.2); Platelet Count Result 350 k/mm3 (150-375); Red Blood Count 4.62 M/mm3 (4.2-5.4); White Blood Count 10.6 K/mm3 (4.5-10.0)
[2025-02-17 17:09] LABS: INR 1.1; Partial Thromboplastin Time 28.9 Seconds (22.3-36.8); Prothrombin Time 14.1 Seconds (11.1-14.7)
[2025-02-17 17:15] LABS: Alanine Aminotransferase 14 U/L (6-35); Albumin Level 4.1 g/dL (3.5-5.1); Alkaline Phosphatase 66 U/L (38-126); Anion Gap 5 mmol/L (4-12); Aspartate Amino Transferase 23 U/L (14-36); Bilirubin,Total 0.4 mg/dL (0.2-1.3); Blood Urea Nitrogen 10 mg/dL (7-17); Calcium 9.0 mg/dL (8.4-10.2); Carbon Dioxide 25 mmol/L (22-30); Chloride 106 mmol/L (98-107); Estimated CRCL calculation 140 ml/min; Estimated Glomerular Filt Rate > 60; Glucose 90 mg/dL (65-110); Potassium 4.0 mmol/L (3.4-5.0); Sodium 136 mmol/L (137-145); Total Protein 8.3 g/dL (6.3-8.2)
[2025-02-17 17:24] LABS: NT Pro B Type Natriuretic Pept 33 pg/mL (19.9-100)
[2025-02-17 18:47] VITALS: BP 144/94; PULSE 82; RESP 16; O2SAT 100
== END 2025-02-17 18:50 | disposition home or self-care (01) ==
PROVIDERS: Emergency Provider Emergency Medicine
DX: R22.43 Localized swelling, mass and lump, lower limb, bilateral (principal); M25.562 Pain in left knee; Z86.718 Personal history of other venous thrombosis and embolism; Z87.891 Personal history of nicotine dependence
CPT/HCPCS: 36415; 73562; 80053; 83880; 85025; 85610; 85730; 93970; 99284

== ENCOUNTER 2025-02-23 12:47 | Emergency (ER) | payer OTHER, SELFPAY ==
[2025-02-23 13:05] VITALS: BP 134/87; PULSE 79; RESP 16; TEMP 36.2; O2SAT 99
[2025-02-23 13:10] LABS: EDSTREPNEGPOS1 Negative (Negative)
--- NOTE | 2025-02-23 13:26 | ED_ITS ---
HPI - URI/Sore Throat General Chief Complaint: Upper Respiratory Infection Stated Complaint: sore throat, no appetite patient presents to the [facility] with complaints of sore throat, nasal congestion, headache, fatigue, chills, chest congestion, productive cough that began 3 days ago. no medications taken for symptoms but has attempted hot teas with honey. No known sick contacts. Denies fever, chills, body aches, dizziness, shortness of breath, wheezing, nausea, vomiting, diarrhea Related Data Allergies Allergy/AdvReac Type Severity Reaction Status Date / Time sulfamethoxazole (From AdvReac Mild Vomiting Verified 02/17/25 15:53 Bactrim) trimethoprim (From Bactrim) AdvReac Mild Vomiting Verified 02/17/25 15:53 Review of Systems Constitutional: Constitutional: Reports as per HPI, Reports no additional constitutional complaints, Denies chills, Reports fatigue, Denies fever(s) and Denies weakness Eyes: Eyes: Reports no additional eye complaints ENT: Reports as per HPI, Denies vertigo, Denies dizziness, Reports nasal congestion and Reports sore throat Cardiovascular: Cardiovascular: Reports no additional cardiovascular complaints Respiratory: Respiratory: Reports as per HPI, Reports chest congestion, Reports cough, Denies dyspnea and Denies wheezing Gastrointestinal: Gastrointestinal: Reports no additional gastrointestinal complaints Genitourinary: Genitourinary: Reports no additional female genitourinary complaints Musculoskeletal: Musculoskeletal: Reports as per HPI, Denies arthralgias, Denies joint swelling and Denies muscle cramps Integumentary/Breasts: Skin/Breast: Reports as per HPI, Denies pruritus, Denies erythema and Denies rash Neurologic: Reports as per HPI, Reports headache(s), Denies numbness and Denies weakness Psychiatric: Psychiatric: Reports no additional psychiatric complaints Endocrine: Endocrine: Reports no additional endocrine complaints Hematologic/Lymphatic: Hematologic/Lymphatic: Reports no additional cindy tologic/lymphatic complaints Allergic/Immunologic: Allergic/Immunologic: Reports no additional allergic/immunologic complaints [facility] Past Medical History Medical History History of miscarriage with twins Left leg DVT Menorrhagia with irregular cycle Anxiety Surgical History Surgical History History of section Family History Family History Father Family history of diabetes mellitus in first degree relative Social History Social History Smoking status: Former smoker Second hand tobacco smoke exposure: No Smoking end date: 03/14/13 Alcohol intake: never Substance use type: does not use Gender identity (if verbalized by the patient): Female Exam Const: General: healthy appearing and no acute distress Nutritional Appearance: well nourished Orientation/consciousness: patient oriented x3 Limitations: no limitations HENMT: Head: normal to inspection Ears: external ears normal and TM's normal bilaterally Face/Nose/Sinus: Normal external nose present and Normal nares present Face and sinus: normal facial exam and sinuses nontender Mouth: Yes Normal oral and palatal mucosa present, Yes lip normal and Yes moist mucous membranes Throat: posterior oropharynx abnormal ( mild edema and erythema no exudate) Neck: Neck: normal visual inspection and no lymphadenopathy Resp: Effort & Inspection: normal respiratory effort Auscultation: clear to auscultation bilaterally Cardio: Rate: regular rate Rhythm: regular rhythm Skin: General skin exam: normal color Rashes: no rashes Wounds: no wounds Neuro: General: patient oriented x3 Speech: normal speech Gait exam (Neuro): Normal gait present Extrem: General: normal to inspection and no clubbing, cyanosis or edema Psych: Mental Status: mental status grossly normal Affect: normal affect Attitude: cooperative Course Course Level of Care: Express Care Visit Vital Signs Vital signs: Vital Signs Temperature 97.2 F L 02/23/25 13:05 Pulse Rate 79 02/23/25 13:05 Respiratory Rate 16 02/23/25 13:05 Blood Pressure 134/87 02/23/25 13:05 Pulse Oximetry 99 02/23/25 13:05 Temperature 97.2 F L 02/23/25 13:05 Pulse Rate 79 02/23/25 13:05 Respiratory Rate 16 02/23/25 13:05 Blood Pressure 134/87 02/23/25 13:05 Pulse Oximetry 99 02/23/25 13:05 MDM MDM Narrative Medical decision making narrative: Strep negative. Likely viral in nature will send culture The patient was evaluated by myself in the express care. History is obtained from patient who is an independent historian and physical exam was performed. Available medical records were reviewed at this time. Exam findings show no acute concerns or changes; patient is non-toxic appearing and is in no distress. Patient is appropriate for outpatient treatment and follow-up. I have evaluated and discussed social determinants of health with the patient that could potentially impact subsequent diagnosis and treatment plans. Differential diagnosis and treatment plan were discussed with the patient. Patient agrees with discussion and after shared medical decision making agrees with plan of care. All questions were answered to the patient's satisfaction. Differential Diagnosis Differential Diagnosis: strep, respiratory infection, pharyngitis, tonsillitis Medical Records I have reviewed the following patient records and this information was taken into consideration when formulating the assessment and plan.: previous labs, previous ER visits, previous hospitalizations and previous clinic visits Lab Data MDM Lab Attestation statement: I personally reviewed the patient's lab results. Labs: Lab Results 02/23/25 Range/Units 13:08 POC Grp A Strep Screen Negative (Negative) Discharge Plan Discharge Clinical Impression: Pharyngitis Patient Disposition: Home Condition: Stable Instructions: Antibiotic Form, Acute Bronchitis (ED), Cold Symptoms (ED) Additional Instructions: Viral illness may last between 7-12days; antibiotic is NOT recommended at this time. Recommend antihistamine such as Benadryl at night time and Clariti n/Zyrtec/Carleen during the day. Also using steroid nasal spray like Flonase can help with symptoms and congestion. Using sudafed for significant congestion will also give some relief. Cough syrup may cause drowsiness; avoid driving or take it at night time. Use inhaler as needed for cough, wheezing, shortness of breath or chest tightness. Also, recommend symptomatic treatment includes: rest, fluids, increase humidity of the air at home. Recommend Acetaminophen or nonsteroidal anti-inflammatory agents(NSAIDs) as directed in the bottle to reduce fever and/pain/headache. Avoid smoking/second-hand smoke. Limit visits to areas with large crowds. Frequent hand washing or hand forensic dna analyst is one of the best ways to prevent spread of infection. Please schedule a followup visit with your personal physician for further evaluation and treatment within 3-5days. Including recheck and discussion of your blood pressure. If your symptoms persist, change or worsen significantly before you can contact your personal physician then please, without delay, go to the emergency department for further evaluation. Patient Language: Uzbek Prescriptions: New benzonatate 200 mg capsule 200 mg PO TID PRN (Reason: cough) Qty: 30 0RF methylprednisolone [Medrol (Kaiden)] 4 mg tablets,dose pack See Rx Instructions .ROUTE .COMPLEX Qty: 21 0RF Rx Instructions: for 6 days No Action diclofenac sodium 50 mg tablet,delayed release (DR/EC) 50 mg PO Q12H PRN (Reason: pain) Qty: 20 0RF diazepam [Valium] 5 mg tablet 5 mg PO TID PRN (Reason: anxiety) Qty: 15 0RF meclizine [Antivert] 25 mg tablet,chewable 25 mg PO TID Qty: 20 0RF diclofenac potassium 50 mg tablet 50 mg PO TID PRN (Reason: pain) Qty: 21 0RF acetaminophen 500 mg capsule 1,000 mg PO Q6H PRN (Reason: pain) Qty: 20 0RF ibuprofen 800 mg tablet 800 mg PO TID PRN (Reason: pain) Qty: 14 0RF Follow-up/Referrals: UNKNOWN,DOCTOR [Primary Care Provider] Stand Alone Forms: Work/School Release IP Time of Disposition: 13:28
== END 2025-02-23 13:36 | disposition home or self-care (01) ==
PROVIDERS: Emergency Provider Nurse Practitioner Family
DX: J02.9 Acute pharyngitis, unspecified (principal); Z87.891 Personal history of nicotine dependence; Z86.718 Personal history of other venous thrombosis and embolism; F41.9 Anxiety disorder, unspecified
CPT/HCPCS: 87081; 87880; 99213; G0463